=== PATIENT | female | born 1940 | race Caucasian/White ===

== ENCOUNTER 2017-06-26 09:20 | Outpatient (CLI) | payer MEDICARE ==
[~2017-06-26 09:20] MED LIST: Sodium Chloride 0.9% 15 ML NEB ONE
--- NOTE | 2017-06-26 12:42 | HP ---
DATE OF SERVICE: 06/26/2017. HISTORY OF PRESENT ILLNESS: Ms. Светлана Garcia is a very pleasant 77-year-old accompanied by her daughter and a caregiver who presents to the Wound Center for evaluation of an ulceration of the right medial heel. The patient also has a wound of the left anterior lower leg in addition to a skin tear of the right upper extremity. The patient's daughter states that Ms. Garcia has had a right medial heel wound for the past 3 weeks. The patient's daughter states that suddenly one morning, a blister over the right medial heel was noted which the patient's daughter thought may have developed from pressure or shear stress from a shoe or from lying in bed. The patient's daughter states that Ms. Garcia first saw a physician's research assistant professor in the [facility] [address] for the intact blister of her right medial heel. The patient's daughter was told to apply moleskin around the blister. When the blister worsened in its appearance, the patient was seen by Dr. Dorado. The patient's daughter states that a goode and red discoloration around the wound was noted, and upon opening of the right medial heel lesion, yellow thick drainage was encountered. The patient's daughter states that the base of the wound appeared necrotic. At this time, the patient was referred to the Wound Center for further evaluation and treatment. Cultures of the wound were also obtained by Dr. Dorado. At this time, the patient was placed on dressing changes by [facility] and Aquacel for the right medial heel wound followed by 4 x 4s and Kerlix. Apparently, the patient had copious drainage associated with this right medial heel lesion. PAST MEDICAL HISTORY: 1. Diabetes mellitus. 2. Arthritis. 3. Parkinson's. PAST SURGICAL HISTORY: 1. Hysterectomy. 2. Appendectomy. MEDICATIONS: 1. Bactrim DS. 2. Lasix. 3. Sinemet. 4. Macrodantin. 5. Pantoprazole. 6. Donepezil. 7. Clonazepam. 8. Gabapentin. 9. Potassium chloride. 10. Mirtazapine. 11. Prednisone. 12. Toprol-XL. 13. HCTZ. 14. Norvasc. 15. Amaryl. 16. Primidone. 17. Duloxetine. 18. Singulair. 19. Metformin. 20. Crestor. 21. Eliquis. 22. Magnesium. 23. Vitamin C. 24. Vitamin D3. 25. Centrum. 26. Tylenol #3. ALLERGIES: E.E.S., DURICEF, and Z-RICO. SOCIAL HISTORY: Social history is negative for tobacco or ETOH use. FAMILY HISTORY: Family history is negative for diabetes mellitus or coronary artery disease. REVIEW OF SYSTEMS: The patient's daughter reports that the patient has had shingles x4. PHYSICAL EXAMINATION: VITAL SIGNS: Temperature 98.2, pulse 77, respirations 19, blood pressure 138/ 59. Accu-Chek 65. GENERAL: A 77-year-old female sitting on wheelchair in examination room, in no acute distress. HEENT: Normocephalic, atraumatic. NECK: No nuchal rigidity. CHEST: Clear to auscultation. CARDIOVASCULAR: Regular rate and rhythm. ABDOMEN: Soft. EXTREMITIES: An ulceration of the right medial heel is present, which measures approximately 4.0 x 2.2 cm. Granulation tissue is present within the wound margins. No purulent drainage is associated with the wound. No erythema of the skin surrounding the wound is present. No maceration of the skin of the periwound is noted. A skin tear of the right upper extremity is present, which appears to be healing without complications or any signs of infection. A blister of the left anterior lower leg is present, which measures approximately 2.5 x 1.5 cm. The blister appears to be filled with hemorrhagic fluid. The blister is intact. No erythema of the skin surrounding the blister is present. No maceration of the skin of the periwound is noted. A posterior tibial pulse is palpable on the left. Edema of the left foot and lower leg is present on exam today. ASSESSMENT AND PLAN: 1. Multiple extremity wounds as described above. For the right heel wound, the patient is to receive dressing changes of Silverlon, 4 x 4s, and Kerlix 3 times per week after cleansing and irrigation with the assistance of Home Health. For the blister of the left anterior lower leg, the patient is to receive weekly dressing changes of Silverlon, Webril, and the 3M Coban 2-layer compression system. For the right upper extremity skin tear, the patient is to receive dressing changes of Mepilex border 3 times per week after cleansing and irrigation. The patient is to continue p.o. antibiotics as previously prescribed. Orders will be transmitted to Home Health for the preceding dressing changes. I will see Ms. Garcia again in two weeks. The patient, her daughter, and her caregiver all understand and are in agreement with the preceding treatment plan. 2. Diabetes mellitus. The patient's Accu-Chek in clinic today is 65. The patient has been told that for optimal wound healing, her blood glucoses should remain below 150. 3. Arthritis. 4. Parkinson's. MTDD
== END 2017-06-26 09:21 | disposition home or self-care (01) ==
LOC: WCC 09:20
PROVIDERS: ATTEND Family Medicine
DX: E11.621 Type 2 diabetes mellitus with foot ulcer (principal); L97.419 Non-pressure chronic ulcer of right heel and midfoot with unspecified severity; M19.90 Unspecified osteoarthritis, unspecified site; G20 Parkinson's disease
CPT/HCPCS: 29581; 97139; G0463; 99203; A4218

== ENCOUNTER 2017-07-10 10:21 | Outpatient (CLI) | payer MEDICARE ==
--- NOTE | 2017-07-10 12:00 | PRG ---
DATE OF SERVICE: 07/10/2017 HISTORY: Ms. Светлана Garcia is a very pleasant 77-year-old accompanied by a caregiver who presents to [facility] for evaluation of an ulceration of the left medial heel. The patient also has a wound of the left anterior lower leg. The patient's daughter stated at the time of the patient's initial presentation to the Wound Center that Ms. Garcia had developed a left medial heel wound 3 weeks previo usly. The patient's daughter stated that suddenly one morning, a blister over the left medial heel w as noted which she thought may have developed from pressure or shear stress from a shoe or from lying in bed. The patient's daughter stated that Ms. Garcia first saw a physician's physical laboratory assistant in the [facility] for the intact blister of her left medial heel. The patient's daughter was told to apply Mo leskin around the blister. When the blister worsened in its appearance, the patient was seen by Dr. Dorado. The patient's daughter stated that a goode and red discoloration around the wound was noted and upon opening of the left medial heel lesion, yellow thick drainage was encountered. The patient's d aughter stated that the base of the wound appeared necrotic. At this time, the patient was referred to the Wound Center for further evaluation and treatment. Cultures of the wound were also obtained b kali Dorado. At this time, the patient was placed on dressing changes by Home Health of hydrogel and Aquacel AG for the left medial heel wound followed by 4 x 4s and Kerlix. Apparently, the patient exp erienced copious drainage associated with her left medial heel lesion. After being seen in the Wound Center, the patient was placed on dressing changes of Silverlon, 4 x 4's, and Kerlix 3 times per wee k after cleansing and irrigation for the right heel wound. Silverlon, Webril, and the 3m Coban 2 lay er compression system were applied to the wound of the left anterior lower leg. The patient has been receiving dressing changes by Home Health as prescribed. PHYSICAL EXAMINATION: VITAL SIGNS: Temperature 97.9, pulse 66, respirations 18, blood pressure 184/77. Accu-Chek 152. EXTREMITIES: An ulceration of the right medial heel is present which measures approximately 2.8 x 0. 9 cm. Granulation tissue is present within the wound margins. No purulent drainage is associated wi th the wound. No erythema of the skin surrounding the wound is present. No maceration of the skin o f the periwound is noted. A wound of the left anterior lower leg is present which measures approxima tely 2.0 x 1.3 cm. No purulent drainage is associated with the wound. No erythema of the skin surro unding the wound is present. No maceration of the skin of the periwound is noted. A dorsalis pedis pulse is palpable on the left. No significant edema of the left foot or lower leg is present on exam today. ASSESSMENT AND PLAN: 1. Right heel and left anterior lower leg wounds as described above. For the right heel wound, dres sing changes of Silverlon, 4 x 4s and Kerlix will be continued 3 times per week after cleansing and i rrigation with the assistance of Home Health. For the wound of the left anterior lower leg, the chuyita ent is to receive weekly dressing changes of Silverlon, Webril, and 3m Coban 2 layer compression syst em. Orders will be transmitted to Home Health for the preceding dressing changes. I will see Ms. Michael arreola again in two weeks. 2. Diabetes mellitus. The patient's Accu-Chek in clinic today is 152. The patient has been reminde d that for optimal wound healing, her blood glucoses should remain below 150. 3. Arthritis. 4. Parkinson's.
== END 2017-07-10 10:22 | disposition home or self-care (01) ==
LOC: WCC 10:21
PROVIDERS: ATTEND Family Medicine
DX: E11.621 Type 2 diabetes mellitus with foot ulcer (principal); L97.419 Non-pressure chronic ulcer of right heel and midfoot with unspecified severity; S81.802D Unspecified open wound, left lower leg, subsequent encounter; M19.90 Unspecified osteoarthritis, unspecified site; G20 Parkinson's disease

== ENCOUNTER 2017-07-24 11:16 | Outpatient (CLI) | payer MEDICARE ==
--- NOTE | 2017-07-24 20:06 | PRG ---
DATE OF SERVICE: 07/24/2017 HISTORY: Ms. Светлана Garcia is a very pleasant 77-year-old, accompanied by a caregiver, who presents to the Wound Center for evaluation of an ulceration of the right medial heel. The patient also has a wo und of the left anterior lower leg. The patient's daughter stated at the time of the patient's initi al presentation to the Wound Center, Ms. Garcia had developed a right medial heel wound 3 weeks previo usly. The patient's daughter stated that suddenly one morning, a blister over the right medial heel was noted which she thought may have developed from pressure or shear stress from a shoe or from lyin g in bed. The patient's daughter stated that Ms. Garcia first saw physician's nurse practitioner physicians assistant in the [facility] for the intact blister of her right medial heel. The patient's daughter was told to apply M oleskin around the blister. When the blister worsened in its appearance, the patient was seen by Dr. Dorado. The patient's daughter stated that a goode and red discoloration around the wound was noted an d upon opening of the right medial heel lesion, yellow thick drainage was encountered. The patient's daughter stated that the base of the wound appeared necrotic. At this time, the patient was referre d to the Wound Center for further evaluation and treatment. Cultures of the wound were also obtained by Dr. Dorado. At this time, the patient was placed on dressing changes by Home Health of hydrogel an d Aquacel AG for the right medial heel wound followed by 4 x 4s and Kerlix. Apparently, the patient experienced copious drainage associated with her right medial heel lesion. [facility], the patient was placed on dressing changes of Silverlon, 4 x 4's, and Kerlix 3 times per week after cleansing and irrigation for the right heel wound. Silverlon, Webril, and the 3m Coban 2 layer compression system were applied to the wound of the left anterior lower leg. The patient has been receiving dressing changes by Home Health as previously prescribed. PHYSICAL EXAMINATION: VITAL SIGNS: Temperature 98.6, pulse 90, respirations 19, blood pressure 131/75. Accu-Chek 117. EXTREMITIES: An ulceration of the right medial heel is present which measures approximately 2.0 x 0. 9 cm. Granulation tissue is present within the wound margins. No purulent drainage is associated wi th the wound. No erythema of the skin surrounding the wound is present. No maceration of the skin o f the periwound is noted. A wound of the left anterior lower leg is present which measures approxima tely 1.3 x 2.0 cm. No purulent drainage is associated with the wound. No erythema of the skin surro unding the wound is present. No maceration of the skin of the periwound is noted. ASSESSMENT AND PLAN: 1. Right heel and left anterior lower leg wound as described above. For the right heel wound, dress ing changes of Silverlon, 4 x 4s and Kerlix will be continued 3 times per week after cleansing and ir rigation with the assistance of Home Health. For the wound of the left anterior lower leg, the patie nt is to receive dressing changes of Silverlon and Mepilex border also 3 times per week after cleansi ng and irrigation with the assistance of Home Health. I will see Ms. Garcia again in two weeks. I sandoval ve explained to the patient should the ulceration of the left anterior lower leg failed to improve in its appearance with the preceding dressing changes, consideration will need to be given to the resum ption of treatment with the 3m Coban 2 layer compression system. The patient understands and is in a greement with the preceding treatment plan. 2. Diabetes mellitus. The patient's Accu-Chek in clinic today is 117. The patient has been reminde d that for optimal wound healing, her blood glucoses should remain below 150. 3. Arthritis. 4. Parkinson's.
== END 2017-07-24 11:17 | disposition home or self-care (01) ==
LOC: WCC 11:16
PROVIDERS: ATTEND Family Medicine
DX: E11.621 Type 2 diabetes mellitus with foot ulcer (principal); L97.419 Non-pressure chronic ulcer of right heel and midfoot with unspecified severity; S81.802D Unspecified open wound, left lower leg, subsequent encounter; M19.90 Unspecified osteoarthritis, unspecified site; G20 Parkinson's disease
CPT/HCPCS: 97602

== ENCOUNTER 2017-08-07 10:56 | Outpatient (CLI) | payer MEDICARE ==
--- NOTE | 2017-08-07 12:15 | PRG ---
DATE OF SERVICE: 08/07/2017 HISTORY: Ms. Светлана Garcia is a very pleasant 77-year-old accompanied by a caregiver who presents to [facility] for evaluation of an ulceration of the right medial heel. The patient also has a woun d of the left anterior lower leg. For the ulceration of the right medial heel, the patient has been receiving dressing changes of Silverlon, 4 x 4's, and Kerlix 3 times per week after cleansing and irr igation with the assistance of Home Health. For the wound of her left anterior lower leg, the patien t has been receiving dressing changes of Silverlon and Mepilex border and also 3 times per week after cleansing and irrigation with the assistance of Home Health. Ms. Garcia has no complaints today. [facility] denies any fever or chills. PHYSICAL EXAMINATION: VITAL SIGNS: Temperature 98.5, pulse 78, respirations 18, blood pressure 133/69. Accu-Chek 165. EXTREMITIES: An ulceration of the right medial heel is present, which measures approximately 0.2 x 0 .3 cm. Granulation tissue is present within the wound margins. No purulent drainage is associated w ith the wound. No erythema of the skin surrounding the wound is present. No maceration of the skin of the periwound is noted. A wound of the left anterior lower leg is present, which measures approxi mately 0.7 x 0.4 cm. No purulent drainage is associated with the wound. No erythema of the skin carolee rounding the wound is present. No maceration of the skin of the periwound is noted. ASSESSMENT AND PLAN: 1. Right heel and left anterior lower leg wound as described above. For the right heel wound, dress ing changes of Silverlon, 4 x 4s and Kerlix will be continued 3 times per week after cleansing and ir rigation with the assistance of Home Health. For the wound of the left anterior lower leg, the patie nt is to receive dressing changes of Silverlon and Mepilex border also 3 times per week after cleansi ng and irrigation with the assistance of Home Health. I will see Ms. Garcia again in two weeks. 2. Diabetes mellitus. The patient's Accu-Chek in clinic today is 165. The patient has been reminde d that for optimal wound healing, her blood glucoses should remain below 150. 3. Arthritis. 4. Parkinson's.
[2017-08-07] MEDS ORDERED: Sodium Chloride 0.9% 15 ML NEB ONE (21:21)
== END 2017-08-07 10:57 | disposition home or self-care (01) ==
LOC: WCC 10:56
PROVIDERS: ATTEND Family Medicine
DX: E11.621 Type 2 diabetes mellitus with foot ulcer (principal); L97.419 Non-pressure chronic ulcer of right heel and midfoot with unspecified severity; L97.229 Non-pressure chronic ulcer of left calf with unspecified severity; G20 Parkinson's disease; M19.90 Unspecified osteoarthritis, unspecified site
CPT/HCPCS: 97602; A4218

== ENCOUNTER 2017-11-18 12:45 | Inpatient (IN) | payer MEDICARE, BC ==
[2017-11-18 14:05] LABS: Bilirubin Negative (Negative); Blood, Urine Large (Negative); Clarity CLOUDY (Clear); Glucose, Urine (Dipstick) Negative (Negative); Leukocyte Large (Negative); Nitrite Positive (Negative); Protein, Urine (Dipstick) Trace mg/dL (Neg-Trace); Specific Gravity, Urine 1.018 (1.002-1.036); Urobilinogen 0.2 mg/dL (0.2-1.0); pH, Urine 5.5 (5.0-9.0)
[2017-11-18 14:06] LABS: Bacteria/HPF 2+ HPF (None Seen); Hyaline Casts/LPF 4-6 HYALINE CAST LPF (0-3 Hyaline); Pathc Cast-AUWi Flag 1.59 (0-2.49); RBC/HPF 0-3 HPF (0-3); Squamous Epithelial None Seen HPF (0-3)
[2017-11-18 14:15] LABS: Yeast-All Forms None Seen HPF (None Seen)
[2017-11-18 14:17] LABS: #Eosinphils 0.3 thou/uL (0.0-0.7); #Lymphocytes 2.1 thou/uL (1.20-3.40); #Monocytes 0.6 thou/uL (0.11-0.59); #Neutrophils 3.5 thou/uL (1.40-6.50); %Basophils 0.2 % (0.0-1.0); %Eosinophils 4.4 % (0.0-10.0); %Lymphocytes 32.8 % (21.0-51.0); %Monocytes 9.5 % (0.0-10.0); %Neutrophils 53.1 % (42.0-75.0); Hemoglobin 10.4 g/dL (12.0-16.0); Mean Corpuscular HGB CONC 33.7 g/dL (32.0-36.0); Mean Corpuscular Hemoglobin 29.1 pg (27.0-31.0); Mean Corpuscular Volume 86.5 fL (78.0-98.0); Mean Platelet Volume 7.4 fL (7.4-10.4); Platelet Count 306 thou/uL (130-400); RBC Distribution Width 14.9 % (11.5-14.5); Red Blood Cell (RBC) Count 3.56 mill/uL (4.20-5.40); White Blood Cell (WBC) Count 6.5 thou/uL (4.8-10.8)
--- NOTE | 2017-11-18 14:19 | RAD ---
SINGLE VIEW OF THE CHEST: Comparison: None. History: Altered mental status and lethargy for one week. FINDINGS: Single view of the chest shows a normal sized cardiomediastinal silhouette. There is no evidence of c onsolidation, mass, or pleural effusion. The bones are unremarkable. IMPRESSION: No evidence of acute cardiopulmonary disease. POS: [facility]
[2017-11-18 14:34] LABS: ALT (SGPT) Less than 7 U/L (8-55); AST (SGOT) 13 U/L (5-34); Albumin 2.7 g/dL (3.4-4.8); Alkaline Phosphatase 74 U/L (40-150); Anion Gap 14 mmol/L (10-20); BUN (Urea Nitrogen) 6 mg/dL (9.8-20.1); Bilirubin, Total 0.5 mg/dL (0.2-1.2); Calc. Creatinine Clearance 0 mL/min (70-130); Calcium 9.3 mg/dL (7.8-10.44); Carbon Dioxide 23 mmol/L (23-31); Chloride 107 mmol/L (98-107); Estimated GFR-MDRD 69; Globulin 2.4 g/dL (2.4-3.5); Glucose 248 mg/dL (83-110); Protein, Total 5.1 g/dL (6.0-8.3); Sodium 140 mmol/L (136-145)
[2017-11-18] MEDS ORDERED: ISOVUE-370 76%-LOCM 1 ML ONE (14:46)
[2017-11-18 15:25] LABS: CKMB 0.8 ng/mL (0-6.6); Troponin I Less than 0.010 ng/mL (< 0.028)
[2017-11-18] MEDS ORDERED: cefTRIAXone\\ROCEPHIN 2 GM VIAL ONE (15:33)
--- NOTE | 2017-11-18 15:36 | CT ---
CT OF THE BRAIN WITHOUT CONTRAST: INDICATION: Altered mental status and lethargy. COMPARISON: None. FINDINGS: There is moderate chronic small-vessel white matter ischemic change and mild generalized cerebral and cerebellar atrophy. Septum pellucidum and third ventricle are midline. There are mild dural-based calcifications seen involving the falx and suspected along the tentorium. There are air fluid levels within the maxillary sinuses bilaterally. There is mucosal thickening and air fluid levels within t he ethmoid air cells. Mastoid air cells are clear. The skull is intact. IMPRESSION: 1. Findings concerning for acute sinusitis involving the maxillary sinus and the ethmoid air cells. 2. No acute intracranial abnormality demonstrated. 3. Moderate chronic small-vessel white matter ischemic change. POS: [facility]
--- NOTE | 2017-11-18 15:38 | CT ---
CTA OF THE THORAX UTILIZING IV CONTRAST AND 3D REFORMATTED IMAGING: INDICATION: History of altered mental status and lethargy. FINDINGS: No central or segmental pulmonary embolus is demonstrated. The great vessels appear within normal li mits. There is scattered calcification involving the coronary artery and thoracic aorta. There are moderate mitral annular calcifications. There are very small bilateral pleural effusions and bibasilar atelectasis. No definite confluent ai rspace opacity or pneumothorax is evident. Visualized upper abdomen is unremarkable for acute abnormality. There is diffuse osteopenia. There is scattered degenerative and osteoarthritic change. IMPRESSION: 1. No central or segmental pulmonary embolus. 2. Bibasilar atelectasis. POS: [facility]
[2017-11-18] MEDS ORDERED: HumaLOG 300 UNITS/3 ML VIAL SC PRN (19:39)
[2017-11-18] MEDS ORDERED: Dextrose 5% in Water 1,000 ML IV PRN (19:39)
[2017-11-18] MEDS ORDERED: Guaifenesin DM 100-10/5 ML UDCUP PO PRN (19:40)
[2017-11-18] MEDS ORDERED: Bisacodyl 5 MG TAB PO PRN (19:40)
[2017-11-18] MEDS ORDERED: Senokot 8.6 MG TAB PO PRN (19:40)
[2017-11-18] MEDS ORDERED: Ondansetron ODT 4 MG TAB PO PRN (19:40)
[2017-11-18] MEDS ORDERED: Ondansetron HCl/PF 4 MG/2 ML Vial IVP PRN (19:40)
[2017-11-18] MEDS ORDERED: Pepto Bismol Chew TAB PO PRN (19:40)
[2017-11-18 20:59] LABS: Anion Gap 10 mmol/L (10-20); BUN (Urea Nitrogen) 6 mg/dL (9.8-20.1); Calc. Creatinine Clearance 0 mL/min (70-130); Calcium 8.7 mg/dL (7.8-10.44); Carbon Dioxide 26 mmol/L (23-31); Chloride 109 mmol/L (98-107); Estimated GFR-MDRD 74; Glucose 189 mg/dL (83-110); Potassium 3.9 mmol/L (3.5-5.1); Sodium 141 mmol/L (136-145)
[2017-11-18 21:00] LABS: #Eosinphils 0.3 thou/uL (0.0-0.7); #Lymphocytes 1.7 thou/uL (1.20-3.40); #Monocytes 0.6 thou/uL (0.11-0.59); #Neutrophils 3.2 thou/uL (1.40-6.50); %Basophils 0.6 % (0.0-1.0); %Eosinophils 4.8 % (0.0-10.0); %Lymphocytes 28.9 % (21.0-51.0); %Monocytes 10.9 % (0.0-10.0); %Neutrophils 54.8 % (42.0-75.0); Hemoglobin 10.2 g/dL (12.0-16.0); Mean Corpuscular HGB CONC 33.9 g/dL (32.0-36.0); Mean Corpuscular Hemoglobin 29.4 pg (27.0-31.0); Mean Corpuscular Volume 86.8 fL (78.0-98.0); Mean Platelet Volume 7.3 fL (7.4-10.4); Platelet Count 282 thou/uL (130-400); RBC Distribution Width 14.8 % (11.5-14.5); Red Blood Cell (RBC) Count 3.48 mill/uL (4.20-5.40); White Blood Cell (WBC) Count 5.9 thou/uL (4.8-10.8)
[2017-11-18] MEDS: Sodium Chloride 0.9% 1,000 ML IV SCH (22:42)
[2017-11-18] MEDS: Docusate 100 MG CAP PO SCH (22:42)
[2017-11-19 01:41] VITALS: BMI 30.3
[2017-11-19] MEDS ORDERED: clonazePAM 0.5 MG TAB PO PRN (05:43)
--- NOTE | 2017-11-19 06:30 | HP ---
CHIEF COMPLAINT: Obtained from electronic medical records, patient is being evaluated for lethargy. HISTORIAN: Electronic medical records, EMS medical staff. HISTORY OF PRESENT ILLNESS: This is a 77-year-old female with a past medical history of Parkinson's dementia, CVA, atrial fibrillation, diabetes mellitus type 2, hypertension, who is presenting from [facility] for altered mental status and lethargy, which has been progressively getting worse for the past week. Per the records, patient was recently treated for UTI and C. diff a week ag o. EMS C. diff and UTI results after treatment has been negative so patient arrives in our ED little lethargic. Patient's baseline is not really known, but per records, the patient walks around with a walker and is able to walk and toe walk. Upon talking to the patient, the patient states that she i s having some abdominal pain; however, the patient is not able to comprehend fully. REVIEW OF SYSTEMS: Positive for abdominal pain, otherwise documented in history of present illness. All other review of systems were reviewed and are negative. PAST MEDICAL HISTORY: Significant for Parkinson's dementia, atrial fibrillation, CVA, diabetes type 2, hypertension. PAST SURGICAL HISTORY: Unknown. PSYCHIATRIC HISTORY: Unknown. SOCIAL HISTORY: Cannot be obtained. FAMILY HISTORY: Reviewed and noncontributory to this hospital visit. ALLERGIES: Patient is allergic to ERYTHROMYCIN, INFLUENZA A VACCINE, AZITHROMYCIN. CURRENT MEDICATIONS: 1. Patient is on potassium chloride 10 mEq oral daily. 2. Lasix 20 mg oral daily. 3. Carbidopa/levodopa 25 mg/100 mg oral 3 times a day. 4. Losartan 25 mg oral daily. 5. Duloxetine 30 mg oral daily. 6. Primidone 100 mg oral daily. 7. Donepezil 5 mg oral daily. 8. Metoprolol tartrate 50 oral a day. 9. Eliquis 5 mg oral b.i.d. 10. Clonazepam 0.5 mg oral daily. 11. Vitamin D 1000 units oral daily. 12. Vitamin C 500 mg oral daily. 13. Humalog subcu sliding scale. 14. Mirtazapine 15 mg oral daily. 15. Pantoprazole 20 mg oral daily. PHYSICAL EXAMINATION: VITAL SIGNS: The vitals, the patient's blood pressure was 150/82, heart rate of 70, respiratory rate of 20, temperature of 98.1. GENERAL: The patient is lying in bed comfortably, not in apparent distress. Patient is able to answ er my question, states that she is having abdominal pain, otherwise does not have any other complaint s. HEENT: Normocephalic, atraumatic. Pupils are equal, round, and reactive to light. Extraocular move ments are intact. No scleral icterus noted. NECK: Supple, no JVDs, no tracheal deviations. RESPIRATORY: Chest, diminished breath sounds bilaterally in the lower lobes; however, anterior chest oreilly move symmetrically and there is no wheezing, rales, or rhonchi's that can be appreciated at th e anterior lung brasher. CARDIOVASCULAR: Positive S1, S2. Systolic murmur present, 2/6. ABDOMEN: Suprapubic tenderness noted. Normal bowel sounds. No pulsatile masses. No peritoneal sig ns. BACK: The patient has a stage II sacral decubitus. EXTREMITIES: Upper extremity, 5/5 upper extremity strength. The patient has some bandages wrapped a t the wrist region with some ecchymosis noted. Lower extremities, edema present bilaterally. Lower extremities, patient is not able to move the lower extremities. Ecchymosis noted bilaterally in lowe r extremities, good pulses bilaterally. NEUROLOGIC: Patient is uncooperative, but able to move upper extremities bilaterally. Lower extremi ties were not moving as much compared to the upper extremities. SKIN: The patient has a stage II sacral decubitus noted. Patient also has bilateral upper extremity ecchymosis and lower extremity ecchymosis with Ankur bandages wrapped around the upper extremity aroun d the wrist bilaterally. PSYCHIATRIC: The patient is alert, oriented x0 at this point. IMAGIN. CT of the head showed findings concerning for acute sinusitis involving the maxillary sinus and t he ethmoid cells. No acute intracranial abnormality demonstrated, moderate chronic small vessel whit e matter ischemic change. 2. CTA showed bibasilar atelectasis. No central or segmental pulmonary embolus. 3. CT of the chest, no acute cardiopulmonary process. LABORATORY DATA: WBC 6.5, hemoglobin 10.4, hematocrit 30.8, platelet 306. Electrolytes: Sodium 140 , potassium 4.0, chloride 107, carbon dioxide 23, BUN 6, creatinine 0.81, glucose 248. AST 13, ALT l ess than 7. Ammonia 18. BNP 78.6. Serum total protein is 5.1, albumin 2.7. Urinalysis, urine nitr ite is positive and leukocyte esterase is large. ASSESSMENT AND PLAN: This is a 77-year-old female with a history of UTI, presenting with: 1. Encephalopathy, likely due to urinary tract infection. At this point, urinalysis has been positi ve for nitrite and leukocyte esterase. We will start the patient on Rocephin. We will follow up on urine cultures. We will treat the patient and monitor patient's CBC in the a.m. 2. History of CVA. At this point, CT of the brain is negative for any acute cerebrovascular acciden t. We will continue patient on current medication. The patient is stable. 3. History of atrial fibrillation. We will continue patient on Eliquis. 4. History of diabetes mellitus. We will continue patient on diabetic medication, sliding scale. W e will monitor the patient's glucose closely. 5. History of hypertension, currently uncontrolled. We will continue patient on blood pressure medi cations as needed. 6. History of Parkinson's. We will continue patient on her Parkinson's medications. 7. Gastrointestinal prophylaxis. We will do Pepcid for GI prophylaxis and Eliquis for DVT prophylax is. 8. Sacral decubitus stage II. We will rotate patient and nurses will keep the eyes on the sacral de cubitus and address decubitus per protocol.
[2017-11-19] MEDS ORDERED: INSULIN GLARGINE HUM REC ANLOG 5 UNIT SQ SCH (08:00)
[2017-11-19] MEDS: Insulin Glargine 5 UNITS in Pre-Filled Syringe 1 EACH SC SCH (08:41)
[2017-11-19] MEDS: Metoprolol Tartrate 50 MG TAB PO SCH (08:42)
[2017-11-19] MEDS: Ascorbic Acid 500 mg Chewable Tablet PO SCH (08:42)
[2017-11-19] MEDS: Docusate 100 MG CAP PO SCH ×2 (08:42→21:00)
[2017-11-19] MEDS: Losartan 25 MG TAB PO SCH (08:42)
[2017-11-19] MEDS: Furosemide 20 MG TAB PO SCH (08:42)
[2017-11-19] MEDS: DULoxetine 30 MG CAP PO SCH (08:42)
[2017-11-19] MEDS: Carbidopa/Levodopa 25-250 mg Tablet PO SCH ×3 (08:42→21:00)
[2017-11-19] MEDS: Apixaban 5 MG TAB PO SCH ×2 (08:42→21:00)
[2017-11-19] MEDS: Magnesium Oxide 400 MG TAB PO SCH (08:43)
--- NOTE | 2017-11-19 12:48 | PRG ---
DATE OF SERVICE: 11/19/2017 Patient's history are reviewed and discussed with the patient's and son and reviewed the anisha rds, examining the patient. They report a complicated recent history and patient was doing well up u october. She had an ankle injury and then a heel ulcer, was in rehab. Subsequently developed ur inary tract infection and C. diff that was treated and she subsequently had a recurrence of UTI and p ossibly more C. diff now. She has had lethargy for the last several days and currently shows evidenc e of urinary tract infection yet again. At the moment, patient is a bit brighter and more alert than she has been the last several days. They also report that she has not been eating a couple of weeks because of early satiety. PHYSICAL EXAMINATION: VITAL SIGNS: Temperature is 99.1, pulse 96, respirations 16, O2 sat 98% on 2 liters nasal cannula, B P 128/61. GENERAL: She is age appropriate. HEART: Regular, without murmurs. LUNGS: Clear. ABDOMEN: Benign. EXTREMITIES: Warm and dry. LABORATORY DATA: Already revealing a gram negative adri in the urine. Blood culture is negative so f ar. PLAN: We will continue with the Rocephin until we can get specifics on the urine culture. Family al so request to see Dr. Hammer's, patient's neurologist for Parkinson's disease and they are somewhat dedrick perate to try to get her back to her baseline, so we will go ahead and consult him as well. We will go ahead and ask physical therapy to see the patient, so we cannot lose too much ground while she is here.
[2017-11-19] MEDS: Sodium Chloride 0.9% 1,000 ML IV SCH (15:05)
[2017-11-19] MEDS: cefTRIAXone\\ROCEPHIN 1 GM in Sodium Chloride 0.9% 100 ML IVPB SCH (16:06)
[2017-11-19] MEDS: Donepezil HCl 5 MG TAB PO SCH (21:00)
[2017-11-19] MEDS: Primidone 50 MG TAB PO SCH (21:00)
[2017-11-19] MEDS: clonazePAM 0.5 MG TAB PO SCH (21:00)
[2017-11-19] MEDS: Mirtazapine 15 MG TAB PO SCH (21:00)
[2017-11-20] MEDS: Sodium Chloride 0.9% 1,000 ML IV SCH (06:27)
--- NOTE | 2017-11-20 08:42 | PDOC.PN ---
- Subjective Encounter Start Date: 11/20/17 Encounter Start Time: 07:40 Sleeping. Easily awakens. At baseline, but persistent confusion related to dementia. - Objective Vital Signs & Weight: Vital Signs (12 hours) Temp Pulse Resp BP Pulse Ox 11/20/17 07:55 98.0 F 95 22 H 138/77 100 11/19/17 21:29 99.5 F 96 18 152/64 H 99 11/19/17 21:00 99.5 F 96 18 Weight Admit Weight 187 lb 14.4 oz Weight 187 lb 14.4 oz I&O: 11/19/17 11/20/17 11/21/17 06:59 06:59 06:59 Intake Total 660 1480 Balance 660 1480 Result Diagrams: 11/18/17 20:30 11/18/17 20:30 Additional Labs: Accuchecks 11/20/17 11/19/17 11/19/17 05:19 21:33 16:45 POC Glucose 187 H 177 H 187 H 11/19/17 11/18/17 11:56 20:36 POC Glucose 184 H 185 H Phys Exam - Physical Examination Constitutional: NAD Respiratory: no wheezing, no rales, no rhonchi, clear to auscultation bilateral Cardiovascular: RRR, no significant murmur, no rub Gastrointestinal: soft, non-tender, no distention, positive bowel sounds Dx/Plan (1) Metabolic encephalopathy Code(s): G93.41 - METABOLIC ENCEPHALOPATHY Status: Acute Comment: Likely secondary to UTI. May be a component of underlying dementia/PD. Consulted Neurology per patient/family request. (2) UTI due to Klebsiella species Code(s): N39.0 - URINARY TRACT INFECTION, SITE NOT SPECIFIED; B96.1 - KLEBSIELLA PNEUMONIAE THE CAUSE OF DISEASES CLASSD ELSWHR Status: Acute Comment: Sensitive to Rocephin. Given the recurrent nature of her infections and hospitalizations, will be more aggressive with IV abx to ensure resolution. Has multiple allergies that limit abx options going forward. (3) Diabetes mellitus Code(s): E11.9 - TYPE 2 DIABETES MELLITUS WITHOUT COMPLICATIONS Status: Acute Comment: Continue with home meds, accuchecks. Generally below 200. (4) Atrial fibrillation Code(s): I48.91 - UNSPECIFIED ATRIAL FIBRILLATION Status: Acute Comment: On Eliquis. Good rate. Sounds regular now. (5) Hypertension Code(s): I10 - ESSENTIAL (PRIMARY) HYPERTENSION Status: Acute Comment: Stable. Continue Cozaar and Lopressor. (6) Sacral decubitus ulcer, stage II Code(s): L89.152 - PRESSURE ULCER OF SACRAL REGION, STAGE 2 Status: Acute Comment: Wound Care consult. (7) Physical deconditioning Code(s): R53.81 - OTHER MALAISE Status: Acute (8) Dysphagia Code(s): R13.10 - DYSPHAGIA, UNSPECIFIED Status: Acute Comment: Speech evaluated. Challenged with encephalopathy. Will reassass. NPO until then. Patient has not been eating well over past couple of weeks. (9) Parkinsons disease Code(s): G20 - PARKINSON'S DISEASE Status: Acute Comment: Continue home regimen. Appears to be fairly well controlled. - Plan * As above.
[2017-11-20 09:01] LABS: #Eosinphils 0.3 thou/uL (0.0-0.7); #Lymphocytes 1.8 thou/uL (1.20-3.40); #Monocytes 0.5 thou/uL (0.11-0.59); #Neutrophils 3.1 thou/uL (1.40-6.50); %Basophils 0.4 % (0.0-1.0); %Eosinophils 4.4 % (0.0-10.0); %Lymphocytes 32.3 % (21.0-51.0); %Monocytes 8.8 % (0.0-10.0); Hemoglobin 9.6 g/dL (12.0-16.0); Mean Corpuscular HGB CONC 33.8 g/dL (32.0-36.0); Mean Corpuscular Hemoglobin 29.1 pg (27.0-31.0); Mean Corpuscular Volume 86.1 fL (78.0-98.0); Mean Platelet Volume 7.1 fL (7.4-10.4); Platelet Count 263 thou/uL (130-400); RBC Distribution Width 14.6 % (11.5-14.5); Red Blood Cell (RBC) Count 3.28 mill/uL (4.20-5.40); White Blood Cell (WBC) Count 5.7 thou/uL (4.8-10.8)
[2017-11-20 09:17] LABS: Anion Gap 13 mmol/L (10-20); BUN (Urea Nitrogen) 5 mg/dL (9.8-20.1); Calc. Creatinine Clearance 99 mL/min (70-130); Calcium 8.8 mg/dL (7.8-10.44); Carbon Dioxide 24 mmol/L (23-31); Chloride 110 mmol/L (98-107); Estimated GFR-MDRD 90; Glucose 164 mg/dL (83-110); Potassium 3.4 mmol/L (3.5-5.1); Sodium 144 mmol/L (136-145)
[2017-11-20] MEDS: Ascorbic Acid 500 mg Chewable Tablet PO SCH ×2 (09:30→09:50)
[2017-11-20] MEDS: Furosemide 20 MG TAB PO SCH ×3 (09:30→11:54)
[2017-11-20] MEDS: Apixaban 5 MG TAB PO SCH ×3 (09:30→21:08)
[2017-11-20] MEDS: Metoprolol Tartrate 50 MG TAB PO SCH ×3 (09:30→11:52)
[2017-11-20] MEDS: Carbidopa/Levodopa 25-250 mg Tablet PO SCH ×4 (09:30→21:09)
[2017-11-20] MEDS: Losartan 25 MG TAB PO SCH ×3 (09:30→11:51)
[2017-11-20] MEDS: DULoxetine 30 MG CAP PO SCH ×2 (09:30→09:51)
[2017-11-20] MEDS: Magnesium Oxide 400 MG TAB PO SCH ×3 (09:30→11:52)
[2017-11-20] MEDS: Docusate 100 MG CAP PO SCH ×3 (09:30→21:08)
[2017-11-20] MEDS: Insulin Glargine 5 UNITS in Pre-Filled Syringe 1 EACH SC SCH (09:47)
--- NOTE | 2017-11-20 11:35 | CON ---
DATE OF CONSULTATION: 11/19/2017 REFERRING PROVIDER: Dr. Joe Kerr. REASON FOR CONSULTATION: Altered mental status. HISTORY OF PRESENT ILLNESS: Ms. Garcia is a pleasant 77-year-old female who has been consulted for evaluation of altered mental status. History is obtained from patient's medical chart. The patient is known to me from my clinic. She has a history of Parkinson disease and essential tremors. She presented with with changes in mentation. Apparently, she has been having increasing lethargy and increasing difficulty with gait imbalance as well as changes in mentation over the past few days that has been gradually getting worse. She has been able to walk with the support of a walker; however, over the past few days, she is unable to perform any tasks. She is disoriented to person, place, and time. For this reason, the patient's family had brought her to the [facility]. PAST MEDICAL HISTORY: Significant for Parkinson disease, dementia, atrial fibrillation, history of stroke, hypertension, diabetes. PAST SURGICAL HISTORY: None significant. SOCIAL HISTORY: She does not smoke cigarettes, drink alcohol, or use illicit drugs. FAMILY HISTORY: Noncontributory. CURRENT MEDICATIONS: Please review MAR. ALLERGIES: Include ERYTHROMYCIN, AZITHROMYCIN, CEFADROXIL, PENICILLIN, and INFLUENZA VIRUS VACCINE. REVIEW OF SYSTEMS: Unable to perform. PHYSICAL EXAMINATION: VITAL SIGNS: Blood pressure of 166/74, pulse of 100, temperature of 98.9, respirations of 16, O2 saturation of 97% on room air. GENERAL: A well-developed, well-nourished woman in no apparent distress. RESPIRATORY: Clear to auscultation bilaterally. CARDIOVASCULAR: Regular rate and rhythm. NEUROLOGIC: Mental status: The patient is drowsy appearing. She does wake up to verbal stimuli. She is able to state her name; however, unable to state her age, unable to follow any commands. Speech and language appears fluent. Cranial nerves: Pupils are 3 mm and reactive. Visual brasher are full to threat. Extraocular muscles are intact. Face appears symmetric. Motor exam showed upper extremities. There may be some gegenhalten present. Rest of the neurological exam could not be performed. LABORATORY DATA: Reviewed, which included CBC, CMP, urinalysis, which is significant for hemoglobin 10.2, hematocrit 30.2, glucose of 189. Urinalysis shows greater than 50 to too numerous to count wbc's, 2+ bacteria, positive nitrites, and large leukocyte esterase, otherwise negative. IMAGING STUDIES: CT scan of the head was reviewed and showed no acute intracranial abnormality. IMPRESSION: 1. Altered mental status, likely toxic metabolic encephalopathy 2. Urinary tract infection. 3. Parkinson disease. 4. Dementia. Ms. Garcia is a pleasant 77-year-old female with a history of Parkinson disease and dementia who presented with increasing worsening of cognition, alertness, and confusion. She is found to have urinary tract infection. This is likely the cause for her changes in mentation and likely resulting in toxic metabolic encephalopathy. At this time, I will recommend continuing current medical management. No further neurological workup needed from my standpoint. Thank you for consultation. JOHN
[2017-11-20] MEDS: cefTRIAXone\\ROCEPHIN 1 GM in Sodium Chloride 0.9% 100 ML IVPB SCH (16:50)
[2017-11-20] MEDS: Insulin Regular 300 UNITS/3 ML VIAL SC PRN (17:01)
[2017-11-20] MEDS: Mirtazapine 15 MG TAB PO SCH (21:08)
[2017-11-20] MEDS: Donepezil HCl 5 MG TAB PO SCH (21:08)
[2017-11-20] MEDS: clonazePAM 0.5 MG TAB PO SCH (21:08)
[2017-11-20] MEDS: Primidone 50 MG TAB PO SCH (21:09)
[2017-11-21] MEDS: Sodium Chloride 0.9% 1,000 ML IV SCH (00:40)
[2017-11-21 04:26] LABS: #Basophils 0.1 thou/uL (0.0-0.2); #Eosinphils 0.4 thou/uL (0.0-0.7); #Lymphocytes 2.1 thou/uL (1.20-3.40); #Monocytes 0.7 thou/uL (0.11-0.59); %Basophils 0.7 % (0.0-1.0); %Eosinophils 5.9 % (0.0-10.0); %Lymphocytes 28.8 % (21.0-51.0); %Monocytes 9.7 % (0.0-10.0); %Neutrophils 54.9 % (42.0-75.0); Hemoglobin 9.6 g/dL (12.0-16.0); Mean Corpuscular HGB CONC 33.8 g/dL (32.0-36.0); Mean Corpuscular Hemoglobin 29.1 pg (27.0-31.0); Mean Corpuscular Volume 85.9 fL (78.0-98.0); Mean Platelet Volume 7.2 fL (7.4-10.4); Platelet Count 303 thou/uL (130-400); RBC Distribution Width 14.6 % (11.5-14.5); Red Blood Cell (RBC) Count 3.29 mill/uL (4.20-5.40); White Blood Cell (WBC) Count 7.2 thou/uL (4.8-10.8)
[2017-11-21 04:33] LABS: Anion Gap 13 mmol/L (10-20); BUN (Urea Nitrogen) 5 mg/dL (9.8-20.1); Calc. Creatinine Clearance 99 mL/min (70-130); Carbon Dioxide 24 mmol/L (23-31); Chloride 110 mmol/L (98-107); Estimated GFR-MDRD 90; Glucose 185 mg/dL (83-110); Potassium 3.4 mmol/L (3.5-5.1); Sodium 144 mmol/L (136-145)
[2017-11-21] MEDS: Insulin Regular 300 UNITS/3 ML VIAL SC PRN ×2 (06:22→12:16)
[2017-11-21] MEDS: Insulin Glargine 5 UNITS in Pre-Filled Syringe 1 EACH SC SCH (09:09)
--- NOTE | 2017-11-21 09:09 | PDOC.PN ---
- Subjective Encounter Start Date: 11/21/17 Encounter Start Time: 09:08 Says she is feeling much better overall. No complaints. - Objective Vital Signs & Weight: Vital Signs (12 hours) Temp Pulse Resp BP BP Pulse Ox 11/21/17 08:00 98.9 F 90 16 159/79 H 100 11/21/17 05:13 98.1 F 89 20 137/98 H 92 L 11/21/17 00:23 79 129/98 H 92 L 11/20/17 23:55 98.5 F 84 20 119/57 L 95 Weight Admit Weight 187 lb 14.4 oz Weight 187 lb 14.4 oz I&O: 11/20/17 11/21/17 11/22/17 06:59 06:59 06:59 Intake Total 1480 1160 700 Balance 1480 1160 700 Result Diagrams: 11/21/17 03:51 11/21/17 03:51 Additional Labs: Accuchecks 11/21/17 11/20/17 11/20/17 03:51 20:34 16:51 POC Glucose 188 H 209 H 226 H 11/20/17 11:49 POC Glucose 173 H Phys Exam - Physical Examination Constitutional: NAD Awake and alert. HEENT: PERRLA Very small pustular lesions with erythematous halos perinasal, periorbital areas and forehead. Respiratory: no wheezing, no rales, no rhonchi, wheezing present Cardiovascular: RRR, no significant murmur, no rub Gastrointestinal: soft, non-tender, no distention, positive bowel sounds Generalized edema of extremities. Dx/Plan (1) Metabolic encephalopathy Code(s): G93.41 - METABOLIC ENCEPHALOPATHY Status: Acute Comment: Likely secondary to UTI. May be a component of underlying dementia/PD. Appreciate neurology consult. (2) UTI due to Klebsiella species Code(s): N39.0 - URINARY TRACT INFECTION, SITE NOT SPECIFIED; B96.1 - KLEBSIELLA PNEUMONIAE THE CAUSE OF DISEASES CLASSD ELSWHR Status: Acute Comment: Sensitive to Rocephin. Given the recurrent nature of her infections and hospitalizations, will be more aggressive with IV abx to ensure resolution. Has multiple allergies that limit abx options going forward. (3) Diabetes mellitus Code(s): E11.9 - TYPE 2 DIABETES MELLITUS WITHOUT COMPLICATIONS Status: Acute Comment: Continue with home meds, accuchecks. Generally below 200. (4) Atrial fibrillation Code(s): I48.91 - UNSPECIFIED ATRIAL FIBRILLATION Status: Acute Comment: On Eliquis. Good rate. Sounds regular now. (5) Hypertension Code(s): I10 - ESSENTIAL (PRIMARY) HYPERTENSION Status: Acute Comment: Stable. Continue Cozaar and Lopressor. (6) Sacral decubitus ulcer, stage II Code(s): L89.152 - PRESSURE ULCER OF SACRAL REGION, STAGE 2 Status: Acute Comment: Wound Care consult. (7) Physical deconditioning Code(s): R53.81 - OTHER MALAISE Status: Acute Comment: PT Consult. (8) Dysphagia Code(s): R13.10 - DYSPHAGIA, UNSPECIFIED Status: Acute Comment: Speech evaluated. On regular diet with pureed solids and thin liquids. (9) Parkinsons disease Code(s): G20 - PARKINSON'S DISEASE Status: Acute Comment: Continue home regimen. Appears to be fairly well controlled. - Plan * Hold IVF today. PT. Continue IV abx today. Hope to discharge tomorrow on oral abx. * Metrogel for trinity.
[2017-11-21] MEDS: Losartan 25 MG TAB PO SCH (09:10)
[2017-11-21] MEDS: Apixaban 5 MG TAB PO SCH ×2 (09:11→20:42)
[2017-11-21] MEDS: DULoxetine 30 MG CAP PO SCH (09:11)
[2017-11-21] MEDS: Furosemide 20 MG TAB PO SCH (09:12)
[2017-11-21] MEDS: Ascorbic Acid 500 mg Chewable Tablet PO SCH (09:12)
[2017-11-21] MEDS: Magnesium Oxide 400 MG TAB PO SCH (09:12)
[2017-11-21] MEDS: Carbidopa/Levodopa 25-250 mg Tablet PO SCH ×3 (09:13→20:42)
[2017-11-21] MEDS: Docusate 100 MG CAP PO SCH ×2 (09:13→20:42)
[2017-11-21] MEDS: Metoprolol Tartrate 50 MG TAB PO SCH (09:13)
[2017-11-21] MEDS: cefTRIAXone\\ROCEPHIN 1 GM in Sodium Chloride 0.9% 100 ML IVPB SCH (15:50)
[2017-11-21] MEDS: Mirtazapine 15 MG TAB PO SCH (20:42)
[2017-11-21] MEDS: Donepezil HCl 5 MG TAB PO SCH (20:42)
[2017-11-21] MEDS: clonazePAM 0.5 MG TAB PO SCH (20:42)
[2017-11-21] MEDS: Primidone 50 MG TAB PO SCH (20:43)
[2017-11-21] MEDS: metroNIDAZOLE 0.75% 70 GM TUBE VAG SCH (20:43)
[2017-11-21] MEDS ORDERED: metroNIDAZOLE 45 GM TUBE TOP SCH (21:00)
[2017-11-22 04:16] LABS: #Eosinphils 0.5 thou/uL (0.0-0.7); #Monocytes 0.5 thou/uL (0.11-0.59); #Neutrophils 3.6 thou/uL (1.40-6.50); %Basophils 0.7 % (0.0-1.0); %Eosinophils 7.1 % (0.0-10.0); %Lymphocytes 30.2 % (21.0-51.0); Hemoglobin 9.6 g/dL (12.0-16.0); Mean Corpuscular HGB CONC 34.2 g/dL (32.0-36.0); Mean Corpuscular Hemoglobin 29.4 pg (27.0-31.0); Mean Corpuscular Volume 85.8 fL (78.0-98.0); Mean Platelet Volume 6.8 fL (7.4-10.4); Platelet Count 308 thou/uL (130-400); RBC Distribution Width 14.6 % (11.5-14.5); Red Blood Cell (RBC) Count 3.28 mill/uL (4.20-5.40); White Blood Cell (WBC) Count 6.6 thou/uL (4.8-10.8)
[2017-11-22 04:35] LABS: Anion Gap 12 mmol/L (10-20); BUN (Urea Nitrogen) 4 mg/dL (9.8-20.1); Calc. Creatinine Clearance 104 mL/min (70-130); Calcium 8.9 mg/dL (7.8-10.44); Carbon Dioxide 25 mmol/L (23-31); Chloride 109 mmol/L (98-107); Estimated GFR-MDRD Greater than 90; Glucose 148 mg/dL (83-110); Potassium 3.2 mmol/L (3.5-5.1); Sodium 143 mmol/L (136-145)
[2017-11-22] MEDS: Insulin Glargine 5 UNITS in Pre-Filled Syringe 1 EACH SC SCH (09:48)
[2017-11-22] MEDS: DULoxetine 30 MG CAP PO SCH (09:50)
[2017-11-22] MEDS: Losartan 25 MG TAB PO SCH (09:51)
[2017-11-22] MEDS: Apixaban 5 MG TAB PO SCH ×2 (09:51→20:32)
[2017-11-22] MEDS: Furosemide 20 MG TAB PO SCH (09:52)
[2017-11-22] MEDS: Magnesium Oxide 400 MG TAB PO SCH (09:52)
[2017-11-22] MEDS: Docusate 100 MG CAP PO SCH (09:53)
[2017-11-22] MEDS: Metoprolol Tartrate 50 MG TAB PO SCH (09:53)
[2017-11-22] MEDS: Ascorbic Acid 500 mg Chewable Tablet PO SCH (09:54)
[2017-11-22] MEDS: metroNIDAZOLE 0.75% 70 GM TUBE VAG SCH (09:56)
[2017-11-22] MEDS: Carbidopa/Levodopa 25-250 mg Tablet PO SCH ×3 (09:57→20:32)
--- NOTE | 2017-11-22 13:00 | PDOC.PN ---
- Subjective Encounter Start Date: 11/22/17 Encounter Start Time: 10:50 Feels much better. Family believe she is much improved. She has no complaints. - Objective Vital Signs & Weight: Vital Signs (12 hours) Temp Pulse Resp BP Pulse Ox 11/22/17 08:00 99.0 F 99 18 159/84 H 95 Weight Admit Weight 187 lb 14.4 oz Weight 187 lb 14.4 oz I&O: 11/21/17 11/22/17 11/23/17 06:59 06:59 06:59 Intake Total 1160 700 Balance 1160 700 Result Diagrams: 11/22/17 03:59 11/22/17 03:59 Additional Labs: Accuchecks 11/22/17 11/21/17 11/21/17 11:38 20:21 16:47 POC Glucose 191 H 167 H 188 H Phys Exam - Physical Examination Constitutional: NAD Respiratory: no wheezing, no rales, no rhonchi, clear to auscultation bilateral Cardiovascular: RRR, no significant murmur Gastrointestinal: soft, non-tender, no distention, positive bowel sounds diffuse, non-pitting edema of UE's. No edema LE's Psychiatric: normal affect Deviation from normal: facial rash is much improved. Dx/Plan (1) Metabolic encephalopathy Code(s): G93.41 - METABOLIC ENCEPHALOPATHY Status: Acute Comment: Likely secondary to UTI. May be a component of underlying dementia/PD. Appreciate neurology consult. Much improved. (2) UTI due to Klebsiella species Code(s): N39.0 - URINARY TRACT INFECTION, SITE NOT SPECIFIED; B96.1 - KLEBSIELLA PNEUMONIAE THE CAUSE OF DISEASES CLASSD ELSWHR Status: Acute Comment: Sensitive to Rocephin. Given the recurrent nature of her infections and hospitalizations, will be more aggressive with IV abx to ensure resolution. Has multiple allergies that limit abx options going forward. (3) Diabetes mellitus Code(s): E11.9 - TYPE 2 DIABETES MELLITUS WITHOUT COMPLICATIONS Status: Acute Comment: Continue with home meds, accuchecks. Generally below 200. (4) Atrial fibrillation Code(s): I48.91 - UNSPECIFIED ATRIAL FIBRILLATION Status: Acute Comment: On Eliquis. Good rate. Sounds regular now. (5) Hypertension Code(s): I10 - ESSENTIAL (PRIMARY) HYPERTENSION Status: Acute Comment: Stable. Continue Cozaar and Lopressor. (6) Sacral decubitus ulcer, stage II Code(s): L89.152 - PRESSURE ULCER OF SACRAL REGION, STAGE 2 Status: Acute Comment: Wound Care consult. (7) Physical deconditioning Code(s): R53.81 - OTHER MALAISE Status: Acute Comment: PT Consult. (8) Dysphagia Code(s): R13.10 - DYSPHAGIA, UNSPECIFIED Status: Acute Comment: Speech evaluated. On regular diet with pureed solids and thin liquids. (9) Parkinsons disease Code(s): G20 - PARKINSON'S DISEASE Status: Acute Comment: Continue home regimen. Appears to be fairly well controlled. (10) Rosacea, acne Code(s): L71.9 - ROSACEA, UNSPECIFIED Status: Acute Comment: Improved. - Plan * Wean off oxygen today. Anticipate discharge tomorrow on PO abx. Daughter requested meeting with [facility].
[2017-11-22] MEDS: cefTRIAXone\\ROCEPHIN 1 GM in Sodium Chloride 0.9% 100 ML IVPB SCH (15:23)
[2017-11-22] MEDS ORDERED: Furosemide 20 MG TAB PO SCH (16:30)
[2017-11-22] MEDS: Insulin Regular 300 UNITS/3 ML VIAL SC PRN (17:54)
[2017-11-22] MEDS: Donepezil HCl 5 MG TAB PO SCH (20:32)
[2017-11-22] MEDS: Saccharomyces boulardii 250 MG CAP PO SCH (20:32)
[2017-11-22] MEDS: clonazePAM 0.5 MG TAB PO SCH (20:32)
[2017-11-22] MEDS: Primidone 50 MG TAB PO SCH (20:32)
[2017-11-22] MEDS: Acetaminophen 325 MG TAB PO PRN (20:33)
[2017-11-22] MEDS ORDERED: Senokot S 8.6-50 MG TAB PO SCH (21:00)
--- NOTE | 2017-11-22 21:46 | EKG ---
Test Reason : Blood Pressure : / mmHG Vent. Rate : 078 BPM Atrial Rate : 078 BPM P-R Int : 152 ms QRS Dur : 090 ms QT Int : 404 ms P-R-T Axes : 000 055 048 degrees QTc Int : 460 ms Normal sinus rhythm Normal ECG Confirmed by DANIA NOLAN M.D. ([id number]), general expeditor ALDAIR FLOYD ([id number] on 11/22/2017 9:46:25 PM Referred By: Confirmed By:DANIA NOLAN M.D.
[2017-11-23 04:48] LABS: #Eosinphils 0.4 thou/uL (0.0-0.7); #Lymphocytes 2.2 thou/uL (1.20-3.40); #Monocytes 0.5 thou/uL (0.11-0.59); #Neutrophils 3.8 thou/uL (1.40-6.50); %Basophils 0.4 % (0.0-1.0); %Eosinophils 5.8 % (0.0-10.0); %Lymphocytes 31.4 % (21.0-51.0); %Monocytes 7.7 % (0.0-10.0); %Neutrophils 54.8 % (42.0-75.0); Hemoglobin 9.2 g/dL (12.0-16.0); Mean Corpuscular HGB CONC 34.4 g/dL (32.0-36.0); Mean Corpuscular Hemoglobin 29.5 pg (27.0-31.0); Mean Corpuscular Volume 85.8 fL (78.0-98.0); Platelet Count 259 thou/uL (130-400); RBC Distribution Width 14.6 % (11.5-14.5); Red Blood Cell (RBC) Count 3.13 mill/uL (4.20-5.40); White Blood Cell (WBC) Count 6.9 thou/uL (4.8-10.8)
[2017-11-23 04:59] LABS: Anion Gap 13 mmol/L (10-20); BUN (Urea Nitrogen) 5 mg/dL (9.8-20.1); Calc. Creatinine Clearance 96 mL/min (70-130); Calcium 8.6 mg/dL (7.8-10.44); Carbon Dioxide 25 mmol/L (23-31); Chloride 109 mmol/L (98-107); Estimated GFR-MDRD 87; Glucose 153 mg/dL (83-110); Potassium 3.2 mmol/L (3.5-5.1); Sodium 144 mmol/L (136-145)
[2017-11-23] MEDS: DULoxetine 30 MG CAP PO SCH (08:29)
[2017-11-23] MEDS: Ascorbic Acid 500 mg Chewable Tablet PO SCH (08:29)
[2017-11-23] MEDS: Losartan 25 MG TAB PO SCH (08:29)
[2017-11-23] MEDS: Saccharomyces boulardii 250 MG CAP PO SCH ×2 (08:30→20:59)
[2017-11-23] MEDS: Metoprolol Tartrate 50 MG TAB PO SCH (08:30)
[2017-11-23] MEDS: Apixaban 5 MG TAB PO SCH ×2 (08:30→20:59)
[2017-11-23] MEDS: Furosemide 20 MG TAB PO SCH (08:30)
[2017-11-23] MEDS: Carbidopa/Levodopa 25-250 mg Tablet PO SCH ×3 (08:31→20:59)
[2017-11-23] MEDS: Magnesium Oxide 400 MG TAB PO SCH (08:31)
[2017-11-23] MEDS: Insulin Glargine 5 UNITS in Pre-Filled Syringe 1 EACH SC SCH (09:38)
[2017-11-23] MEDS ORDERED: Potassium Chloride 20 MEQ TAB PO SCH (11:45)
[2017-11-23] MEDS: Insulin Regular 300 UNITS/3 ML VIAL SC PRN (12:25)
--- NOTE | 2017-11-23 13:55 | PDOC.PN ---
- Subjective Encounter Start Date: 11/23/17 Encounter Start Time: 11:20 Denies complaints. Says she is feeling better today. - Objective Vital Signs & Weight: Vital Signs (12 hours) Temp Pulse Resp BP Pulse Ox Pulse Ox Pulse Ox 11/23/17 12:14 98.7 F 71 16 141/93 H 97 11/23/17 08:39 85 L 92 L 11/23/17 08:06 98.8 F 95 16 178/76 H 92 L 11/23/17 08:00 98.8 F 95 16 91 L 11/23/17 05:09 73 22 H 147/65 H 95 11/23/17 04:46 99.2 F Weight Admit Weight 187 lb 14.4 oz Weight 187 lb 14.4 oz I&O: 11/22/17 11/23/17 11/24/17 06:59 06:59 06:59 Intake Total 700 240 Balance 700 240 Result Diagrams: 11/23/17 04:22 11/23/17 04:22 Additional Labs: Accuchecks 11/23/17 11/23/17 11/22/17 12:14 06:02 20:31 POC Glucose 226 H 158 H 191 H 11/22/17 16:52 POC Glucose 220 H Phys Exam - Physical Examination Constitutional: NAD Confused. Pleasant. Respiratory: no wheezing, no rales, no rhonchi, clear to auscultation bilateral Cardiovascular: RRR, no significant murmur, no rub Gastrointestinal: soft, non-tender, no distention, positive bowel sounds Diffuse edema of UE's. Less in LE's. Deviation from normal: Rosacea of face. Dx/Plan (1) Metabolic encephalopathy Code(s): G93.41 - METABOLIC ENCEPHALOPATHY Status: Acute Comment: Likely secondary to UTI. May be a component of underlying dementia/PD. Appreciate neurology consult. Much improved. (2) UTI due to Klebsiella species Code(s): N39.0 - URINARY TRACT INFECTION, SITE NOT SPECIFIED; B96.1 - KLEBSIELLA PNEUMONIAE THE CAUSE OF DISEASES CLASSD ELSWHR Status: Acute Comment: Sensitive to Rocephin. Given the recurrent nature of her infections and hospitalizations, will be more aggressive with IV abx to ensure resolution. Has multiple allergies that limit abx options going forward. (3) Diabetes mellitus Code(s): E11.9 - TYPE 2 DIABETES MELLITUS WITHOUT COMPLICATIONS Status: Acute Comment: Continue with home meds, accuchecks. Generally below 200. (4) Atrial fibrillation Code(s): I48.91 - UNSPECIFIED ATRIAL FIBRILLATION Status: Acute Comment: On Eliquis. Good rate. Sounds regular now. (5) Hypertension Code(s): I10 - ESSENTIAL (PRIMARY) HYPERTENSION Status: Acute Comment: Stable. Continue Cozaar and Lopressor. (6) Sacral decubitus ulcer, stage II Code(s): L89.152 - PRESSURE ULCER OF SACRAL REGION, STAGE 2 Status: Acute Comment: Wound Care consult. (7) Physical deconditioning Code(s): R53.81 - OTHER MALAISE Status: Acute Comment: PT Consult. (8) Dysphagia Code(s): R13.10 - DYSPHAGIA, UNSPECIFIED Status: Acute Comment: Speech evaluated. On regular diet with pureed solids and thin liquids. (9) Parkinsons disease Code(s): G20 - PARKINSON'S DISEASE Status: Acute Comment: Continue home regimen. Appears to be fairly well controlled. (10) Rosacea, acne Code(s): L71.9 - ROSACEA, UNSPECIFIED Status: Acute Comment: Improved. (11) Fever Code(s): R50.9 - FEVER, UNSPECIFIED Status: Acute Comment: Kristopher low grade fever last night. Will recheck UA and CXR. Will not discharge today. Continue to monitor temp. (12) History of Clostridium difficile infection Code(s): Z86.19 - PERSONAL HISTORY OF OTHER INFECTIOUS AND PARASITIC DISEASES Status: Acute Comment: Recent C diff infection prior to this admission. She has not had diarrhea here. No indication for testing at this point. If fever continues, may be an options. No abdominal symptoms. (13) Anasarca Code(s): R60.1 - GENERALIZED EDEMA Status: Acute Comment: Low albumin levels and immobility through recent illnesses. Has generalized edema, especially in UE's. On Eliquis and thrombus unlikely. Daily mild diuresis. - Plan * Working on placement at a new facility when discharged. Has had several recent admissions for UTI and C diff. Working diligently to ensure she is fully treated prior to discharge.
[2017-11-23] MEDS: cefTRIAXone\\ROCEPHIN 1 GM in Sodium Chloride 0.9% 100 ML IVPB SCH (15:09)
--- NOTE | 2017-11-23 15:31 | RAD ---
CHEST 1 VIEW: HISTORY: Fever. Chest pain. COMPARISON: 11/19/07. FINDINGS: Cardiac silhouette is magnified by projection. Pulmonary vasculature upper limits of normal. Elevat ion of the right hemidiaphragm is stable. Mediastinum is midline with aortic calcification. No loba r consolidation or evidence of pneumothorax. IMPRESSION: 1. Borderline pulmonary vascular congestion. 2. Atherosclerosis. POS: [facility]
[2017-11-23 16:27] LABS: Bilirubin Negative (Negative); Blood, Urine Negative (Negative); Clarity TURBID (Clear); Glucose, Urine (Dipstick) Negative (Negative); Leukocyte Large (Negative); Nitrite Negative (Negative); Protein, Urine (Dipstick) Trace mg/dL (Neg-Trace); Specific Gravity, Urine 1.023 (1.002-1.036); Urobilinogen 0.2 mg/dL (0.2-1.0); pH, Urine 5.5 (5.0-9.0)
[2017-11-23 16:30] LABS: Bacteria/HPF None Seen HPF (None Seen); Squamous Epithelial 0-3 HPF (0-3)
[2017-11-23 16:33] LABS: Yeast-AUWi Flag 447.7 (0-25.0)
[2017-11-23 16:44] LABS: RBC/HPF 0-3 HPF (0-3); Yeast-All Forms 1+ HPF (None Seen)
[2017-11-23 16:45] LABS: Other Casts/LPF None Seen LPF (0-3 Hyaline)
[2017-11-23] MEDS: clonazePAM 0.5 MG TAB PO SCH (20:59)
[2017-11-23] MEDS: Primidone 50 MG TAB PO SCH (20:59)
[2017-11-23] MEDS: Donepezil HCl 5 MG TAB PO SCH (20:59)
[2017-11-23] MEDS: Acetaminophen 325 MG TAB PO PRN (21:07)
[2017-11-24] MEDS: Magnesium Oxide 400 MG TAB PO SCH (08:04)
[2017-11-24] MEDS: Potassium Chloride 20 MEQ TAB PO SCH (08:04)
[2017-11-24] MEDS: Apixaban 5 MG TAB PO SCH ×2 (08:05→21:23)
[2017-11-24] MEDS: Metoprolol Tartrate 50 MG TAB PO SCH (08:05)
[2017-11-24] MEDS: DULoxetine 30 MG CAP PO SCH (08:05)
[2017-11-24] MEDS: Furosemide 20 MG TAB PO SCH (08:05)
[2017-11-24] MEDS: Ascorbic Acid 500 mg Chewable Tablet PO SCH (08:06)
[2017-11-24] MEDS: Carbidopa/Levodopa 25-250 mg Tablet PO SCH ×3 (08:06→21:24)
[2017-11-24] MEDS: Losartan 25 MG TAB PO SCH (08:06)
[2017-11-24] MEDS: Saccharomyces boulardii 250 MG CAP PO SCH ×2 (08:06→21:23)
[2017-11-24] MEDS: Insulin Glargine 5 UNITS in Pre-Filled Syringe 1 EACH SC SCH (08:06)
[2017-11-24 11:12] LABS: Anion Gap 12 mmol/L (10-20); BUN (Urea Nitrogen) 5 mg/dL (9.8-20.1); Calc. Creatinine Clearance 101 mL/min (70-130); Calcium 8.9 mg/dL (7.8-10.44); Carbon Dioxide 27 mmol/L (23-31); Chloride 109 mmol/L (98-107); Estimated GFR-MDRD Greater than 90; Glucose 175 mg/dL (83-110); Magnesium 1.2 mg/dL (1.6-2.6); Phosphorus 4.5 mg/dL (2.3-4.7); Potassium 3.6 mmol/L (3.5-5.1); Sodium 144 mmol/L (136-145)
[2017-11-24] MEDS ORDERED: Furosemide 40 MG/4 ML VIAL SLOW IVP SCH ×2 (14:30→21:00)
--- NOTE | 2017-11-24 15:11 | RAD ---
UPRIGHT PORTABLE CHEST: History: 77-year-old female with history of shortness of breath. Comparison: 11-23-17 FINDINGS: There is some bilateral vascular congestion and small pleural effusions. No confluent pneumonia. IMPRESSION: Bilateral vascular congestion with small pleural effusions. Stable from 11-23-17 study. No significant change. POS: [facility]
--- NOTE | 2017-11-24 15:41 | ULT ---
LEFT UPPER EXTREMITY VENOUS DUPLEX ULTRASOUND INCLUDING COLOR AND SPECTRAL DOPPLER IMAGING: HISTORY: A 77-year-old female with a history of left upper extremity and left arm swelling and edema. FINDINGS: Exam, including visualization of the internal jugular, subclavian, axillary, brachial, radial, and ul mary veins, demonstrates phasic flow with normal compressibility and normal augmentation. Left cephal ic and left basilic veins appear patent. There is some subcutaneous edema. IMPRESSION: 1. No evidence for upper extremity deep venous thrombosis. 2. Superficial subcutaneous edema. POS: [facility]
[2017-11-24] MEDS: cefTRIAXone\\ROCEPHIN 1 GM in Sodium Chloride 0.9% 100 ML IVPB SCH (16:05)
[2017-11-24] MEDS: Insulin Regular 300 UNITS/3 ML VIAL SC PRN (17:03)
[2017-11-24 17:46] LABS: Actual Bicarbonate (HCO3a) 28.6 mEq/L (22-28); Base Excess (BEa) 3.6 mEq/L (-2.0 to +3.0); CO2 Tension 45.2 mmHg (35.0-45.0); O2 Tension (PaO2) 76.5 mmHg (> 70.0); pH, Arterial 7.42 (7.35-7.45)
[2017-11-24 17:47] LABS: Calcium, Ionized 1.18 mmol/L (1.12-1.30); Carboxyhemoglobin (COHb) 0.9 gm% (0.0-3.0); Hemoglobin (Hb) 10.9 g/dL (12.0-16.0); Potassium - ABG Lab 3.36 mmol/L (3.70-5.30); Puncture Site RRA
[2017-11-24] MEDS: clonazePAM 0.5 MG TAB PO SCH (21:23)
[2017-11-24] MEDS: Donepezil HCl 5 MG TAB PO SCH (21:23)
[2017-11-24] MEDS: Primidone 50 MG TAB PO SCH (21:23)
[2017-11-24] MEDS: Acetaminophen 325 MG TAB PO PRN (21:38)
[2017-11-25] MEDS: Potassium Chloride 20 MEQ TAB PO SCH (10:42)
[2017-11-25] MEDS: Apixaban 5 MG TAB PO SCH ×2 (10:42→20:13)
[2017-11-25] MEDS: Insulin Glargine 5 UNITS in Pre-Filled Syringe 1 EACH SC SCH (10:42)
[2017-11-25] MEDS: Ascorbic Acid 500 mg Chewable Tablet PO SCH (10:42)
[2017-11-25] MEDS: Carbidopa/Levodopa 25-250 mg Tablet PO SCH ×3 (10:43→20:13)
[2017-11-25] MEDS: Metoprolol Tartrate 50 MG TAB PO SCH (10:43)
[2017-11-25] MEDS: Furosemide 20 MG TAB PO SCH (10:43)
[2017-11-25] MEDS: Furosemide 40 MG/4 ML VIAL SLOW IVP SCH (10:43)
[2017-11-25] MEDS: Losartan 25 MG TAB PO SCH (10:43)
[2017-11-25] MEDS: DULoxetine 30 MG CAP PO SCH (10:43)
[2017-11-25] MEDS: Magnesium Oxide 400 MG TAB PO SCH (10:43)
[2017-11-25] MEDS: Saccharomyces boulardii 250 MG CAP PO SCH ×2 (10:44→20:13)
--- NOTE | 2017-11-25 14:16 | PDOC.PN ---
- Subjective Encounter Start Date: 11/25/17 Encounter Start Time: 09:30 Subjective: pt up in bed still has pain to her left shoulder - Objective Vital Signs & Weight: Vital Signs (12 hours) Temp Pulse Resp Pulse Ox 11/25/17 08:00 99.2 F 79 18 95 11/25/17 05:46 95 Weight Admit Weight 187 lb 14.4 oz Weight 187 lb 14.4 oz I&O: 11/24/17 11/25/17 11/26/17 06:59 06:59 06:59 Intake Total 600 150 Output Total 2 550 Balance 598 -400 Result Diagrams: 11/23/17 04:22 11/24/17 10:34 Additional Labs: Accuchecks 11/25/17 11/24/17 11/24/17 05:27 20:51 16:31 POC Glucose 132 H 174 H 204 H Phys Exam - Physical Examination Neck: no nodes, no JVD, supple, full ROM mild crackles to bases Cardiovascular: RRR, no significant murmur, no rub, gallop, irregular Gastrointestinal: soft, non-tender, no distention, positive bowel sounds left arm still swollen Dx/Plan (1) Metabolic encephalopathy Code(s): G93.41 - METABOLIC ENCEPHALOPATHY Status: Acute Comment: Likely secondary to UTI. May be a component of underlying dementia/PD. Appreciate neurology consult. Much improved. (2) UTI (urinary tract infection) Status: Acute (3) Anasarca Code(s): R60.1 - GENERALIZED EDEMA Status: Acute Comment: Low albumin levels and immobility through recent illnesses. Has generalized edema, especially in UE's. On Eliquis and thrombus unlikely. Daily mild diuresis. (4) Physical deconditioning Code(s): R53.81 - OTHER MALAISE Status: Acute Comment: PT Consult. - Plan will continue iv abx may change to po veronica -: will continue iv lasix -: will give pt iv mag -: will get xray of left shoulder to rule out any fx * . Review of Systems - Review of Systems Respiratory: negative: Cough, Dry, Shortness of Breath, Hemoptysis, SOB with Excertion, Pleuritic Pain, Sputum, Wheezing Cardiovascular: negative: chest pain, palpitations, orthopnea, paroxysmal nocturnal dyspnea, edema, light headedness, other Gastrointestinal: negative: Nausea, Vomiting, Abdominal Pain, Diarrhea, Constipation, Melena, Hematochezia, Other Genitourinary: negative: Dysuria, Frequency, Incontinence, Hematuria, Retention , Other Musculoskeletal: Shoulder Pain - Medications/Allergies Allergies/Adverse Reactions: Allergies Allergy/AdvReac Type Severity Reaction Status Date / Time azithromycin [From Zithromax] Allergy Verified 11/19/17 01:08 cefadroxil [From Duricef] Allergy Verified 11/19/17 01:08 erythromycin base Allergy Verified 11/19/17 01:08 influenza virus vaccine, Allergy Verified 11/19/17 01:08 specific Penicillins Allergy Verified 11/19/17 01:08 Medications: Current Medications Acetaminophen (Tylenol) 650 mg PO Q4H PRN PRN Reason: Headache/Fever or Pain Last Admin: 11/24/17 21:38 Dose: 650 mg Apixaban (Eliquis) 5 mg PO BID [facility] Last Admin: 11/25/17 10:42 Dose: 5 mg Ascorbic Acid (Vitamin C) 500 mg PO DAILY [facility] Last Admin: 11/25/17 10:42 Dose: 500 mg Bisacodyl (Dulcolax) 10 mg PO DAILYPRN PRN PRN Reason: Constipation Bismuth Subsalicylate (Pepto Bismol) 2 tab PO Q1H PRN PRN Reason: Diarrhea/Loose Stools Carbidopa/Levodopa (Sinemet 25-250) 1 tab PO TID [facility] Last Admin: 11/25/17 10:43 Dose: 1 tab Cholecalciferol (Vitamin D3) 1,000 units PO DAILY [facility] Last Admin: 11/25/17 10:43 Dose: 1,000 units Clonazepam (Klonopin) 0.5 mg PO [facility] Last Admin: 11/24/17 21:23 Dose: 0.5 mg Clonazepam (Klonopin) 0.5 mg PO TIDPRN PRN PRN Reason: .ANXIETY Dextrose/Water (Dextrose 50%) 25 gm SLOW IVP PRN PRN PRN Reason: Hypoglycemia Donepezil HCl (Aricept) 5 mg PO HS [facility] Last Admin: 11/24/17 21:23 Dose: 5 mg Duloxetine HCl (Cymbalta) 30 mg PO DAILY [facility] Last Admin: 11/25/17 10:43 Dose: 30 mg Furosemide (Lasix) 20 mg PO DAILY [facility] Last Admin: 11/25/17 10:43 Dose: 20 mg Furosemide (Lasix) 40 mg SLOW IVP DAILY [facility] Last Admin: 11/25/17 10:43 Dose: 40 mg Glucagon (Glucagon) 1 mg IM PRN PRN PRN Reason: Hypoglycemia Guaifenesin/Dextromethorphan (Robitussin Dm) 15 ml PO Q4H PRN PRN Reason: Cough Ceftriaxone Sodium 1 gm/ (Sodium Chloride) 100 mls @ 200 mls/hr IVPB 1600 [facility] Last Admin: 11/24/17 16:05 Dose: 100 mls Dextrose/Water (D5w) 1,000 mls @ 0 mls/hr IV .Q0M PRN PRN Reason: Hypoglycemia Insulin Glargine 5 units/ (Miscellaneous Medication) 0.05 mls @ 0 mls/hr SC QA -[facility] Last Admin: 11/25/17 10:42 Dose: Not Given Insulin Human Regular (Humulin R) 0 units SC .MILD SLIDING SCALE PRN PRN Reason: Mild Correctional Scale Last Admin: 11/24/17 17:03 Dose: 2 unit Losartan Potassium (Cozaar) 25 mg PO DAILY [facility] Last Admin: 11/25/17 10:43 Dose: 25 mg Magnesium Oxide (Magnesium Oxide) 400 mg PO DAILY [facility] Last Admin: 11/25/17 10:43 Dose: 400 mg Metoprolol Tartrate (Lopressor) 50 mg PO DAILY [facility] Last Admin: 11/25/17 10:43 Dose: 50 mg Ondansetron HCl (Zofran Odt) 4 mg PO Q6H PRN PRN Reason: Nausea/Vomiting Ondansetron HCl (Zofran) 4 mg IVP Q6H PRN PRN Reason: Nausea/Vomiting Last Admin: 11/22/17 11:39 Dose: 4 mg Potassium Chloride (K-Dur) 20 meq PO QA-[facility] Last Admin: 11/25/17 10:42 Dose: 20 meq Primidone (Mysoline) 100 mg PO [facility] Last Admin: 11/24/17 21:23 Dose: 100 mg Saccharomyces Boulardii (Florastor) 250 mg PO BID [facility] Last Admin: 11/25/17 10:44 Dose: 250 mg Sodium Chloride (Flush - Normal Saline) 10 ml IVF Q12HR [facility] Last Admin: 11/25/17 10:44 Dose: 10 ml Sodium Chloride (Flush - Normal Saline) 10 ml IVF PRN PRN PRN Reason: Saline Flush Last Admin: 11/23/17 15:14 Dose: 10 ml
--- NOTE | 2017-11-25 14:21 | PDOC.PN ---
- Subjective Encounter Start Date: 11/24/17 Encounter Start Time: 11:30 Subjective: pt up in bed no complains - Objective Vital Signs & Weight: Vital Signs (12 hours) Temp Pulse Resp Pulse Ox 11/25/17 08:00 99.2 F 79 18 95 11/25/17 05:46 95 Weight Admit Weight 187 lb 14.4 oz Weight 187 lb 14.4 oz I&O: 11/24/17 11/25/17 11/26/17 06:59 06:59 06:59 Intake Total 600 150 Output Total 2 550 Balance 598 -400 Result Diagrams: 11/23/17 04:22 11/24/17 10:34 Additional Labs: Accuchecks 11/25/17 11/24/17 11/24/17 05:27 20:51 16:31 POC Glucose 132 H 174 H 204 H Phys Exam - Physical Examination Neck: no nodes, no JVD, supple, full ROM Respiratory: no wheezing, no rales, no rhonchi, wheezing present, clear to auscultation bilateral Cardiovascular: RRR, no significant murmur, no rub, gallop, irregular Dx/Plan (1) Metabolic encephalopathy Code(s): G93.41 - METABOLIC ENCEPHALOPATHY Status: Acute Comment: Likely secondary to UTI. May be a component of underlying dementia/PD. Appreciate neurology consult. Much improved. (2) UTI (urinary tract infection) Status: Acute (3) Anasarca Code(s): R60.1 - GENERALIZED EDEMA Status: Acute Comment: Low albumin levels and immobility through recent illnesses. Has generalized edema, especially in UE's. On Eliquis and thrombus unlikely. Daily mild diuresis. (4) Physical deconditioning Code(s): R53.81 - OTHER MALAISE Status: Acute Comment: PT Consult. - Plan will continue abx for now -: will give pt lasix now -: will get doppler of left arm -: will get cxr pt appears tachypenic * . Review of Systems - Review of Systems Respiratory: negative: Cough, Dry, Shortness of Breath, Hemoptysis, SOB with Excertion, Pleuritic Pain, Sputum, Wheezing Cardiovascular: negative: chest pain, palpitations, orthopnea, paroxysmal nocturnal dyspnea, edema, light headedness, other Gastrointestinal: negative: Nausea, Vomiting, Abdominal Pain, Diarrhea, Constipation, Melena, Hematochezia, Other Genitourinary: negative: Dysuria, Frequency, Incontinence, Hematuria, Retention , Other Musculoskeletal: Shoulder Pain - Medications/Allergies Allergies/Adverse Reactions: Allergies Allergy/AdvReac Type Severity Reaction Status Date / Time azithromycin [From Zithromax] Allergy Verified 11/19/17 01:08 cefadroxil [From Duricef] Allergy Verified 11/19/17 01:08 erythromycin base Allergy Verified 11/19/17 01:08 influenza virus vaccine, Allergy Verified 11/19/17 01:08 specific Penicillins Allergy Verified 11/19/17 01:08 Medications: Current Medications Acetaminophen (Tylenol) 650 mg PO Q4H PRN PRN Reason: Headache/Fever or Pain Last Admin: 11/24/17 21:38 Dose: 650 mg Apixaban (Eliquis) 5 mg PO BID [facility] Last Admin: 11/25/17 10:42 Dose: 5 mg Ascorbic Acid (Vitamin C) 500 mg PO DAILY [facility] Last Admin: 11/25/17 10:42 Dose: 500 mg Bisacodyl (Dulcolax) 10 mg PO DAILYPRN PRN PRN Reason: Constipation Bismuth Subsalicylate (Pepto Bismol) 2 tab PO Q1H PRN PRN Reason: Diarrhea/Loose Stools Carbidopa/Levodopa (Sinemet 25-250) 1 tab PO TID [facility] Last Admin: 11/25/17 10:43 Dose: 1 tab Cholecalciferol (Vitamin D3) 1,000 units PO DAILY [facility] Last Admin: 11/25/17 10:43 Dose: 1,000 units Clonazepam (Klonopin) 0.5 mg PO [facility] Last Admin: 11/24/17 21:23 Dose: 0.5 mg Clonazepam (Klonopin) 0.5 mg PO TIDPRN PRN PRN Reason: .ANXIETY Dextrose/Water (Dextrose 50%) 25 gm SLOW IVP PRN PRN PRN Reason: Hypoglycemia Donepezil HCl (Aricept) 5 mg PO HS [facility] Last Admin: 11/24/17 21:23 Dose: 5 mg Duloxetine HCl (Cymbalta) 30 mg PO DAILY [facility] Last Admin: 11/25/17 10:43 Dose: 30 mg Furosemide (Lasix) 20 mg PO DAILY [facility] Last Admin: 11/25/17 10:43 Dose: 20 mg Furosemide (Lasix) 40 mg SLOW IVP DAILY [facility] Last Admin: 11/25/17 10:43 Dose: 40 mg Glucagon (Glucagon) 1 mg IM PRN PRN PRN Reason: Hypoglycemia Guaifenesin/Dextromethorphan (Robitussin Dm) 15 ml PO Q4H PRN PRN Reason: Cough Ceftriaxone Sodium 1 gm/ (Sodium Chloride) 100 mls @ 200 mls/hr IVPB 1600 [facility] Last Admin: 11/24/17 16:05 Dose: 100 mls Dextrose/Water (D5w) 1,000 mls @ 0 mls/hr IV .Q0M PRN PRN Reason: Hypoglycemia Insulin Glargine 5 units/ (Miscellaneous Medication) 0.05 mls @ 0 mls/hr SC QA -[facility] Last Admin: 11/25/17 10:42 Dose: Not Given Magnesium Sulfate 2 gm/ Sodium (Chloride) 104 mls @ 100 mls/hr IVPB ONE [facility] Insulin Human Regular (Humulin R) 0 units SC .MILD SLIDING SCALE PRN PRN Reason: Mild Correctional Scale Last Admin: 11/24/17 17:03 Dose: 2 unit Losartan Potassium (Cozaar) 25 mg PO DAILY [facility] Last Admin: 11/25/17 10:43 Dose: 25 mg Magnesium Oxide (Magnesium Oxide) 400 mg PO DAILY [facility] Last Admin: 11/25/17 10:43 Dose: 400 mg Metoprolol Tartrate (Lopressor) 50 mg PO DAILY [facility] Last Admin: 11/25/17 10:43 Dose: 50 mg Ondansetron HCl (Zofran Odt) 4 mg PO Q6H PRN PRN Reason: Nausea/Vomiting Ondansetron HCl (Zofran) 4 mg IVP Q6H PRN PRN Reason: Nausea/Vomiting Last Admin: 11/22/17 11:39 Dose: 4 mg Potassium Chloride (K-Dur) 20 meq PO QA-[facility] Last Admin: 11/25/17 10:42 Dose: 20 meq Primidone (Mysoline) 100 mg PO HS [facility] Last Admin: 11/24/17 21:23 Dose: 100 mg Saccharomyces Boulardii (Florastor) 250 mg PO BID [facility] Last Admin: 11/25/17 10:44 Dose: 250 mg Sodium Chloride (Flush - Normal Saline) 10 ml IVF Q12HR [facility] Last Admin: 11/25/17 10:44 Dose: 10 ml Sodium Chloride (Flush - Normal Saline) 10 ml IVF PRN PRN PRN Reason: Saline Flush Last Admin: 11/23/17 15:14 Dose: 10 ml
[2017-11-25] MEDS ORDERED: Magnesium Sulfate 2 GM in Sodium Chloride 0.9% 100 ML IVPB SCH (14:30)
[2017-11-25] MEDS ORDERED: Magnesium 2 GM/NS 0.9% 100 ML 2 GM in Premix Bag 1 BAG IVPB SCH (14:45)
--- NOTE | 2017-11-25 15:25 | RAD ---
3 VIEWS LEFT SHOULDER: Date: 11/25/17 HISTORY: Pain. COMPARISON: None. FINDINGS: There is evidence of loss of joint space height in the left shoulder. No evidence of fracture or disl ocation. Visualized left ribs are unremarkable. There is diffuse bone demineralization. IMPRESSION: Degenerative changes with suggestion of loss of joint space height. POS: JONY
[2017-11-25] MEDS: cefTRIAXone\\ROCEPHIN 1 GM in Sodium Chloride 0.9% 100 ML IVPB SCH (15:45)
[2017-11-25] MEDS ORDERED: oxyCODONE 5 MG TAB PO PRN (15:56)
[2017-11-25] MEDS: Insulin Regular 300 UNITS/3 ML VIAL SC PRN (17:21)
[2017-11-25] MEDS: clonazePAM 0.5 MG TAB PO SCH (20:13)
[2017-11-25] MEDS: Donepezil HCl 5 MG TAB PO SCH (20:13)
[2017-11-25] MEDS: Primidone 50 MG TAB PO SCH (20:13)
[2017-11-26] MEDS: Ascorbic Acid 500 mg Chewable Tablet PO SCH (07:44)
[2017-11-26] MEDS: Apixaban 5 MG TAB PO SCH ×2 (07:44→20:51)
[2017-11-26] MEDS: Magnesium Oxide 400 MG TAB PO SCH (07:45)
[2017-11-26] MEDS: Losartan 25 MG TAB PO SCH (07:45)
[2017-11-26] MEDS: Saccharomyces boulardii 250 MG CAP PO SCH ×2 (07:45→20:51)
[2017-11-26] MEDS: Potassium Chloride 20 MEQ TAB PO SCH (07:45)
[2017-11-26] MEDS: DULoxetine 30 MG CAP PO SCH (07:45)
[2017-11-26] MEDS: Metoprolol Tartrate 50 MG TAB PO SCH (07:45)
[2017-11-26] MEDS: Furosemide 20 MG TAB PO SCH (07:46)
[2017-11-26] MEDS: Insulin Glargine 5 UNITS in Pre-Filled Syringe 1 EACH SC SCH (07:46)
[2017-11-26] MEDS: Carbidopa/Levodopa 25-250 mg Tablet PO SCH ×3 (07:46→20:51)
[2017-11-26] MEDS: Furosemide 40 MG/4 ML VIAL SLOW IVP SCH (07:47)
[2017-11-26 08:46] LABS: #Basophils 0.1 thou/uL (0.0-0.2); #Eosinphils 0.2 thou/uL (0.0-0.7); #Lymphocytes 1.8 thou/uL (1.20-3.40); #Monocytes 0.6 thou/uL (0.11-0.59); #Neutrophils 5.1 thou/uL (1.40-6.50); %Eosinophils 3.2 % (0.0-10.0); %Lymphocytes 22.9 % (21.0-51.0); %Monocytes 7.8 % (0.0-10.0); %Neutrophils 65.2 % (42.0-75.0); Hemoglobin 9.9 g/dL (12.0-16.0); Mean Corpuscular HGB CONC 33.2 g/dL (32.0-36.0); Mean Corpuscular Hemoglobin 28.6 pg (27.0-31.0); Mean Corpuscular Volume 86.3 fL (78.0-98.0); Mean Platelet Volume 7.2 fL (7.4-10.4); Platelet Count 297 thou/uL (130-400); RBC Distribution Width 14.8 % (11.5-14.5); Red Blood Cell (RBC) Count 3.47 mill/uL (4.20-5.40); White Blood Cell (WBC) Count 7.8 thou/uL (4.8-10.8)
[2017-11-26 09:08] LABS: Anion Gap 16 mmol/L (10-20); BUN (Urea Nitrogen) 5 mg/dL (9.8-20.1); Calc. Creatinine Clearance 99 mL/min (70-130); Calcium 8.8 mg/dL (7.8-10.44); Carbon Dioxide 28 mmol/L (23-31); Chloride 102 mmol/L (98-107); Estimated GFR-MDRD 90; Glucose 231 mg/dL (83-110); Magnesium 1.2 mg/dL (1.6-2.6); Phosphorus 4.1 mg/dL (2.3-4.7); Sodium 143 mmol/L (136-145)
[2017-11-26] MEDS: Acetaminophen 325 MG TAB PO PRN (10:32)
[2017-11-26] MEDS ORDERED: Magnesium 2 GM/NS 0.9% 100 ML 2 GM in Premix Bag 1 BAG IVPB SCH (12:00)
[2017-11-26] MEDS ORDERED: Potassium Chloride 20 MEQ TAB PO SCH (12:00)
[2017-11-26] MEDS ORDERED: Potassium Chloride 10 MEQ in Premix Bag 1 BAG IVPB SCH (12:00)
--- NOTE | 2017-11-26 16:01 | PDOC.PN ---
- Subjective Encounter Start Date: 11/26/17 Encounter Start Time: 10:30 Subjective: pt up in bed more awake - Objective Resuscitation Status: Resuscitation Status DNR:Do Not Resuscitate Vital Signs & Weight: Vital Signs (12 hours) Temp Pulse Pulse Resp BP BP Pulse Ox 11/26/17 15:03 82 20 96 11/26/17 09:25 86 127/78 11/26/17 08:00 95 11/26/17 07:09 99.8 F H 96 18 145/73 H 95 Weight Admit Weight 187 lb 14.4 oz Weight 187 lb 14.4 oz I&O: 11/25/17 11/26/17 11/27/17 06:59 06:59 06:59 Intake Total 150 30 Output Total 550 400 Balance -400 -370 Result Diagrams: 11/26/17 08:31 11/26/17 08:31 Additional Labs: Accuchecks 11/26/17 11/26/17 11/25/17 11:56 04:54 21:23 POC Glucose 321 H 184 H 196 H 11/25/17 16:56 POC Glucose 238 H Phys Exam - Physical Examination Neck: no nodes, no JVD, supple, full ROM Respiratory: no wheezing, no rales, no rhonchi, wheezing present, clear to auscultation bilateral Cardiovascular: RRR, no significant murmur, no rub, gallop, irregular Gastrointestinal: soft, non-tender, no distention, positive bowel sounds Musculoskeletal: edema present left arm Dx/Plan (1) Metabolic encephalopathy Code(s): G93.41 - METABOLIC ENCEPHALOPATHY Status: Acute Comment: Likely secondary to UTI. May be a component of underlying dementia/PD. Appreciate neurology consult. Much improved. (2) UTI (urinary tract infection) Status: Acute (3) Anasarca Code(s): R60.1 - GENERALIZED EDEMA Status: Acute Comment: Low albumin levels and immobility through recent illnesses. Has generalized edema, especially in UE's. On Eliquis and thrombus unlikely. Daily mild diuresis. (4) Physical deconditioning Code(s): R53.81 - OTHER MALAISE Status: Acute Comment: PT Consult. (5) Hypomagnesemia Code(s): E83.42 - HYPOMAGNESEMIA Status: Acute - Plan xray of left shoulder no fx, pt moving her left arm more -: will continue iv lasix -: possible discharge to [place] soon -: family concern about pt not eating much. -: cdiff negative, no more diarrhea * . Review of Systems - Review of Systems Respiratory: negative: Cough, Dry, Shortness of Breath, Hemoptysis, SOB with Excertion, Pleuritic Pain, Sputum, Wheezing Cardiovascular: negative: chest pain, palpitations, orthopnea, paroxysmal nocturnal dyspnea, edema, light headedness, other Gastrointestinal: negative: Nausea, Vomiting, Abdominal Pain, Diarrhea, Constipation, Melena, Hematochezia, Other - Medications/Allergies Allergies/Adverse Reactions: Allergies Allergy/AdvReac Type Severity Reaction Status Date / Time azithromycin [From Zithromax] Allergy Verified 11/19/17 01:08 cefadroxil [From Duricef] Allergy Verified 11/19/17 01:08 erythromycin base Allergy Verified 11/19/17 01:08 influenza virus vaccine, Allergy Verified 11/19/17 01:08 specific Penicillins Allergy Verified 11/19/17 01:08 Medications: Current Medications Acetaminophen (Tylenol) 650 mg PO Q4H PRN PRN Reason: Headache/Fever or Pain Last Admin: 11/26/17 10:32 Dose: 650 mg Albuterol/Ipratropium (Duoneb) 3 ml NEB [id number] [facility] Last Admin: 11/26/17 15:03 Dose: 3 ml Apixaban (Eliquis) 5 mg PO BID [facility] Last Admin: 11/26/17 07:44 Dose: 5 mg Ascorbic Acid (Vitamin C) 500 mg PO DAILY [facility] Last Admin: 11/26/17 07:44 Dose: 500 mg Bisacodyl (Dulcolax) 10 mg PO DAILYPRN PRN PRN Reason: Constipation Bismuth Subsalicylate (Pepto Bismol) 2 tab PO Q1H PRN PRN Reason: Diarrhea/Loose Stools Carbidopa/Levodopa (Sinemet 25-250) 1 tab PO TID [facility] Last Admin: 11/26/17 07:46 Dose: 1 tab Cholecalciferol (Vitamin D3) 1,000 units PO DAILY [facility] Last Admin: 11/26/17 07:45 Dose: 1,000 units Clonazepam (Klonopin) 0.5 mg PO HS [facility] Last Admin: 11/25/17 20:13 Dose: Not Given Clonazepam (Klonopin) 0.5 mg PO TIDPRN PRN PRN Reason: .ANXIETY Dextrose/Water (Dextrose 50%) 25 gm SLOW IVP PRN PRN PRN Reason: Hypoglycemia Donepezil HCl (Aricept) 5 mg PO HS [facility] Last Admin: 11/25/17 20:13 Dose: Not Given Duloxetine HCl (Cymbalta) 30 mg PO DAILY [facility] Last Admin: 11/26/17 07:45 Dose: 30 mg Furosemide (Lasix) 40 mg SLOW IVP DAILY [facility] Last Admin: 11/26/17 07:47 Dose: 40 mg Furosemide (Lasix) 40 mg SLOW IVP 1700 [facility] Stop: 11/26/17 19:00 Glucagon (Glucagon) 1 mg IM PRN PRN PRN Reason: Hypoglycemia Guaifenesin/Dextromethorphan (Robitussin Dm) 15 ml PO Q4H PRN PRN Reason: Cough Ceftriaxone Sodium 1 gm/ (Sodium Chloride) 100 mls @ 200 mls/hr IVPB 1600 [facility] Last Admin: 11/25/17 15:45 Dose: 100 mls Dextrose/Water (D5w) 1,000 mls @ 0 mls/hr IV .Q0M PRN PRN Reason: Hypoglycemia Insulin Glargine 5 units/ (Miscellaneous Medication) 0.05 mls @ 0 mls/hr SC QAM -[facility] Last Admin: 11/26/17 07:46 Dose: 0.05 mls Insulin Human Regular (Humulin R) 0 units SC .MILD SLIDING SCALE PRN PRN Reason: Mild Correctional Scale Last Admin: 11/25/17 17:21 Dose: 3 unit Losartan Potassium (Cozaar) 25 mg PO DAILY [facility] Last Admin: 11/26/17 07:45 Dose: 25 mg Magnesium Oxide (Magnesium Oxide) 400 mg PO DAILY [facility] Last Admin: 11/26/17 07:45 Dose: 400 mg Metoprolol Tartrate (Lopressor) 50 mg PO DAILY [facility] Last Admin: 11/26/17 07:45 Dose: 50 mg Ondansetron HCl (Zofran Odt) 4 mg PO Q6H PRN PRN Reason: Nausea/Vomiting Ondansetron HCl (Zofran) 4 mg IVP Q6H PRN PRN Reason: Nausea/Vomiting Last Admin: 11/22/17 11:39 Dose: 4 mg Oxycodone HCl (Oxycodone Ir) 5 mg PO Q6H PRN PRN Reason: Pain Potassium Chloride (K-Dur) 20 meq PO QAM-WM [facility] Last Admin: 11/26/17 07:45 Dose: 20 meq Primidone (Mysoline) 100 mg PO HS [facility] Last Admin: 11/25/17 20:13 Dose: Not Given Saccharomyces Boulardii (Florastor) 250 mg PO BID [facility] Last Admin: 11/26/17 07:45 Dose: 250 mg Sodium Chloride (Flush - Normal Saline) 10 ml IVF Q12HR [facility] Last Admin: 11/26/17 07:47 Dose: 10 ml Sodium Chloride (Flush - Normal Saline) 10 ml IVF PRN PRN PRN Reason: Saline Flush Last Admin: 11/23/17 15:14 Dose: 10 ml
[2017-11-26] MEDS: cefTRIAXone\\ROCEPHIN 1 GM in Sodium Chloride 0.9% 100 ML IVPB SCH (16:06)
[2017-11-26] MEDS ORDERED: Furosemide 40 MG/4 ML VIAL SLOW IVP SCH (17:00)
[2017-11-26] MEDS: Insulin Regular 300 UNITS/3 ML VIAL SC PRN (17:01)
[2017-11-26] MEDS: Primidone 50 MG TAB PO SCH (20:51)
[2017-11-26] MEDS: clonazePAM 0.5 MG TAB PO SCH (20:51)
[2017-11-26] MEDS: Donepezil HCl 5 MG TAB PO SCH (20:51)
[2017-11-27] MEDS: Acetaminophen 325 MG TAB PO PRN (00:55)
[2017-11-27 04:53] LABS: Anion Gap 11 mmol/L (10-20); BUN (Urea Nitrogen) 5 mg/dL (9.8-20.1); Calc. Creatinine Clearance 98 mL/min (70-130); Calcium 8.5 mg/dL (7.8-10.44); Carbon Dioxide 34 mmol/L (23-31); Chloride 99 mmol/L (98-107); Estimated GFR-MDRD 88; Glucose 238 mg/dL (83-110); Magnesium 1.3 mg/dL (1.6-2.6); Phosphorus 3.7 mg/dL (2.3-4.7); Potassium 3.1 mmol/L (3.5-5.1); Sodium 141 mmol/L (136-145)
[2017-11-27] MEDS: Insulin Regular 300 UNITS/3 ML VIAL SC PRN ×3 (05:58→17:17)
[2017-11-27] MEDS: Carbidopa/Levodopa 25-250 mg Tablet PO SCH ×3 (09:09→21:19)
[2017-11-27] MEDS: Potassium Chloride 20 MEQ TAB PO SCH ×2 (09:10→17:17)
[2017-11-27] MEDS: Metoprolol Tartrate 50 MG TAB PO SCH (09:10)
[2017-11-27] MEDS: Losartan 25 MG TAB PO SCH (09:10)
[2017-11-27] MEDS: Apixaban 5 MG TAB PO SCH ×2 (09:11→21:19)
[2017-11-27] MEDS: Saccharomyces boulardii 250 MG CAP PO SCH ×2 (09:11→21:19)
[2017-11-27] MEDS: DULoxetine 30 MG CAP PO SCH (09:11)
[2017-11-27] MEDS: Magnesium Oxide 400 MG TAB PO SCH (09:11)
[2017-11-27] MEDS: Ascorbic Acid 500 mg Chewable Tablet PO SCH (09:11)
[2017-11-27] MEDS: Insulin Glargine 5 UNITS in Pre-Filled Syringe 1 EACH SC SCH (09:12)
[2017-11-27] MEDS: Furosemide 40 MG/4 ML VIAL SLOW IVP SCH (09:13)
[2017-11-27] MEDS ORDERED: Magnesium Sulfate 3 GM in Sodium Chloride 0.9% 100 ML IVPB SCH (09:15)
[2017-11-27] MEDS ORDERED: Dronabinol 2.5 MG CAP PO SCH (11:30)
--- NOTE | 2017-11-27 13:43 | RAD ---
LEFT ELBOW 4 VIEWS: Date: 11/27/17 HISTORY: Pain. COMPARISON: None. FINDINGS: No joint effusion. No fracture. No cortical irregularity or periosteal reaction. IMPRESSION: No acute abnormality. POS: JONYH
--- NOTE | 2017-11-27 13:45 | RAD ---
LEFT HAND 3 VIEWS: HISTORY: Left hand pain. FINDINGS/IMPRESSION: There are degenerative changes. No acute fracture or dislocation or bony destruction is identified. POS: ANUJ
--- NOTE | 2017-11-27 13:51 | PDOC.PN ---
- Subjective Encounter Start Date: 11/27/17 Encounter Start Time: 10:15 Subjective: pt appears a bit lethargic but arousable - Objective Resuscitation Status: Resuscitation Status DNR:Do Not Resuscitate Vital Signs & Weight: Vital Signs (12 hours) Temp Pulse Resp BP Pulse Ox 11/27/17 10:47 70 20 85 L 11/27/17 08:00 100.1 F H 103 H 20 141/74 H 97 11/27/17 07:40 94 L 11/27/17 07:39 104 H 20 96 11/27/17 02:39 98 24 H 94 L 11/27/17 02:12 99.5 F Weight Admit Weight 187 lb 14.4 oz Weight 187 lb 14.4 oz I&O: 11/26/17 11/27/17 11/28/17 06:59 06:59 06:59 Intake Total 30 100 Output Total 400 200 Balance -370 -100 Result Diagrams: 11/26/17 08:31 11/27/17 03:59 Additional Labs: Accuchecks 11/27/17 11/27/17 11/26/17 11:12 04:59 20:40 POC Glucose 227 H 229 H 288 H 11/26/17 16:59 POC Glucose 333 H Phys Exam - Physical Examination Neck: no nodes, no JVD, supple, full ROM Respiratory: no wheezing, no rales, no rhonchi, wheezing present, clear to auscultation bilateral Cardiovascular: RRR, no significant murmur, no rub, gallop, irregular Gastrointestinal: soft, non-tender, no distention, positive bowel sounds Musculoskeletal: edema present Dx/Plan (1) Metabolic encephalopathy Code(s): G93.41 - METABOLIC ENCEPHALOPATHY Status: Acute Comment: Likely secondary to UTI. May be a component of underlying dementia/PD. Appreciate neurology consult. Much improved. (2) UTI (urinary tract infection) Status: Acute (3) Anasarca Code(s): R60.1 - GENERALIZED EDEMA Status: Acute Comment: Low albumin levels and immobility through recent illnesses. Has generalized edema, especially in UE's. On Eliquis and thrombus unlikely. Daily mild diuresis. (4) Physical deconditioning Code(s): R53.81 - OTHER MALAISE Status: Acute Comment: PT Consult. (5) Hypomagnesemia Code(s): E83.42 - HYPOMAGNESEMIA Status: Acute - Plan will replace mag and potassium -: pt is arousable but more lethargic than yestarday -: will stop lasix -: pt not eating much, pt had diarrhea while on glucerna and ensure * . Review of Systems - Review of Systems Respiratory: negative: Cough, Dry, Shortness of Breath, Hemoptysis, SOB with Excertion, Pleuritic Pain, Sputum, Wheezing Cardiovascular: negative: chest pain, palpitations, orthopnea, paroxysmal nocturnal dyspnea, edema, light headedness, other Gastrointestinal: negative: Nausea, Vomiting, Abdominal Pain, Diarrhea, Constipation, Melena, Hematochezia, Other - Medications/Allergies Allergies/Adverse Reactions: Allergies Allergy/AdvReac Type Severity Reaction Status Date / Time azithromycin [From Zithromax] Allergy Verified 11/19/17 01:08 cefadroxil [From Duricef] Allergy Verified 11/19/17 01:08 erythromycin base Allergy Verified 11/19/17 01:08 influenza virus vaccine, Allergy Verified 11/19/17 01:08 specific Penicillins Allergy Verified 11/19/17 01:08 Medications: Current Medications Acetaminophen (Tylenol) 650 mg PO Q4H PRN PRN Reason: Headache/Fever or Pain Last Admin: 11/27/17 00:55 Dose: 650 mg Albuterol/Ipratropium (Duoneb) 3 ml NEB [id number] [facility] Last Admin: 11/27/17 10:47 Dose: 3 ml Apixaban (Eliquis) 5 mg PO BID [facility] Last Admin: 11/27/17 09:11 Dose: 5 mg Ascorbic Acid (Vitamin C) 500 mg PO DAILY [facility] Last Admin: 11/27/17 09:11 Dose: 500 mg Bisacodyl (Dulcolax) 10 mg PO DAILYPRN PRN PRN Reason: Constipation Bismuth Subsalicylate (Pepto Bismol) 2 tab PO Q1H PRN PRN Reason: Diarrhea/Loose Stools Carbidopa/Levodopa (Sinemet 25-250) 1 tab PO TID [facility] Last Admin: 11/27/17 09:09 Dose: 1 tab Cholecalciferol (Vitamin D3) 1,000 units PO DAILY [facility] Last Admin: 11/27/17 09:10 Dose: 1,000 units Clonazepam (Klonopin) 0.5 mg PO HS [facility] Last Admin: 11/26/17 20:51 Dose: 0.5 mg Clonazepam (Klonopin) 0.5 mg PO TIDPRN PRN PRN Reason: .ANXIETY Dextrose/Water (Dextrose 50%) 25 gm SLOW IVP PRN PRN PRN Reason: Hypoglycemia Donepezil HCl (Aricept) 5 mg PO HS [facility] Last Admin: 11/26/17 20:51 Dose: 5 mg Dronabinol (Marinol) 2.5 mg PO BID-AC [facility] Duloxetine HCl (Cymbalta) 30 mg PO DAILY [facility] Last Admin: 11/27/17 09:11 Dose: 30 mg Glucagon (Glucagon) 1 mg IM PRN PRN PRN Reason: Hypoglycemia Guaifenesin/Dextromethorphan (Robitussin Dm) 15 ml PO Q4H PRN PRN Reason: Cough Ceftriaxone Sodium 1 gm/ (Sodium Chloride) 100 mls @ 200 mls/hr IVPB 1600 [facility] Last Admin: 11/26/17 16:06 Dose: 100 mls Dextrose/Water (D5w) 1,000 mls @ 0 mls/hr IV .Q0M PRN PRN Reason: Hypoglycemia Insulin Glargine 5 units/ (Miscellaneous Medication) 0.05 mls @ 0 mls/hr SC QAM -WM [facility] Last Admin: 11/27/17 09:12 Dose: 0.05 mls Magnesium Sulfate 3 gm/ Sodium (Chloride) 106 mls @ 106 mls/hr IVPB NOW [facility] Stop: 11/27/17 14:00 Last Admin: 11/27/17 10:14 Dose: 106 mls Insulin Human Regular (Humulin R) 0 units SC .MILD SLIDING SCALE PRN PRN Reason: Mild Correctional Scale Last Admin: 11/27/17 13:28 Dose: 3 unit Losartan Potassium (Cozaar) 25 mg PO DAILY [facility] Last Admin: 11/27/17 09:10 Dose: 25 mg Magnesium Oxide (Magnesium Oxide) 400 mg PO DAILY [facility] Last Admin: 11/27/17 09:11 Dose: 400 mg Metoprolol Tartrate (Lopressor) 50 mg PO DAILY [facility] Last Admin: 11/27/17 09:10 Dose: 50 mg Ondansetron HCl (Zofran Odt) 4 mg PO Q6H PRN PRN Reason: Nausea/Vomiting Ondansetron HCl (Zofran) 4 mg IVP Q6H PRN PRN Reason: Nausea/Vomiting Last Admin: 11/22/17 11:39 Dose: 4 mg Oxycodone HCl (Oxycodone Ir) 5 mg PO Q6H PRN PRN Reason: Pain Potassium Chloride (K-Dur) 40 meq PO BID-WM [facility] Primidone (Mysoline) 100 mg PO HS [facility] Last Admin: 11/26/17 20:51 Dose: 100 mg Saccharomyces Boulardii (Florastor) 250 mg PO BID [facility] Last Admin: 11/27/17 09:11 Dose: 250 mg Sodium Chloride (Flush - Normal Saline) 10 ml IVF Q12HR [facility] Last Admin: 11/27/17 09:14 Dose: 10 ml Sodium Chloride (Flush - Normal Saline) 10 ml IVF PRN PRN PRN Reason: Saline Flush Last Admin: 11/23/17 15:14 Dose: 10 ml
[2017-11-27] MEDS: cefTRIAXone\\ROCEPHIN 1 GM in Sodium Chloride 0.9% 100 ML IVPB SCH (15:54)
[2017-11-27] MEDS: Dronabinol 2.5 MG CAP PO SCH (17:23)
[2017-11-27] MEDS: clonazePAM 0.5 MG TAB PO SCH (21:19)
[2017-11-27] MEDS: Donepezil HCl 5 MG TAB PO SCH (21:19)
[2017-11-27] MEDS: Primidone 50 MG TAB PO SCH (21:19)
[2017-11-28] MEDS: Insulin Regular 300 UNITS/3 ML VIAL SC PRN ×3 (06:40→18:28)
[2017-11-28] MEDS: Carbidopa/Levodopa 25-250 mg Tablet PO SCH ×3 (08:59→20:45)
[2017-11-28] MEDS: Acetaminophen 325 MG TAB PO PRN (08:59)
[2017-11-28] MEDS: Saccharomyces boulardii 250 MG CAP PO SCH ×2 (08:59→20:45)
[2017-11-28] MEDS: Losartan 25 MG TAB PO SCH (08:59)
[2017-11-28] MEDS: Magnesium Oxide 400 MG TAB PO SCH (08:59)
[2017-11-28] MEDS: Apixaban 5 MG TAB PO SCH ×2 (08:59→20:45)
[2017-11-28] MEDS: Ascorbic Acid 500 mg Chewable Tablet PO SCH (08:59)
[2017-11-28] MEDS: Potassium Chloride 20 MEQ TAB PO SCH ×2 (08:59→18:15)
[2017-11-28] MEDS: Insulin Glargine 5 UNITS in Pre-Filled Syringe 1 EACH SC SCH (09:00)
[2017-11-28] MEDS: Metoprolol Tartrate 50 MG TAB PO SCH (09:00)
[2017-11-28] MEDS: DULoxetine 30 MG CAP PO SCH (09:06)
[2017-11-28] MEDS: Dronabinol 2.5 MG CAP PO SCH ×2 (10:23→18:15)
[2017-11-28] MEDS ORDERED: Sodium Chloride 0.9% 500 ML IV SCH ×2 (12:00→13:00)
[2017-11-28 13:02] LABS: #Basophils 0.1 thou/uL (0.0-0.2); #Eosinphils 0.2 thou/uL (0.0-0.7); #Monocytes 0.9 thou/uL (0.11-0.59); #Neutrophils 6.3 thou/uL (1.40-6.50); %Basophils 0.6 % (0.0-1.0); %Eosinophils 1.8 % (0.0-10.0); %Monocytes 9.4 % (0.0-10.0); %Neutrophils 67.2 % (42.0-75.0); Hemoglobin 9.8 g/dL (12.0-16.0); Mean Corpuscular HGB CONC 31.9 g/dL (32.0-36.0); Mean Corpuscular Hemoglobin 28.1 pg (27.0-31.0); Mean Corpuscular Volume 87.9 fL (78.0-98.0); Mean Platelet Volume 7.3 fL (7.4-10.4); Platelet Count 327 thou/uL (130-400); RBC Distribution Width 15.2 % (11.5-14.5); Red Blood Cell (RBC) Count 3.51 mill/uL (4.20-5.40); White Blood Cell (WBC) Count 9.3 thou/uL (4.8-10.8)
[2017-11-28 13:15] LABS: Anion Gap 13 mmol/L (10-20); BUN (Urea Nitrogen) 9 mg/dL (9.8-20.1); Calc. Creatinine Clearance 75 mL/min (70-130); Calcium 8.8 mg/dL (7.8-10.44); Carbon Dioxide 30 mmol/L (23-31); Chloride 98 mmol/L (98-107); Estimated GFR-MDRD 66; Glucose 414 mg/dL (83-110); Magnesium 1.6 mg/dL (1.6-2.6); Potassium 4.4 mmol/L (3.5-5.1); Sodium 137 mmol/L (136-145)
--- NOTE | 2017-11-28 14:03 | RAD ---
SINGLE VIEW CHEST: Date: 11/28/17 COMPARISON: 11/24/17. HISTORY: Fever. FINDINGS: Single view of the chest shows normal sized cardiomediastinal silhouette. There is an area of air spa ce opacity projecting over the right lower lobe. A small right pleural effusion is seen. There may al so be a small left pleural effusion. IMPRESSION: 1. Right lower lobe opacity is new and may represent an infiltrate rather than a mass. 2. Bilateral pleural effusions. POS: [facility]
[2017-11-28] MEDS ORDERED: Vancomycin HCl 1 GM in Premix Bag 1 BAG IVPB SCH (14:30)
[2017-11-28] MEDS: Piperacillin/Tazobactam 3.375 GM in Sodium Chloride 0.9% 100 ML IVPB SCH ×2 (15:05→20:47)
--- NOTE | 2017-11-28 15:22 | PDOC.PN ---
- Subjective Encounter Start Date: 11/28/17 Encounter Start Time: 11:30 Subjective: pt up in bed awake son at bedside -: pt is still not as awake as she was couple days ago - Objective Resuscitation Status: Resuscitation Status DNR:Do Not Resuscitate Vital Signs & Weight: Vital Signs (12 hours) Temp Pulse Resp BP Pulse Ox 11/28/17 11:31 98.4 F 79 20 124/61 97 11/28/17 10:25 80 12 11/28/17 08:00 93 L 11/28/17 07:54 100.9 F H 109 H 18 126/62 93 L 11/28/17 06:45 90 12 Weight Admit Weight 187 lb 14.4 oz Weight 187 lb 14.4 oz I&O: 11/27/17 11/28/17 11/29/17 06:59 06:59 06:59 Intake Total 100 680 Output Total 200 425 Balance -100 255 Result Diagrams: 11/28/17 12:45 11/28/17 12:45 Additional Labs: Accuchecks 11/28/17 11/28/17 11/27/17 11:13 04:50 20:33 POC Glucose 316 H 219 H 251 H 11/27/17 17:02 POC Glucose 266 H Phys Exam - Physical Examination Neck: no nodes, no JVD, supple, full ROM Respiratory: no wheezing, no rales, no rhonchi, wheezing present, clear to auscultation bilateral Cardiovascular: RRR, no significant murmur, no rub, gallop, irregular Gastrointestinal: soft, non-tender, no distention, positive bowel sounds Musculoskeletal: edema present left hand Neurological: non-focal, normal sensation, moves all 4 limbs Deviation from normal: awake but appears drowsy Dx/Plan (1) Metabolic encephalopathy Code(s): G93.41 - METABOLIC ENCEPHALOPATHY Status: Acute Comment: Likely secondary to UTI. May be a component of underlying dementia/PD. Appreciate neurology consult. Much improved. (2) UTI (urinary tract infection) Status: Acute (3) Anasarca Code(s): R60.1 - GENERALIZED EDEMA Status: Acute Comment: Low albumin levels and immobility through recent illnesses. Has generalized edema, especially in UE's. On Eliquis and thrombus unlikely. Daily mild diuresis. (4) Aspiration pneumonia Code(s): J69.0 - PNEUMONITIS DUE TO INHALATION OF FOOD AND VOMIT Status: Acute (5) Physical deconditioning Code(s): R53.81 - OTHER MALAISE Status: Acute Comment: PT Consult. (6) Hypomagnesemia Code(s): E83.42 - HYPOMAGNESEMIA Status: Acute (7) Malnutrition of moderate degree Code(s): E44.0 - MODERATE PROTEIN-CALORIE MALNUTRITION Status: Acute - Plan pt's mentation is worse for the past two days cxr and ua ordered -: indicated new right lower lung infiltrate will start pt on zosyn and give -: one dose of vanco. speech to reevaluate for possible aspiration -: will ask speech to reevaluate her. May need tube feeding -: pt appears dehydrated will give her 500ml fluids * . pt is overall very ill. I have spoken to son and daughter in regards to her overall health problems. I have added marinol for appetite stimulation. She has been having swelling in her left arm, xray of shoulder, elbow and wrist of left hand is normal. Venous doppler negative. Encouraged to elevate her left hand above her heart. Review of Systems - Review of Systems Other: unable to perform - Medications/Allergies Allergies/Adverse Reactions: Allergies Allergy/AdvReac Type Severity Reaction Status Date / Time azithromycin [From Zithromax] Allergy Verified 11/19/17 01:08 cefadroxil [From Duricef] Allergy Verified 11/19/17 01:08 erythromycin base Allergy Verified 11/19/17 01:08 influenza virus vaccine, Allergy Verified 11/19/17 01:08 specific Penicillins Allergy Verified 11/19/17 01:08 Medications: Current Medications Acetaminophen (Tylenol) 650 mg PO Q4H PRN PRN Reason: Headache/Fever or Pain Last Admin: 11/28/17 08:59 Dose: 650 mg Albuterol/Ipratropium (Duoneb) 3 ml NEB [id number] [facility] Last Admin: 11/28/17 10:25 Dose: 3 ml Apixaban (Eliquis) 5 mg PO BID [facility] Last Admin: 11/28/17 08:59 Dose: 5 mg Ascorbic Acid (Vitamin C) 500 mg PO DAILY [facility] Last Admin: 11/28/17 08:59 Dose: 500 mg Bisacodyl (Dulcolax) 10 mg PO DAILYPRN PRN PRN Reason: Constipation Bismuth Subsalicylate (Pepto Bismol) 2 tab PO Q1H PRN PRN Reason: Diarrhea/Loose Stools Carbidopa/Levodopa (Sinemet 25-250) 1 tab PO TID [facility] Last Admin: 11/28/17 15:06 Dose: 1 tab Cholecalciferol (Vitamin D3) 1,000 units PO DAILY [facility] Last Admin: 11/28/17 08:59 Dose: 1,000 units Clonazepam (Klonopin) 0.5 mg PO [facility] Last Admin: 11/27/17 21:19 Dose: 0.5 mg Clonazepam (Klonopin) 0.5 mg PO TIDPRN PRN PRN Reason: .ANXIETY Dextrose/Water (Dextrose 50%) 25 gm SLOW IVP PRN PRN PRN Reason: Hypoglycemia Donepezil HCl (Aricept) 5 mg PO [facility] Last Admin: 11/27/17 21:19 Dose: 5 mg Dronabinol (Marinol) 2.5 mg PO BID-AC [facility] Last Admin: 11/28/17 10:23 Dose: 2.5 mg Duloxetine HCl (Cymbalta) 30 mg PO DAILY [facility] Last Admin: 11/28/17 09:06 Dose: 30 mg Glucagon (Glucagon) 1 mg IM PRN PRN PRN Reason: Hypoglycemia Guaifenesin/Dextromethorphan (Robitussin Dm) 15 ml PO Q4H PRN PRN Reason: Cough Dextrose/Water (D5w) 1,000 mls @ 0 mls/hr IV .Q0M PRN PRN Reason: Hypoglycemia Insulin Glargine 10 units/ (Miscellaneous Medication) 0.1 mls @ 0 mls/hr SC QAM [facility] Sodium Chloride (Normal Saline 0.9%) 500 mls @ 50 mls/hr IV .Q10H [facility] Stop: 11/28/17 21:59 Last Admin: 11/28/17 12:57 Dose: 500 mls Piperacillin Sod/Tazobactam (Sod 3.375 gm/ Sodium Chloride) 100 mls @ 200 mls/ hr IVPB Q6H [facility] Last Admin: 11/28/17 15:05 Dose: 100 mls Vancomycin HCl 1 gm/ Device 200 mls @ 200 mls/hr IVPB NOW [facility] Stop: 11/28/17 17:00 Insulin Human Regular (Humulin R) 0 units SC .MODERATE SLIDING SC PRN; Protocol PRN Reason: MODERATE SLIDING SCALE Last Admin: 11/28/17 12:52 Dose: 8 unit Losartan Potassium (Cozaar) 25 mg PO DAILY [facility] Last Admin: 11/28/17 08:59 Dose: 25 mg Magnesium Oxide (Magnesium Oxide) 400 mg PO DAILY [facility] Last Admin: 11/28/17 08:59 Dose: 400 mg Metoprolol Tartrate (Lopressor) 50 mg PO DAILY [facility] Last Admin: 11/28/17 09:00 Dose: 50 mg Nystatin (Mycostatin Powder) 0 gm TOP PRN PRN PRN Reason: MASD Ondansetron HCl (Zofran Odt) 4 mg PO Q6H PRN PRN Reason: Nausea/Vomiting Ondansetron HCl (Zofran) 4 mg IVP Q6H PRN PRN Reason: Nausea/Vomiting Last Admin: 11/22/17 11:39 Dose: 4 mg Oxycodone HCl (Oxycodone Ir) 5 mg PO Q6H PRN PRN Reason: Pain Potassium Chloride (K-Dur) 40 meq PO BID-WM [facility] Last Admin: 11/28/17 08:59 Dose: 40 meq Primidone (Mysoline) 100 mg PO HS [facility] Last Admin: 11/27/17 21:19 Dose: 100 mg Saccharomyces Boulardii (Florastor) 250 mg PO BID [facility] Last Admin: 11/28/17 08:59 Dose: 250 mg Sodium Chloride (Flush - Normal Saline) 10 ml IVF Q12HR [facility] Last Admin: 11/28/17 09:00 Dose: 10 ml Sodium Chloride (Flush - Normal Saline) 10 ml IVF PRN PRN PRN Reason: Saline Flush Last Admin: 11/23/17 15:14 Dose: 10 ml
[2017-11-28 16:00] LABS: Bilirubin Small (Negative); Blood, Urine Moderate (Negative); Clarity TURBID (Clear); Glucose, Urine (Dipstick) Negative (Negative); Leukocyte Large (Negative); Nitrite Negative (Negative); Protein, Urine (Dipstick) 100 mg/dL (Neg-Trace); Specific Gravity, Urine 1.023 (1.002-1.036); Urobilinogen 0.2 mg/dL (0.2-1.0)
[2017-11-28 16:06] LABS: Pathc Cast-AUWi Flag 151.17 (0-2.49)
[2017-11-28 16:15] LABS: Bacteria/HPF 2+ HPF (None Seen); Hyaline Casts/LPF NONE SEEN LPF (0-3 Hyaline); Manual Microscopic Reviewed? No Path Casts Seen; Yeast-All Forms 2+ HPF (None Seen)
[2017-11-28] MEDS ORDERED: Famotidine 20 MG TAB PO SCH (16:15)
[2017-11-28] MEDS: Primidone 50 MG TAB PO SCH (20:45)
[2017-11-28] MEDS: clonazePAM 0.5 MG TAB PO SCH (20:45)
[2017-11-28] MEDS: Donepezil HCl 5 MG TAB PO SCH (20:45)
[2017-11-29] MEDS: Piperacillin/Tazobactam 3.375 GM in Sodium Chloride 0.9% 100 ML IVPB SCH ×4 (03:58→21:46)
[2017-11-29 04:43] LABS: Hemoglobin 9.5 g/dL (12.0-16.0); Platelet Count 299 thou/uL (130-400)
[2017-11-29 05:04] LABS: Anion Gap 12 mmol/L (10-20); BUN (Urea Nitrogen) 11 mg/dL (9.8-20.1); Calc. Creatinine Clearance 75 mL/min (70-130); Carbon Dioxide 31 mmol/L (23-31); Chloride 101 mmol/L (98-107); Estimated GFR-MDRD 66; Glucose 284 mg/dL (83-110); Magnesium 1.4 mg/dL (1.6-2.6); Phosphorus 3.4 mg/dL (2.3-4.7); Potassium 4.3 mmol/L (3.5-5.1); Sodium 140 mmol/L (136-145)
[2017-11-29] MEDS: Dronabinol 2.5 MG CAP PO SCH ×2 (08:45→16:42)
[2017-11-29] MEDS: Potassium Chloride 20 MEQ TAB PO SCH ×3 (08:45→16:42)
[2017-11-29] MEDS: Ascorbic Acid 500 mg Chewable Tablet PO SCH (08:45)
[2017-11-29] MEDS: Magnesium Oxide 400 MG TAB PO SCH (08:45)
[2017-11-29] MEDS: Saccharomyces boulardii 250 MG CAP PO SCH ×3 (08:48→21:46)
[2017-11-29] MEDS: Carbidopa/Levodopa 25-250 mg Tablet PO SCH ×4 (08:48→21:46)
[2017-11-29] MEDS: DULoxetine 30 MG CAP PO SCH (08:48)
[2017-11-29] MEDS: Metoprolol Tartrate 50 MG TAB PO SCH (08:58)
[2017-11-29] MEDS: Apixaban 5 MG TAB PO SCH ×3 (08:58→21:46)
[2017-11-29] MEDS: Losartan 25 MG TAB PO SCH (08:58)
[2017-11-29] MEDS: Famotidine 20 MG TAB PO SCH ×2 (08:58→21:47)
[2017-11-29] MEDS: Insulin Glargine 10 UNITS in Pre-Filled Syringe 1 EACH SC SCH (08:59)
[2017-11-29] MEDS: Acetaminophen 325 MG TAB PO PRN (09:06)
[2017-11-29] MEDS: Vancomycin HCl 1.25 GM in Sodium Chloride 0.9% 250 ML 250 ML IVPB SCH ×2 (10:38→23:21)
[2017-11-29] MEDS: Insulin Regular 300 UNITS/3 ML VIAL SC PRN ×2 (12:35→16:44)
--- NOTE | 2017-11-29 14:49 | PDOC.PN ---
- Subjective Encounter Start Date: 11/29/17 Encounter Start Time: 09:40 Pt seen for followup re: acute metabolic encephalopathy. Pt keeping eyes closed and not answering questions, unable to complete ROS. - Objective Resuscitation Status: Resuscitation Status DNR:Do Not Resuscitate MAR Reviewed: Yes Vital Signs & Weight: Vital Signs (12 hours) Temp Pulse Resp BP Pulse Ox 11/29/17 11:50 99.3 F 75 24 H 97/54 L 96 11/29/17 10:38 99 16 97 11/29/17 08:00 99.4 F 99 16 131/80 97 11/29/17 06:53 88 16 96 Weight Admit Weight 187 lb 14.4 oz Weight 187 lb 14.4 oz I&O: 11/28/17 11/29/17 11/30/17 06:59 06:59 06:59 Intake Total 680 646 Output Total 425 90 Balance 255 556 Result Diagrams: 11/29/17 03:51 11/29/17 03:51 Additional Labs: Accuchecks 11/29/17 11/29/17 11/28/17 11:58 04:47 20:27 POC Glucose 283 H 266 H 328 H Labs reviewed by me Phys Exam - Physical Examination Obese HEENT: moist MMs Neck: supple R basal crackles Cardiovascular: RRR Gastrointestinal: soft Neurological: moves all 4 limbs Deviation from normal: Unable to assess Dx/Plan (1) Metabolic encephalopathy Code(s): G93.41 - METABOLIC ENCEPHALOPATHY Status: Acute Comment: Infectious vs metabolic. Appreciate neurology input. (2) Aspiration pneumonia Code(s): J69.0 - PNEUMONITIS DUE TO INHALATION OF FOOD AND VOMIT Status: Acute Comment: continue IV Zosyn and vancomycin, follow blood cultures. Await ST recommendations. (3) Hypertension Code(s): I10 - ESSENTIAL (PRIMARY) HYPERTENSION Status: Chronic Comment: controlled (4) Sacral decubitus ulcer, stage II Code(s): L89.152 - PRESSURE ULCER OF SACRAL REGION, STAGE 2 Status: Chronic (5) UTI due to Klebsiella species Code(s): N39.0 - URINARY TRACT INFECTION, SITE NOT SPECIFIED; B96.1 - KLEBSIELLA PNEUMONIAE THE CAUSE OF DISEASES CLASSD ELSWHR Status: Resolved - Plan * . Review of Systems - Medications/Allergies Allergies/Adverse Reactions: Allergies Allergy/AdvReac Type Severity Reaction Status Date / Time azithromycin [From Zithromax] Allergy Verified 11/19/17 01:08 cefadroxil [From Duricef] Allergy Verified 11/19/17 01:08 erythromycin base Allergy Verified 11/19/17 01:08 influenza virus vaccine, Allergy Verified 11/19/17 01:08 specific Penicillins Allergy Verified 11/19/17 01:08 Medications: Current Medications Acetaminophen (Tylenol) 650 mg PO Q4H PRN PRN Reason: Headache/Fever or Pain Last Admin: 11/29/17 09:06 Dose: 650 mg Albuterol/Ipratropium (Duoneb) 3 ml NEB [id number] [facility] Last Admin: 11/29/17 10:38 Dose: 3 ml Apixaban (Eliquis) 5 mg PO BID [facility] Last Admin: 11/29/17 08:58 Dose: 5 mg Ascorbic Acid (Vitamin C) 500 mg PO DAILY [facility] Last Admin: 11/29/17 08:45 Dose: Not Given Bisacodyl (Dulcolax) 10 mg PO DAILYPRN PRN PRN Reason: Constipation Bismuth Subsalicylate (Pepto Bismol) 2 tab PO Q1H PRN PRN Reason: Diarrhea/Loose Stools Carbidopa/Levodopa (Sinemet 25-250) 1 tab PO TID [facility] Last Admin: 11/29/17 08:48 Dose: Not Given Cholecalciferol (Vitamin D3) 1,000 units PO DAILY [facility] Last Admin: 11/29/17 08:45 Dose: Not Given Clonazepam (Klonopin) 0.5 mg PO HS [facility] Last Admin: 11/28/17 20:45 Dose: 0.5 mg Dextrose/Water (Dextrose 50%) 25 gm SLOW IVP PRN PRN PRN Reason: Hypoglycemia Donepezil HCl (Aricept) 5 mg PO HS [facility] Last Admin: 11/28/17 20:45 Dose: 5 mg Dronabinol (Marinol) 2.5 mg PO BID-AC [facility] Last Admin: 11/29/17 08:45 Dose: Not Given Duloxetine HCl (Cymbalta) 30 mg PO DAILY [facility] Last Admin: 11/29/17 08:48 Dose: Not Given Famotidine (Pepcid) 20 mg PO BID [facility] Last Admin: 11/29/17 08:58 Dose: 20 mg Glucagon (Glucagon) 1 mg IM PRN PRN PRN Reason: Hypoglycemia Guaifenesin/Dextromethorphan (Robitussin Dm) 15 ml PO Q4H PRN PRN Reason: Cough Dextrose/Water (D5w) 1,000 mls @ 0 mls/hr IV .Q0M PRN PRN Reason: Hypoglycemia Insulin Glargine 10 units/ (Miscellaneous Medication) 0.1 mls @ 0 mls/hr SC QAM [facility] Last Admin: 11/29/17 08:59 Dose: 0.1 mls Piperacillin Sod/Tazobactam (Sod 3.375 gm/ Sodium Chloride) 100 mls @ 200 mls/ hr IVPB Q6H [facility] Last Admin: 11/29/17 08:43 Dose: 100 mls Vancomycin HCl 1.25 gm/ Sodium (Chloride) 250 mls @ 200 mls/hr IVPB 0800,1999 [facility] Last Admin: 11/29/17 10:38 Dose: 250 mls Insulin Human Regular (Humulin R) 0 units SC .MODERATE SLIDING SC PRN; Protocol PRN Reason: MODERATE SLIDING SCALE Last Admin: 11/29/17 12:35 Dose: 6 unit Losartan Potassium (Cozaar) 25 mg PO DAILY [facility] Last Admin: 11/29/17 08:58 Dose: 25 mg Magnesium Oxide (Magnesium Oxide) 400 mg PO DAILY [facility] Last Admin: 11/29/17 08:45 Dose: Not Given Metoprolol Tartrate (Lopressor) 50 mg PO DAILY [facility] Last Admin: 11/29/17 08:58 Dose: 50 mg Miscellaneous Medication (Pharmacy To Dose) 1 each IVPB ONE PRN PRN Reason: Pharmacy to dose Stop: 12/19/17 07:49 Nystatin (Mycostatin Powder) 0 gm TOP PRN PRN PRN Reason: MASD Ondansetron HCl (Zofran Odt) 4 mg PO Q6H PRN PRN Reason: Nausea/Vomiting Ondansetron HCl (Zofran) 4 mg IVP Q6H PRN PRN Reason: Nausea/Vomiting Last Admin: 11/22/17 11:39 Dose: 4 mg Oxycodone HCl (Oxycodone Ir) 5 mg PO Q6H PRN PRN Reason: Pain Potassium Chloride (K-Dur) 40 meq PO BID-WM [facility] Last Admin: 11/29/17 09:00 Dose: 40 meq Primidone (Mysoline) 100 mg PO HS [facility] Last Admin: 11/28/17 20:45 Dose: 100 mg Saccharomyces Boulardii (Florastor) 250 mg PO BID [facility] Last Admin: 11/29/17 08:48 Dose: Not Given Sodium Chloride (Flush - Normal Saline) 10 ml IVF Q12HR [facility] Last Admin: 11/29/17 08:48 Dose: 10 ml Sodium Chloride (Flush - Normal Saline) 10 ml IVF PRN PRN PRN Reason: Saline Flush Last Admin: 11/23/17 15:14 Dose: 10 ml
[2017-11-29] MEDS ORDERED: Sodium Chloride 0.9% 250 ML IV SCH (18:15)
[2017-11-29] MEDS: Donepezil HCl 5 MG TAB PO SCH ×2 (21:00→21:46)
[2017-11-29] MEDS: Primidone 50 MG TAB PO SCH (21:46)
[2017-11-29] MEDS: clonazePAM 0.5 MG TAB PO SCH (21:47)
[2017-11-30] MEDS: Piperacillin/Tazobactam 3.375 GM in Sodium Chloride 0.9% 100 ML IVPB SCH ×4 (03:58→20:24)
[2017-11-30] MEDS: Famotidine 20 MG TAB PO SCH ×3 (04:04→20:16)
[2017-11-30 04:09] LABS: #Eosinphils 0.4 thou/uL (0.0-0.7); #Lymphocytes 1.8 thou/uL (1.20-3.40); #Monocytes 0.8 thou/uL (0.11-0.59); #Neutrophils 4.6 thou/uL (1.40-6.50); %Basophils 0.6 % (0.0-1.0); %Eosinophils 4.7 % (0.0-10.0); %Lymphocytes 23.9 % (21.0-51.0); %Monocytes 10.4 % (0.0-10.0); %Neutrophils 60.4 % (42.0-75.0); Mean Corpuscular HGB CONC 31.9 g/dL (32.0-36.0); Mean Corpuscular Hemoglobin 28.6 pg (27.0-31.0); Mean Corpuscular Volume 89.6 fL (78.0-98.0); Mean Platelet Volume 7.7 fL (7.4-10.4); Platelet Count 282 thou/uL (130-400); Red Blood Cell (RBC) Count 3.13 mill/uL (4.20-5.40); White Blood Cell (WBC) Count 7.7 thou/uL (4.8-10.8)
[2017-11-30 04:27] LABS: Anion Gap 14 mmol/L (10-20); BUN (Urea Nitrogen) 12 mg/dL (9.8-20.1); Calc. Creatinine Clearance 75 mL/min (70-130); Calcium 8.9 mg/dL (7.8-10.44); Carbon Dioxide 26 mmol/L (23-31); Chloride 108 mmol/L (98-107); Estimated GFR-MDRD 65; Glucose 212 mg/dL (83-110); Potassium 4.6 mmol/L (3.5-5.1); Sodium 143 mmol/L (136-145)
[2017-11-30] MEDS ORDERED: Vancomycin HCl 1.25 GM in Sodium Chloride 0.9% 250 ML 250 ML IVPB SCH ×2 (11:00→22:45)
[2017-11-30] MEDS: Carbidopa/Levodopa 25-250 mg Tablet PO SCH ×3 (11:30→20:16)
[2017-11-30] MEDS: Losartan 25 MG TAB PO SCH (11:30)
[2017-11-30] MEDS: Metoprolol Tartrate 50 MG TAB PO SCH (11:30)
[2017-11-30] MEDS: DULoxetine 30 MG CAP PO SCH (11:33)
[2017-11-30] MEDS: Ascorbic Acid 500 mg Chewable Tablet PO SCH (12:46)
[2017-11-30] MEDS: Potassium Chloride 20 MEQ TAB PO SCH ×2 (12:46→17:42)
[2017-11-30] MEDS: Dronabinol 2.5 MG CAP PO SCH ×2 (12:46→17:42)
[2017-11-30] MEDS: Apixaban 5 MG TAB PO SCH ×2 (12:46→20:15)
[2017-11-30] MEDS: Saccharomyces boulardii 250 MG CAP PO SCH ×2 (12:47→20:15)
[2017-11-30] MEDS: Magnesium Oxide 400 MG TAB PO SCH (12:47)
[2017-11-30] MEDS: Insulin Glargine 10 UNITS in Pre-Filled Syringe 1 EACH SC SCH (13:01)
--- NOTE | 2017-11-30 17:10 | PDOC.PN ---
- Subjective Encounter Start Date: 11/30/17 Encounter Start Time: 10:00 Pt seen for followup re: metabolic encephalopathy. Answering a few questions. Poor historian, unable to complete ROS. - Objective Resuscitation Status: Resuscitation Status DNR:Do Not Resuscitate MAR Reviewed: Yes Vital Signs & Weight: Vital Signs (12 hours) Temp Pulse Resp BP Pulse Ox 11/30/17 16:00 99.0 F 78 16 129/65 96 11/30/17 15:11 92 20 96 11/30/17 10:25 72 16 94 L 11/30/17 08:00 99.2 F 92 16 151/79 H 96 11/30/17 06:36 74 16 97 Weight Admit Weight 187 lb 14.4 oz Weight 187 lb 14.4 oz I&O: 11/29/17 11/30/17 12/01/17 06:59 06:59 06:59 Intake Total 646 570 Output Total 90 50 Balance 556 520 Result Diagrams: 11/30/17 03:45 11/30/17 03:45 Additional Labs: Accuchecks 11/30/17 11/30/17 11/29/17 11:39 04:54 21:21 POC Glucose 235 H 198 H 228 H 11/29/17 16:43 POC Glucose 261 H Labs reviewed by me Phys Exam - Physical Examination Obesity HEENT: moist MMs Neck: full ROM R basal crackles Cardiovascular: RRR Gastrointestinal: soft Neurological: moves all 4 limbs Psychiatric: normal affect Dx/Plan (1) Metabolic encephalopathy Code(s): G93.41 - METABOLIC ENCEPHALOPATHY Status: Acute Comment: fluctuating mentation, observe for now. Treat pneumonia and followup. (2) Aspiration pneumonia Code(s): J69.0 - PNEUMONITIS DUE TO INHALATION OF FOOD AND VOMIT Status: Acute Comment: continue IV Zosyn and vancomycin, follow blood cultures. Pt able to take some oral diet. NG tube placement unsuccessful. (3) Hypertension Code(s): I10 - ESSENTIAL (PRIMARY) HYPERTENSION Status: Chronic Comment: controlled (4) Sacral decubitus ulcer, stage II Code(s): L89.152 - PRESSURE ULCER OF SACRAL REGION, STAGE 2 Status: Chronic (5) UTI due to Klebsiella species Code(s): N39.0 - URINARY TRACT INFECTION, SITE NOT SPECIFIED; B96.1 - KLEBSIELLA PNEUMONIAE THE CAUSE OF DISEASES CLASSD ELSWHR Status: Resolved - Plan * . Review of Systems - Medications/Allergies Allergies/Adverse Reactions: Allergies Allergy/AdvReac Type Severity Reaction Status Date / Time azithromycin [From Zithromax] Allergy Verified 11/19/17 01:08 cefadroxil [From Duricef] Allergy Verified 11/19/17 01:08 erythromycin base Allergy Verified 11/19/17 01:08 influenza virus vaccine, Allergy Verified 11/19/17 01:08 specific Penicillins Allergy Verified 11/19/17 01:08 Medications: Current Medications Acetaminophen (Tylenol) 650 mg PO Q4H PRN PRN Reason: Headache/Fever or Pain Last Admin: 11/29/17 09:06 Dose: 650 mg Albuterol/Ipratropium (Duoneb) 3 ml NEB [id number] [facility] Last Admin: 11/30/17 15:11 Dose: 3 ml Apixaban (Eliquis) 5 mg PO BID [facility] Last Admin: 11/30/17 12:46 Dose: Not Given Ascorbic Acid (Vitamin C) 500 mg PO DAILY [facility] Last Admin: 11/30/17 12:46 Dose: Not Given Bisacodyl (Dulcolax) 10 mg PO DAILYPRN PRN PRN Reason: Constipation Bismuth Subsalicylate (Pepto Bismol) 2 tab PO Q1H PRN PRN Reason: Diarrhea/Loose Stools Carbidopa/Levodopa (Sinemet 25-250) 1 tab PO TID [facility] Last Admin: 11/30/17 15:21 Dose: Not Given Cholecalciferol (Vitamin D3) 1,000 units PO DAILY [facility] Last Admin: 11/30/17 12:46 Dose: Not Given Dextrose/Water (Dextrose 50%) 25 gm SLOW IVP PRN PRN PRN Reason: Hypoglycemia Donepezil HCl (Aricept) 5 mg PO HS [facility] Last Admin: 11/29/17 21:00 Dose: Not Given Dronabinol (Marinol) 2.5 mg PO BID-AC [facility] Last Admin: 11/30/17 12:46 Dose: Not Given Duloxetine HCl (Cymbalta) 30 mg PO DAILY [facility] Last Admin: 11/30/17 11:33 Dose: 30 mg Famotidine (Pepcid) 20 mg PO BID [facility] Last Admin: 11/30/17 12:47 Dose: Not Given Glucagon (Glucagon) 1 mg IM PRN PRN PRN Reason: Hypoglycemia Guaifenesin/Dextromethorphan (Robitussin Dm) 15 ml PO Q4H PRN PRN Reason: Cough Dextrose/Water (D5w) 1,000 mls @ 0 mls/hr IV .Q0M PRN PRN Reason: Hypoglycemia Insulin Glargine 10 units/ (Miscellaneous Medication) 0.1 mls @ 0 mls/hr SC QAM [facility] Last Admin: 11/30/17 13:01 Dose: 0.1 mls Piperacillin Sod/Tazobactam (Sod 3.375 gm/ Sodium Chloride) 100 mls @ 200 mls/ hr IVPB Q6H [facility] Last Admin: 11/30/17 15:17 Dose: 100 mls Vancomycin HCl 1.25 gm/ Sodium (Chloride) 250 mls @ 200 mls/hr IVPB 1100,2300 [facility] Last Admin: 11/30/17 11:40 Dose: 250 mls Insulin Human Regular (Humulin R) 0 units SC .MODERATE SLIDING SC PRN; Protocol PRN Reason: MODERATE SLIDING SCALE Last Admin: 11/29/17 16:44 Dose: 6 unit Losartan Potassium (Cozaar) 25 mg PO DAILY [facility] Last Admin: 11/30/17 11:30 Dose: 25 mg Magnesium Oxide (Magnesium Oxide) 400 mg PO DAILY [facility] Last Admin: 11/30/17 12:47 Dose: Not Given Metoprolol Tartrate (Lopressor) 50 mg PO DAILY [facility] Last Admin: 11/30/17 11:30 Dose: 50 mg Miscellaneous Medication (Pharmacy To Dose) 1 each IVPB ONE PRN PRN Reason: Pharmacy to dose Stop: 12/19/17 07:49 Nystatin (Mycostatin Powder) 0 gm TOP PRN PRN PRN Reason: MASD Ondansetron HCl (Zofran Odt) 4 mg PO Q6H PRN PRN Reason: Nausea/Vomiting Ondansetron HCl (Zofran) 4 mg IVP Q6H PRN PRN Reason: Nausea/Vomiting Last Admin: 11/22/17 11:39 Dose: 4 mg Oxycodone HCl (Oxycodone Ir) 5 mg PO Q6H PRN PRN Reason: Pain Potassium Chloride (K-Dur) 40 meq PO BID-[facility] Last Admin: 11/30/17 12:46 Dose: Not Given Saccharomyces Boulardii (Florastor) 250 mg PO BID [facility] Last Admin: 11/30/17 12:47 Dose: Not Given Sodium Chloride (Flush - Normal Saline) 10 ml IVF Q12HR [facility] Last Admin: 11/30/17 13:02 Dose: 10 ml Sodium Chloride (Flush - Normal Saline) 10 ml IVF PRN PRN PRN Reason: Saline Flush Last Admin: 11/23/17 15:14 Dose: 10 ml
[2017-11-30] MEDS: Insulin Regular 300 UNITS/3 ML VIAL SC PRN (18:13)
--- NOTE | 2017-11-30 18:24 | PDOC.EVN ---
Event Note - Event Note Event Note: Nov 30, 2017 11:00 AM-11:18 AM Met with patient's daughter Clau. Updated her re: pneumonia. Also discussed re: goals of care. Pt continues to be DNR. Also discussed re: nutrition. Daughter wants to try feeding via nasogastric tube to see if the nutrition will help patient. Will try NG tube feeds.
[2017-11-30] MEDS: Donepezil HCl 5 MG TAB PO SCH (20:16)
[2017-11-30 22:13] LABS: Vancomycin, Trough 28.6 ug/mL
[2017-12-01] MEDS: Piperacillin/Tazobactam 3.375 GM in Sodium Chloride 0.9% 100 ML IVPB SCH ×4 (03:57→21:04)
[2017-12-01 05:15] LABS: Hemoglobin 8.8 g/dL (12.0-16.0); Platelet Count 277 thou/uL (130-400)
[2017-12-01 05:18] LABS: #Eosinphils 0.4 thou/uL (0.0-0.7); #Lymphocytes 1.7 thou/uL (1.20-3.40); #Monocytes 0.6 thou/uL (0.11-0.59); #Neutrophils 3.7 thou/uL (1.40-6.50); %Basophils 0.3 % (0.0-1.0); %Eosinophils 6.7 % (0.0-10.0); %Lymphocytes 26.8 % (21.0-51.0); %Monocytes 9.1 % (0.0-10.0); %Neutrophils 57.1 % (42.0-75.0); Hemoglobin 8.6 g/dL (12.0-16.0); Mean Corpuscular HGB CONC 31.2 g/dL (32.0-36.0); Mean Corpuscular Hemoglobin 27.9 pg (27.0-31.0); Mean Corpuscular Volume 89.3 fL (78.0-98.0); Mean Platelet Volume 8.2 fL (7.4-10.4); Platelet Count 257 thou/uL (130-400); Red Blood Cell (RBC) Count 3.09 mill/uL (4.20-5.40); White Blood Cell (WBC) Count 6.5 thou/uL (4.8-10.8)
[2017-12-01 05:55] LABS: Anion Gap 13 mmol/L (10-20); BUN (Urea Nitrogen) 11 mg/dL (9.8-20.1); Calc. Creatinine Clearance 85 mL/min (70-130); Calcium 8.9 mg/dL (7.8-10.44); Carbon Dioxide 26 mmol/L (23-31); Chloride 109 mmol/L (98-107); Estimated GFR-MDRD 75; Glucose 193 mg/dL (83-110); Potassium 3.8 mmol/L (3.5-5.1); Sodium 144 mmol/L (136-145)
[2017-12-01] MEDS: Ascorbic Acid 500 mg Chewable Tablet PO SCH (09:06)
[2017-12-01] MEDS: DULoxetine 30 MG CAP PO SCH (09:07)
[2017-12-01] MEDS: Famotidine 20 MG TAB PO SCH ×2 (09:07→20:59)
[2017-12-01] MEDS: Metoprolol Tartrate 50 MG TAB PO SCH (09:07)
[2017-12-01] MEDS: Apixaban 5 MG TAB PO SCH ×2 (09:08→20:59)
[2017-12-01] MEDS: Losartan 25 MG TAB PO SCH (09:08)
[2017-12-01] MEDS: Saccharomyces boulardii 250 MG CAP PO SCH ×2 (09:08→20:59)
[2017-12-01] MEDS: Carbidopa/Levodopa 25-250 mg Tablet PO SCH ×3 (09:09→21:04)
[2017-12-01] MEDS: Potassium Chloride 20 MEQ TAB PO SCH ×2 (09:09→16:49)
[2017-12-01] MEDS: Magnesium Oxide 400 MG TAB PO SCH (09:09)
[2017-12-01] MEDS: Insulin Glargine 10 UNITS in Pre-Filled Syringe 1 EACH SC SCH ×2 (09:10→12:30)
[2017-12-01] MEDS: Dronabinol 2.5 MG CAP PO SCH ×2 (10:06→16:49)
--- NOTE | 2017-12-01 11:56 | RAD ---
PORTABLE CHEST: Date: 12/01/17 HISTORY: Respiratory distress. FINDINGS: Heart size appears slightly enlarged. Parenchymal changes and probably some associated pleural change s are seen in the left base, stable as compared to the prior exam. Decrease in size to the nodular op acity in the right base probably represents resolving atelectasis or possibly some resolving fluid in a fissure. IMPRESSION: Improving changes to the nodular area in the right lower lobe which now has more of a linear appearan ce suggestive of atelectasis. The parenchymal and possible pleural changes in the left base appear st able. POS: [facility]
[2017-12-01] MEDS: Vancomycin HCl 750 MG in Sodium Chloride 0.9% 250 ML 250 ML IVPB SCH (12:29)
[2017-12-01] MEDS: Insulin Regular 300 UNITS/3 ML VIAL SC PRN ×2 (17:26→21:39)
--- NOTE | 2017-12-01 17:53 | PDOC.PN ---
- Subjective Encounter Start Date: 12/01/17 Encounter Start Time: 09:00 Pt seen for followup re: metabolic encephalopathy. More alert today, holding conversation. Denies chest pain, shortness of breath, fevers or chills. - Objective Resuscitation Status: Resuscitation Status DNR:Do Not Resuscitate Vital Signs & Weight: Vital Signs (12 hours) Temp Pulse Resp BP Pulse Ox Pulse Ox Pulse Ox 12/01/17 14:08 80 14 12/01/17 11:00 98.7 F 83 20 116/55 L 97 12/01/17 10:41 95 96 12/01/17 10:31 98 12/01/17 10:28 81 14 12/01/17 08:00 97.6 F 81 22 H 147/66 H 98 12/01/17 06:51 82 14 Weight Admit Weight 187 lb 14.4 oz Weight 187 lb 14.4 oz I&O: 11/30/17 12/01/17 12/02/17 06:59 06:59 06:59 Intake Total 570 320 Output Total 50 Balance 520 320 Result Diagrams: 12/01/17 04:39 12/01/17 04:39 Additional Labs: Accuchecks 12/01/17 12/01/17 11/30/17 11:37 04:43 20:11 POC Glucose 297 H 192 H 251 H Phys Exam - Physical Examination Obese HEENT: moist MMs Neck: supple R basal crackles Cardiovascular: RRR Gastrointestinal: soft Neurological: moves all 4 limbs Psychiatric: normal affect Dx/Plan (1) Metabolic encephalopathy Code(s): G93.41 - METABOLIC ENCEPHALOPATHY Status: Acute Comment: Improving , likely due to infection (2) Aspiration pneumonia Code(s): J69.0 - PNEUMONITIS DUE TO INHALATION OF FOOD AND VOMIT Status: Acute Comment: continue IV Zosyn and vancomycin, Preliminary blood cultures negative. (3) Hypertension Code(s): I10 - ESSENTIAL (PRIMARY) HYPERTENSION Status: Chronic Comment: controlled (4) Sacral decubitus ulcer, stage II Code(s): L89.152 - PRESSURE ULCER OF [place]CR[place] REGION, STAGE 2 Status: Chronic (5) UTI due to Klebsiella species Code(s): N39.0 - URINARY TRACT INFECTION, SITE NOT SPECIFIED; B96.1 - KLEBSIELLA PNEUMONIAE THE CAUSE OF DISEASES CLASSD ELSWHR Status: Resolved - Plan * . Discussed with son and , will trial PPN to see if she improves. Review of Systems - Review of Systems Respiratory: negative: Cough, Shortness of Breath, SOB with Excertion, Pleuritic Pain, Wheezing Cardiovascular: negative: chest pain, palpitations, orthopnea, paroxysmal nocturnal dyspnea, edema, light headedness - Medications/Allergies Allergies/Adverse Reactions: Allergies Allergy/AdvReac Type Severity Reaction Status Date / Time azithromycin [From Zithromax] Allergy Verified 11/19/17 01:08 cefadroxil [From Duricef] Allergy Verified 11/19/17 01:08 erythromycin base Allergy Verified 11/19/17 01:08 influenza virus vaccine, Allergy Verified 11/19/17 01:08 specific Penicillins Allergy Verified 11/19/17 01:08 Medications: Current Medications Acetaminophen (Tylenol) 650 mg PO Q4H PRN PRN Reason: Headache/Fever or Pain Last Admin: 11/29/17 09:06 Dose: 650 mg Albuterol/Ipratropium (Duoneb) 3 ml NEB [id number] [facility] Last Admin: 12/01/17 14:08 Dose: 3 ml Apixaban (Eliquis) 5 mg PO BID [facility] Last Admin: 12/01/17 09:08 Dose: 5 mg Ascorbic Acid (Vitamin C) 500 mg PO DAILY [facility] Last Admin: 12/01/17 09:06 Dose: 500 mg Bisacodyl (Dulcolax) 10 mg PO DAILYPRN PRN PRN Reason: Constipation Bismuth Subsalicylate (Pepto Bismol) 2 tab PO Q1H PRN PRN Reason: Diarrhea/Loose Stools Carbidopa/Levodopa (Sinemet 25-250) 1 tab PO TID [facility] Last Admin: 12/01/17 15:52 Dose: 1 tab Cholecalciferol (Vitamin D3) 1,000 units PO DAILY [facility] Last Admin: 12/01/17 09:09 Dose: 1,000 units Dextrose/Water (Dextrose 50%) 25 gm SLOW IVP PRN PRN PRN Reason: Hypoglycemia Donepezil HCl (Aricept) 5 mg PO HS [facility] Last Admin: 11/30/17 20:16 Dose: 5 mg Dronabinol (Marinol) 2.5 mg PO BID-AC [facility] Last Admin: 12/01/17 16:49 Dose: 2.5 mg Duloxetine HCl (Cymbalta) 30 mg PO DAILY [facility] Last Admin: 12/01/17 09:07 Dose: 30 mg Famotidine (Pepcid) 20 mg PO BID [facility] Last Admin: 12/01/17 09:07 Dose: 20 mg Glucagon (Glucagon) 1 mg IM PRN PRN PRN Reason: Hypoglycemia Guaifenesin/Dextromethorphan (Robitussin Dm) 15 ml PO Q4H PRN PRN Reason: Cough Dextrose/Water (D5w) 1,000 mls @ 0 mls/hr IV .Q0M PRN PRN Reason: Hypoglycemia Insulin Glargine 10 units/ (Miscellaneous Medication) 0.1 mls @ 0 mls/hr SC QAM [facility] Last Admin: 12/01/17 12:30 Dose: 0.1 mls Piperacillin Sod/Tazobactam (Sod 3.375 gm/ Sodium Chloride) 100 mls @ 200 mls/ hr IVPB Q6H [facility] Last Admin: 12/01/17 15:52 Dose: 100 mls Vancomycin HCl 750 mg/ Sodium (Chloride) 250 mls @ 250 mls/hr IVPB 1200,2359 [facility] Last Admin: 12/01/17 12:29 Dose: 250 mls Amino Acids/Electrolytes/Dextrose (Clinimix E 4.25/5) 1,000 mls @ 0 mls/hr IV .Q0M [facility] Insulin Human Regular (Humulin R) 0 units SC .MODERATE SLIDING SC PRN; Protocol PRN Reason: MODERATE SLIDING SCALE Last Admin: 12/01/17 17:26 Dose: 10 unit Losartan Potassium (Cozaar) 25 mg PO DAILY [facility] Last Admin: 12/01/17 09:08 Dose: 25 mg Magnesium Oxide (Magnesium Oxide) 400 mg PO DAILY [facility] Last Admin: 12/01/17 09:09 Dose: 400 mg Metoprolol Tartrate (Lopressor) 50 mg PO DAILY [facility] Last Admin: 12/01/17 09:07 Dose: 50 mg Miscellaneous Medication (Pharmacy To Dose) 1 each IVPB ONE PRN PRN Reason: Pharmacy to dose Stop: 12/19/17 07:49 Nystatin (Mycostatin Powder) 0 gm TOP PRN PRN PRN Reason: MASD Ondansetron HCl (Zofran Odt) 4 mg PO Q6H PRN PRN Reason: Nausea/Vomiting Ondansetron HCl (Zofran) 4 mg IVP Q6H PRN PRN Reason: Nausea/Vomiting Last Admin: 11/22/17 11:39 Dose: 4 mg Oxycodone HCl (Oxycodone Ir) 5 mg PO Q6H PRN PRN Reason: Pain Potassium Chloride (K-Dur) 40 meq PO BID-[facility] Last Admin: 12/01/17 16:49 Dose: 40 meq Saccharomyces Boulardii (Florastor) 250 mg PO BID [facility] Last Admin: 12/01/17 09:08 Dose: 250 mg Sodium Chloride (Flush - Normal Saline) 10 ml IVF Q12HR [facility] Last Admin: 12/01/17 09:11 Dose: 10 ml Sodium Chloride (Flush - Normal Saline) 10 ml IVF PRN PRN PRN Reason: Saline Flush Last Admin: 11/23/17 15:14 Dose: 10 ml
[2017-12-01] MEDS: Donepezil HCl 5 MG TAB PO SCH (20:59)
[2017-12-02] MEDS: Vancomycin HCl 750 MG in Sodium Chloride 0.9% 250 ML 250 ML IVPB SCH ×2 (00:26→12:08)
[2017-12-02] MEDS: Piperacillin/Tazobactam 3.375 GM in Sodium Chloride 0.9% 100 ML IVPB SCH ×4 (02:45→20:12)
[2017-12-02] MEDS: D5W-AA 4.25% with LYTES 1,000 ML IV SCH ×2 (03:50→18:02)
[2017-12-02] MEDS: Insulin Regular 300 UNITS/3 ML VIAL SC PRN ×4 (05:09→22:30)
[2017-12-02 07:00] LABS: #Eosinphils 0.3 thou/uL (0.0-0.7); #Lymphocytes 1.6 thou/uL (1.20-3.40); #Monocytes 0.5 thou/uL (0.11-0.59); #Neutrophils 4.3 thou/uL (1.40-6.50); %Basophils 0.4 % (0.0-1.0); %Eosinophils 4.3 % (0.0-10.0); %Lymphocytes 24.2 % (21.0-51.0); %Neutrophils 63.1 % (42.0-75.0); Mean Corpuscular Hemoglobin 27.3 pg (27.0-31.0); Mean Corpuscular Volume 88.1 fL (78.0-98.0); Mean Platelet Volume 7.3 fL (7.4-10.4); Platelet Count 307 thou/uL (130-400); RBC Distribution Width 14.7 % (11.5-14.5); White Blood Cell (WBC) Count 6.8 thou/uL (4.8-10.8)
[2017-12-02 07:20] LABS: Anion Gap 10 mmol/L (10-20); BUN (Urea Nitrogen) 10 mg/dL (9.8-20.1); Calc. Creatinine Clearance 81 mL/min (70-130); Calcium 9.2 mg/dL (7.8-10.44); Carbon Dioxide 25 mmol/L (23-31); Chloride 110 mmol/L (98-107); Estimated GFR-MDRD 72; Glucose 328 mg/dL (83-110); Potassium 4.1 mmol/L (3.5-5.1); Sodium 141 mmol/L (136-145)
[2017-12-02] MEDS: Saccharomyces boulardii 250 MG CAP PO SCH ×2 (08:27→20:13)
[2017-12-02] MEDS: Apixaban 5 MG TAB PO SCH ×2 (08:27→20:12)
[2017-12-02] MEDS: Ascorbic Acid 500 mg Chewable Tablet PO SCH (08:27)
[2017-12-02] MEDS: Dronabinol 2.5 MG CAP PO SCH (08:27)
[2017-12-02] MEDS: Losartan 25 MG TAB PO SCH (08:28)
[2017-12-02] MEDS: Potassium Chloride 20 MEQ TAB PO SCH ×2 (08:28→15:54)
[2017-12-02] MEDS: Famotidine 20 MG TAB PO SCH ×2 (08:28→20:12)
[2017-12-02] MEDS: DULoxetine 30 MG CAP PO SCH (08:28)
[2017-12-02] MEDS: Insulin Glargine 10 UNITS in Pre-Filled Syringe 1 EACH SC SCH (08:29)
[2017-12-02] MEDS: Magnesium Oxide 400 MG TAB PO SCH (08:29)
[2017-12-02] MEDS: Metoprolol Tartrate 50 MG TAB PO SCH (08:29)
[2017-12-02] MEDS: Carbidopa/Levodopa 25-250 mg Tablet PO SCH ×3 (08:30→20:12)
[2017-12-02] MEDS: Acetaminophen 325 MG TAB PO PRN ×2 (08:55→21:28)
[2017-12-02 11:35] LABS: Magnesium 1.2 mg/dL (1.6-2.6)
--- NOTE | 2017-12-02 18:16 | PDOC.PN ---
- Subjective Encounter Start Date: 12/02/17 Encounter Start Time: 10:40 Pt seen for followup re: metabolic encephalopathy. Pt unable to provide history , could not complete ROS. - Objective Resuscitation Status: Resuscitation Status DNR:Do Not Resuscitate MAR Reviewed: Yes Vital Signs & Weight: Vital Signs (12 hours) Temp Pulse Resp BP Pulse Ox 12/02/17 13:55 78 20 98 12/02/17 10:22 90 14 12/02/17 08:00 99.7 F H 97 20 150/67 H 96 12/02/17 06:36 88 14 Weight Admit Weight 187 lb 14.4 oz Weight 187 lb 14.4 oz I&O: 12/01/17 12/02/17 12/03/17 06:59 06:59 06:59 Intake Total 320 2250 Balance 320 2250 Result Diagrams: 12/02/17 06:49 12/02/17 06:49 Additional Labs: Accuchecks 12/02/17 12/02/17 12/02/17 16:31 11:48 04:45 POC Glucose 306 H 398 H 328 H 12/01/17 12/01/17 20:17 17:13 POC Glucose 383 H 406 H Labs reviewed by me Phys Exam - Physical Examination HEENT: moist MMs Neck: supple Respiratory: clear to auscultation bilateral Cardiovascular: RRR Gastrointestinal: positive bowel sounds Neurological: moves all 4 limbs Deviation from normal: Unable to assess Dx/Plan (1) Metabolic encephalopathy Code(s): G93.41 - METABOLIC ENCEPHALOPATHY Status: Acute Comment: Improving , likely a combination of infection as well as medication. Discontinue marinol and observe. (2) Aspiration pneumonia Code(s): J69.0 - PNEUMONITIS DUE TO INHALATION OF FOOD AND VOMIT Status: Acute Comment: continue IV Zosyn and vancomycin (3) Hypertension Code(s): I10 - ESSENTIAL (PRIMARY) HYPERTENSION Status: Chronic Comment: controlled (4) Sacral decubitus ulcer, stage II Code(s): L89.152 - PRESSURE ULCER OF [place]CR[place] REGION, STAGE 2 Status: Chronic (5) UTI due to Klebsiella species Code(s): N39.0 - URINARY TRACT INFECTION, SITE NOT SPECIFIED; B96.1 - KLEBSIELLA PNEUMONIAE THE CAUSE OF DISEASES CLASSD ELSWHR Status: Resolved - Plan plan discussed w/ family, continue antibiotics, PT/OT * . Review of Systems - Medications/Allergies Allergies/Adverse Reactions: Allergies Allergy/AdvReac Type Severity Reaction Status Date / Time azithromycin [From Zithromax] Allergy Verified 11/19/17 01:08 cefadroxil [From Duricef] Allergy Verified 11/19/17 01:08 erythromycin base Allergy Verified 11/19/17 01:08 influenza virus vaccine, Allergy Verified 11/19/17 01:08 specific Penicillins Allergy Verified 11/19/17 01:08 Medications: Current Medications Acetaminophen (Tylenol) 650 mg PO Q4H PRN PRN Reason: Headache/Fever or Pain Last Admin: 12/02/17 08:55 Dose: 650 mg Albuterol/Ipratropium (Duoneb) 3 ml NEB [id number] [facility] Last Admin: 12/02/17 13:55 Dose: 3 ml Apixaban (Eliquis) 5 mg PO BID [facility] Last Admin: 12/02/17 08:27 Dose: 5 mg Ascorbic Acid (Vitamin C) 500 mg PO DAILY [facility] Last Admin: 12/02/17 08:27 Dose: 500 mg Bisacodyl (Dulcolax) 10 mg PO DAILYPRN PRN PRN Reason: Constipation Bismuth Subsalicylate (Pepto Bismol) 2 tab PO Q1H PRN PRN Reason: Diarrhea/Loose Stools Carbidopa/Levodopa (Sinemet 25-250) 1 tab PO TID [facility] Last Admin: 12/02/17 15:54 Dose: 1 tab Cholecalciferol (Vitamin D3) 1,000 units PO DAILY [facility] Last Admin: 12/02/17 08:27 Dose: 1,000 units Dextrose/Water (Dextrose 50%) 25 gm SLOW IVP PRN PRN PRN Reason: Hypoglycemia Donepezil HCl (Aricept) 5 mg PO HS [facility] Last Admin: 12/01/17 20:59 Dose: 5 mg Duloxetine HCl (Cymbalta) 30 mg PO DAILY [facility] Last Admin: 12/02/17 08:28 Dose: 30 mg Famotidine (Pepcid) 20 mg PO BID [facility] Last Admin: 12/02/17 08:28 Dose: 20 mg Glucagon (Glucagon) 1 mg IM PRN PRN PRN Reason: Hypoglycemia Guaifenesin/Dextromethorphan (Robitussin Dm) 15 ml PO Q4H PRN PRN Reason: Cough Dextrose/Water (D5w) 1,000 mls @ 0 mls/hr IV .Q0M PRN PRN Reason: Hypoglycemia Insulin Glargine 10 units/ (Miscellaneous Medication) 0.1 mls @ 0 mls/hr SC QAM [facility] Last Admin: 12/02/17 08:29 Dose: 0.1 mls Piperacillin Sod/Tazobactam (Sod 3.375 gm/ Sodium Chloride) 100 mls @ 200 mls/ hr IVPB Q6H [facility] Last Admin: 12/02/17 15:54 Dose: 100 mls Vancomycin HCl 750 mg/ Sodium (Chloride) 250 mls @ 250 mls/hr IVPB 1200,2359 [facility] Last Admin: 12/02/17 12:08 Dose: 250 mls Amino Acids/Electrolytes/Dextrose (Clinimix E 4.25/5) 1,000 mls @ 0 mls/hr IV .Q0M [facility] Last Admin: 12/02/17 18:02 Dose: 1,000 mls Insulin Human Regular (Humulin R) 0 units SC .MODERATE SLIDING SC PRN; Protocol PRN Reason: MODERATE SLIDING SCALE Last Admin: 12/02/17 17:38 Dose: 8 unit Losartan Potassium (Cozaar) 25 mg PO DAILY [facility] Last Admin: 12/02/17 08:28 Dose: 25 mg Magnesium Oxide (Magnesium Oxide) 400 mg PO DAILY [facility] Last Admin: 12/02/17 08:29 Dose: 400 mg Metoprolol Tartrate (Lopressor) 50 mg PO DAILY [facility] Last Admin: 12/02/17 08:29 Dose: 50 mg Miscellaneous Medication (Pharmacy To Dose) 1 each IVPB ONE PRN PRN Reason: Pharmacy to dose Stop: 12/19/17 07:49 Nystatin (Mycostatin Powder) 0 gm TOP PRN PRN PRN Reason: MASD Ondansetron HCl (Zofran Odt) 4 mg PO Q6H PRN PRN Reason: Nausea/Vomiting Ondansetron HCl (Zofran) 4 mg IVP Q6H PRN PRN Reason: Nausea/Vomiting Last Admin: 11/22/17 11:39 Dose: 4 mg Oxycodone HCl (Oxycodone Ir) 5 mg PO Q6H PRN PRN Reason: Pain Potassium Chloride (K-Dur) 40 meq PO BID-[facility] Last Admin: 12/02/17 15:54 Dose: 40 meq Saccharomyces Boulardii (Florastor) 250 mg PO BID [facility] Last Admin: 12/02/17 08:27 Dose: 250 mg Sodium Chloride (Flush - Normal Saline) 10 ml IVF Q12HR [facility] Last Admin: 12/02/17 08:31 Dose: 10 ml Sodium Chloride (Flush - Normal Saline) 10 ml IVF PRN PRN PRN Reason: Saline Flush Last Admin: 11/23/17 15:14 Dose: 10 ml
[2017-12-02] MEDS ORDERED: Magnesium Sulfate 2 GM in Sodium Chloride 0.9% 100 ML IVPB SCH (19:45)
[2017-12-02] MEDS: Donepezil HCl 5 MG TAB PO SCH (20:12)
[2017-12-02 23:26] LABS: Vancomycin, Trough 11.8 ug/mL
[2017-12-03] MEDS: Vancomycin HCl 750 MG in Sodium Chloride 0.9% 250 ML 250 ML IVPB SCH (00:01)
[2017-12-03] MEDS: Vancomycin HCl 1 GM in Premix Bag 1 BAG IVPB SCH ×2 (01:08→12:15)
[2017-12-03] MEDS: Piperacillin/Tazobactam 3.375 GM in Sodium Chloride 0.9% 100 ML IVPB SCH ×4 (03:03→21:45)
[2017-12-03 04:45] LABS: Hemoglobin 9.6 g/dL (12.0-16.0); Platelet Count 346 thou/uL (130-400)
[2017-12-03 04:50] LABS: Magnesium 1.5 mg/dL (1.6-2.6); Phosphorus 3.2 mg/dL (2.3-4.7)
[2017-12-03] MEDS: Insulin Regular 300 UNITS/3 ML VIAL SC PRN ×4 (06:17→21:56)
[2017-12-03] MEDS: Potassium Chloride 20 MEQ TAB PO SCH ×2 (08:24→16:33)
[2017-12-03] MEDS: Famotidine 20 MG TAB PO SCH ×2 (08:24→21:43)
[2017-12-03] MEDS: DULoxetine 30 MG CAP PO SCH (08:24)
[2017-12-03] MEDS: Saccharomyces boulardii 250 MG CAP PO SCH ×2 (08:25→21:43)
[2017-12-03] MEDS: Apixaban 5 MG TAB PO SCH ×2 (08:25→21:43)
[2017-12-03] MEDS: Losartan 25 MG TAB PO SCH (08:25)
[2017-12-03] MEDS: Metoprolol Tartrate 50 MG TAB PO SCH (08:25)
[2017-12-03] MEDS: Ascorbic Acid 500 mg Chewable Tablet PO SCH (08:25)
[2017-12-03] MEDS: Magnesium Oxide 400 MG TAB PO SCH (08:26)
[2017-12-03] MEDS: Insulin Glargine 10 UNITS in Pre-Filled Syringe 1 EACH SC SCH (08:28)
[2017-12-03] MEDS: Carbidopa/Levodopa 25-250 mg Tablet PO SCH ×3 (08:29→21:45)
[2017-12-03] MEDS ORDERED: Magnesium 2 GM/NS 0.9% 100 ML 2 GM in Premix Bag 1 BAG IVPB SCH (16:45)
--- NOTE | 2017-12-03 17:54 | PDOC.PN ---
- Subjective Encounter Start Date: 12/03/17 Encounter Start Time: 09:40 Pt seen for followup re: acute metabolic encephalopathy. Pt lethargic, nonverbal, unable to complete ROS. - Objective Resuscitation Status: Resuscitation Status DNR:Do Not Resuscitate Vital Signs & Weight: Vital Signs (12 hours) Temp Pulse Resp BP Pulse Ox 12/03/17 14:15 90 18 12/03/17 10:31 90 18 12/03/17 08:00 99.2 F 102 H 16 140/87 94 L 12/03/17 07:14 100 24 H Weight Admit Weight 187 lb 14.4 oz Weight 187 lb 14.4 oz I&O: 12/02/17 12/03/17 12/04/17 06:59 06:59 06:59 Intake Total 2250 1180 120 Balance 2250 1180 120 Result Diagrams: 12/03/17 03:45 12/03/17 03:45 Additional Labs: Accuchecks 12/03/17 12/03/17 12/03/17 16:55 11:48 05:26 POC Glucose 338 H 341 H 299 H 12/02/17 21:19 POC Glucose 308 H Phys Exam - Physical Examination Obese HEENT: moist MMs Respiratory: clear to auscultation bilateral Cardiovascular: RRR Gastrointestinal: soft Musculoskeletal: edema present Neurological: moves all 4 limbs Deviation from normal: Unable to assess Dx/Plan (1) Metabolic encephalopathy Code(s): G93.41 - METABOLIC ENCEPHALOPATHY Status: Acute Comment: Improving , likely a combination of infection as well as medication. Continue antibiotics , marinol has been discontinued, observe for changes. (2) Aspiration pneumonia Code(s): J69.0 - PNEUMONITIS DUE TO INHALATION OF FOOD AND VOMIT Status: Acute Comment: IV Zosyn and vancomycin (3) Hypertension Code(s): I10 - ESSENTIAL (PRIMARY) HYPERTENSION Status: Chronic Comment: controlled (4) Sacral decubitus ulcer, stage II Code(s): L89.152 - PRESSURE ULCER OF SACRAL REGION, STAGE 2 Status: Chronic (5) UTI due to Klebsiella species Code(s): N39.0 - URINARY TRACT INFECTION, SITE NOT SPECIFIED; B96.1 - KLEBSIELLA PNEUMONIAE THE CAUSE OF DISEASES CLASSD ELSWHR Status: Resolved - Plan * . Review of Systems - Medications/Allergies Allergies/Adverse Reactions: Allergies Allergy/AdvReac Type Severity Reaction Status Date / Time azithromycin [From Zithromax] Allergy Verified 11/19/17 01:08 cefadroxil [From Duricef] Allergy Verified 11/19/17 01:08 erythromycin base Allergy Verified 11/19/17 01:08 influenza virus vaccine, Allergy Verified 11/19/17 01:08 specific Penicillins Allergy Verified 11/19/17 01:08 Medications: Current Medications Acetaminophen (Tylenol) 650 mg PO Q4H PRN PRN Reason: Headache/Fever or Pain Last Admin: 12/02/17 21:28 Dose: 650 mg Albuterol/Ipratropium (Duoneb) 3 ml NEB [id number] COUNT INCLUDES [facility] Last Admin: 12/03/17 14:15 Dose: 3 ml Apixaban (Eliquis) 5 mg PO BID [facility] Last Admin: 12/03/17 08:25 Dose: 5 mg Ascorbic Acid (Vitamin C) 500 mg PO DAILY [facility] Last Admin: 12/03/17 08:25 Dose: 500 mg Bisacodyl (Dulcolax) 10 mg PO DAILYPRN PRN PRN Reason: Constipation Bismuth Subsalicylate (Pepto Bismol) 2 tab PO Q1H PRN PRN Reason: Diarrhea/Loose Stools Carbidopa/Levodopa (Sinemet 25-250) 1 tab PO TID [facility] Last Admin: 12/03/17 14:49 Dose: 1 tab Cholecalciferol (Vitamin D3) 1,000 units PO DAILY [facility] Last Admin: 12/03/17 08:25 Dose: 1,000 units Dextrose/Water (Dextrose 50%) 25 gm SLOW IVP PRN PRN PRN Reason: Hypoglycemia Donepezil HCl (Aricept) 5 mg PO HS [facility] Last Admin: 12/02/17 20:12 Dose: 5 mg Duloxetine HCl (Cymbalta) 30 mg PO DAILY [facility] Last Admin: 12/03/17 08:24 Dose: 30 mg Famotidine (Pepcid) 20 mg PO BID [facility] Last Admin: 12/03/17 08:24 Dose: 20 mg Glucagon (Glucagon) 1 mg IM PRN PRN PRN Reason: Hypoglycemia Guaifenesin/Dextromethorphan (Robitussin Dm) 15 ml PO Q4H PRN PRN Reason: Cough Dextrose/Water (D5w) 1,000 mls @ 0 mls/hr IV .Q0M PRN PRN Reason: Hypoglycemia Insulin Glargine 10 units/ (Miscellaneous Medication) 0.1 mls @ 0 mls/hr SC QAM COUNT [facility]CLUDES [facility] Last Admin: 12/03/17 08:28 Dose: 0.1 mls Piperacillin Sod/Tazobactam (Sod 3.375 gm/ Sodium Chloride) 100 mls @ 200 mls/ hr IVPB Q6H [facility] Last Admin: 12/03/17 14:49 Dose: 100 mls Amino Acids/Electrolytes/Dextrose (Clinimix E 4.25/5) 1,000 mls @ 0 mls/hr IV .Q0M [facility] Last Admin: 12/02/17 18:02 Dose: 1,000 mls Vancomycin HCl 1 gm/ Device 200 mls @ 200 mls/hr IVPB 0100,1300 [facility] Last Admin: 12/03/17 12:15 Dose: 200 mls Magnesium Sulfate 2 gm/ Device 100 mls @ 100 mls/hr IVPB NOW COUNT [facility]CLUDES [facility] Stop: 12/03/17 19:00 Last Admin: 12/03/17 17:09 Dose: 100 mls Insulin Human Regular (Humulin R) 0 units SC .MODERATE SLIDING SC PRN; Protocol PRN Reason: MODERATE SLIDING SCALE Last Admin: 12/03/17 17:36 Dose: 8 unit Losartan Potassium (Cozaar) 25 mg PO DAILY [facility] Last Admin: 12/03/17 08:25 Dose: 25 mg Magnesium Oxide (Magnesium Oxide) 400 mg PO DAILY [facility] Last Admin: 12/03/17 08:26 Dose: 400 mg Metoprolol Tartrate (Lopressor) 50 mg PO DAILY [facility] Last Admin: 12/03/17 08:25 Dose: 50 mg Miscellaneous Medication (Pharmacy To Dose) 1 each IVPB ONE PRN PRN Reason: Pharmacy to dose Stop: 12/19/17 07:49 Nystatin (Mycostatin Powder) 0 gm TOP PRN PRN PRN Reason: MASD Ondansetron HCl (Zofran Odt) 4 mg PO Q6H PRN PRN Reason: Nausea/Vomiting Ondansetron HCl (Zofran) 4 mg IVP Q6H PRN PRN Reason: Nausea/Vomiting Last Admin: 11/22/17 11:39 Dose: 4 mg Oxycodone HCl (Oxycodone Ir) 5 mg PO Q6H PRN PRN Reason: Pain Potassium Chloride (K-Dur) 40 meq PO BID-[facility] Last Admin: 12/03/17 16:33 Dose: 40 meq Saccharomyces Boulardii (Florastor) 250 mg PO BID COUNT [facility]CLUDES [facility] Last Admin: 12/03/17 08:25 Dose: 250 mg Sodium Chloride (Flush - Normal Saline) 10 ml IVF Q12HR COUNT [facility]CLUDES [facility] Last Admin: 12/03/17 08:35 Dose: 10 ml Sodium Chloride (Flush - Normal Saline) 10 ml IVF PRN PRN PRN Reason: Saline Flush Last Admin: 11/23/17 15:14 Dose: 10 ml
[2017-12-03] MEDS: Acetaminophen 325 MG TAB PO PRN (21:13)
[2017-12-03] MEDS: Donepezil HCl 5 MG TAB PO SCH (21:43)
[2017-12-03] MEDS: D5W-AA 4.25% with LYTES 1,000 ML IV SCH (23:06)
[2017-12-04] MEDS ORDERED: methylPREDNISolone Sod Succ/PF 125 MG/2 ML VIAL IVP SCH (02:45)
[2017-12-04] MEDS: Vancomycin HCl 1 GM in Premix Bag 1 BAG IVPB SCH ×2 (02:46→13:07)
[2017-12-04] MEDS: Acetaminophen 325 MG TAB PO PRN ×2 (02:48→20:49)
[2017-12-04 04:43] LABS: #Eosinphils 0.1 thou/uL (0.0-0.7); #Lymphocytes 1.4 thou/uL (1.20-3.40); #Monocytes 0.8 thou/uL (0.11-0.59); #Neutrophils 7.3 thou/uL (1.40-6.50); %Basophils 0.2 % (0.0-1.0); %Eosinophils 0.7 % (0.0-10.0); %Lymphocytes 14.2 % (21.0-51.0); %Neutrophils 76.9 % (42.0-75.0); Mean Corpuscular HGB CONC 32.7 g/dL (32.0-36.0); Mean Corpuscular Hemoglobin 28.4 pg (27.0-31.0); Mean Corpuscular Volume 86.9 fL (78.0-98.0); Mean Platelet Volume 7.8 fL (7.4-10.4); Platelet Count 300 thou/uL (130-400); RBC Distribution Width 14.9 % (11.5-14.5); Red Blood Cell (RBC) Count 3.16 mill/uL (4.20-5.40); White Blood Cell (WBC) Count 9.5 thou/uL (4.8-10.8)
[2017-12-04 04:51] LABS: Anion Gap 11 mmol/L (10-20); BUN (Urea Nitrogen) 16 mg/dL (9.8-20.1); Calc. Creatinine Clearance 79 mL/min (70-130); Calcium 8.9 mg/dL (7.8-10.44); Carbon Dioxide 24 mmol/L (23-31); Chloride 107 mmol/L (98-107); Estimated GFR-MDRD 70; Glucose 323 mg/dL (83-110); Magnesium 1.5 mg/dL (1.6-2.6); Phosphorus 3.1 mg/dL (2.3-4.7); Potassium 4.1 mmol/L (3.5-5.1); Sodium 138 mmol/L (136-145)
[2017-12-04] MEDS: Piperacillin/Tazobactam 3.375 GM in Sodium Chloride 0.9% 100 ML IVPB SCH ×4 (05:15→20:49)
[2017-12-04] MEDS: Insulin Regular 300 UNITS/3 ML VIAL SC PRN ×4 (05:51→20:46)
[2017-12-04] MEDS: Levalbuterol HCl 1.25 MG/0.5 ML NEB NEB SCH ×3 (06:25→22:12)
[2017-12-04] MEDS: Ipratropium Bromide 2.5 ml Neb NEB SCH ×5 (06:27→22:07)
[2017-12-04] MEDS: Losartan 25 MG TAB PO SCH (07:52)
[2017-12-04] MEDS: Magnesium Oxide 400 MG TAB PO SCH (07:52)
[2017-12-04] MEDS: Ascorbic Acid 500 mg Chewable Tablet PO SCH (07:52)
[2017-12-04] MEDS: Carbidopa/Levodopa 25-250 mg Tablet PO SCH ×3 (07:52→20:18)
[2017-12-04] MEDS: DULoxetine 30 MG CAP PO SCH (07:53)
[2017-12-04] MEDS: Saccharomyces boulardii 250 MG CAP PO SCH ×2 (07:53→20:17)
[2017-12-04] MEDS: Apixaban 5 MG TAB PO SCH ×2 (07:53→20:17)
[2017-12-04] MEDS: Potassium Chloride 20 MEQ TAB PO SCH ×2 (07:53→17:55)
[2017-12-04] MEDS: Metoprolol Tartrate 50 MG TAB PO SCH (07:53)
[2017-12-04] MEDS: Famotidine 20 MG TAB PO SCH ×2 (07:57→20:17)
[2017-12-04] MEDS: Insulin Glargine 10 UNITS in Pre-Filled Syringe 1 EACH SC SCH (08:37)
--- NOTE | 2017-12-04 09:33 | RAD ---
SEMIUPRIGHT PORTABLE FRONTAL CHEST RADIOGRAPH: DATE: 12/04/17. COMPARISON: 11/28/17. HISTORY: Short of breath. FINDINGS: There is hazy bibasilar increased density with blunting of the costophrenic angles suggesting nonspec ific pleural and parenchymal opacity. There is no pneumothorax evident. IMPRESSION: Hazy bibasilar density may represent the sequelae of edema or infectious pneumonitis. Recommend PA a nd lateral chest imaging following treatment to document resolution. POS: JONYH
[2017-12-04 12:59] LABS: Vancomycin, Trough 17.1 ug/mL
--- NOTE | 2017-12-04 17:20 | PDOC.PN ---
- Subjective Encounter Start Date: 12/04/17 Encounter Start Time: 09:40 Pt seen for followup re: metabolic encephalopathy.. More alert, answering a few questions. - Objective Resuscitation Status: Resuscitation Status DNR:Do Not Resuscitate Vital Signs & Weight: Vital Signs (12 hours) Temp Pulse Resp BP Pulse Ox 12/04/17 15:35 70 97 12/04/17 10:20 97 24 H 96 12/04/17 08:00 93 L 12/04/17 07:21 98.5 F 98 22 H 106/77 93 L 12/04/17 06:25 95 32 H 95 Weight Admit Weight 187 lb 14.4 oz Weight 187 lb 14.4 oz I&O: 12/03/17 12/04/17 12/05/17 06:59 06:59 06:59 Intake Total 1180 240 240 Balance 1180 240 240 Result Diagrams: 12/04/17 03:56 12/04/17 03:56 Additional Labs: Accuchecks 12/04/17 12/04/17 12/04/17 16:42 11:40 05:19 POC Glucose 506 H 454 H 350 H 12/03/17 12/03/17 21:00 16:55 POC Glucose 315 H 338 H Phys Exam - Physical Examination Constitutional: NAD HEENT: moist MMs Neck: supple Bibasal crackles Cardiovascular: RRR Gastrointestinal: soft Neurological: moves all 4 limbs Psychiatric: normal affect Dx/Plan (1) Metabolic encephalopathy Code(s): G93.41 - METABOLIC ENCEPHALOPATHY Status: Acute Comment: Improving. marinol discontinued (2) Aspiration pneumonia Code(s): J69.0 - PNEUMONITIS DUE TO INHALATION OF FOOD AND VOMIT Status: Acute Comment: will continueIV Zosyn and vancomycin, will discontinue antibiotics once mentation improves and observe. (3) Hypertension Code(s): I10 - ESSENTIAL (PRIMARY) HYPERTENSION Status: Chronic Comment: controlled (4) Sacral decubitus ulcer, stage II Code(s): L89.152 - PRESSURE ULCER OF [place] REG[place], STAGE 2 Status: Chronic (5) UTI due to Klebsiella species Code(s): N39.0 - URINARY TRACT INFECTION, SITE NOT SPECIFIED; B96.1 - KLEBSIELLA PNEUMONIAE THE CAUSE OF DISEASES CLASSD ELSWHR Status: Resolved - Plan plan discussed w/ family, continue antibiotics, PT/OT, speech therapy * . Review of Systems - Review of Systems Respiratory: negative: Cough, Shortness of Breath, SOB with Excertion, Pleuritic Pain, Wheezing Cardiovascular: negative: chest pain, palpitations, orthopnea, paroxysmal nocturnal dyspnea, edema, light headedness - Medications/Allergies Allergies/Adverse Reactions: Allergies Allergy/AdvReac Type Severity Reaction Status Date / Time azithromycin [From Zithromax] Allergy Verified 11/19/17 01:08 cefadroxil [From Duricef] Allergy Verified 11/19/17 01:08 erythromycin base Allergy Verified 11/19/17 01:08 influenza virus vaccine, Allergy Verified 11/19/17 01:08 specific Penicillins Allergy Verified 11/19/17 01:08 Medications: Current Medications Acetaminophen (Tylenol) 650 mg PO Q4H PRN PRN Reason: Headache/Fever or Pain Last Admin: 12/04/17 02:48 Dose: 650 mg Acetaminophen (Tylenol) 650 mg [place] Q4H PRN PRN Reason: Headache/Fever or MILD PAIN Apixaban (Eliquis) 5 mg PO BID [facility] Last Admin: 12/04/17 07:53 Dose: 5 mg Ascorbic Acid (Vitamin C) 500 mg PO DAILY [facility] Last Admin: 12/04/17 07:52 Dose: 500 mg Bisacodyl (Dulcolax) 10 mg PO DAILYPRN PRN PRN Reason: Constipation Bismuth Subsalicylate (Pepto Bismol) 2 tab PO Q1H PRN PRN Reason: Diarrhea/Loose Stools Carbidopa/Levodopa (Sinemet 25-250) 1 tab PO TID [facility] Last Admin: 12/04/17 15:32 Dose: 1 tab Cholecalciferol (Vitamin D3) 1,000 units PO DAILY [facility] Last Admin: 12/04/17 07:52 Dose: 1,000 units Dextrose/Water (Dextrose 50%) 25 gm SLOW IVP PRN PRN PRN Reason: Hypoglycemia Donepezil HCl (Aricept) 5 mg PO HS [facility] Last Admin: 12/03/17 21:43 Dose: 5 mg Duloxetine HCl (Cymbalta) 30 mg PO DAILY [facility] Last Admin: 12/04/17 07:53 Dose: 30 mg Famotidine (Pepcid) 20 mg PO BID [facility] Last Admin: 12/04/17 07:57 Dose: 20 mg Glucagon (Glucagon) 1 mg IM PRN PRN PRN Reason: Hypoglycemia Guaifenesin/Dextromethorphan (Robitussin Dm) 15 ml PO Q4H PRN PRN Reason: Cough Dextrose/Water (D5w) 1,000 mls @ 0 mls/hr IV .Q0M PRN PRN Reason: Hypoglycemia Insulin Glargine 10 units/ (Miscellaneous Medication) 0.1 mls @ 0 mls/hr SC QAM [facility] Last Admin: 12/04/17 08:37 Dose: 0.1 mls Piperacillin Sod/Tazobactam (Sod 3.375 gm/ Sodium Chloride) 100 mls @ 200 mls/ hr IVPB Q6H [facility] Last Admin: 12/04/17 15:32 Dose: 100 mls Amino Acids/Electrolytes/Dextrose (Clinimix E 4.25/5) 1,000 mls @ 0 mls/hr IV .Q0M [facility] Last Admin: 12/03/17 23:06 Dose: 1,000 mls Vancomycin HCl 1 gm/ Device 200 mls @ 200 mls/hr IVPB 0100,1300 [facility] Last Admin: 12/04/17 13:07 Dose: 200 mls Insulin Human Regular (Humulin R) 0 units SC .MODERATE SLIDING SC PRN; Protocol PRN Reason: MODERATE SLIDING SCALE Last Admin: 12/04/17 16:44 Dose: 10 unit Ipratropium [place] (Atrovent) 2.5 ml NEB [id number] [facility] Last Admin: 12/04/17 15:35 Dose: 2.5 ml Levalbuterol HCl (Xopenex Conc) 1.25 mg NEB [id number] [facility] Last Admin: 12/04/17 15:36 Dose: 1.25 mg Losartan Potassium (Cozaar) 25 mg PO DAILY [facility] Last Admin: 12/04/17 07:52 Dose: 25 mg Magnesium Oxide (Magnesium Oxide) 400 mg PO DAILY [facility] Last Admin: 12/04/17 07:52 Dose: 400 mg Metoprolol Tartrate (Lopressor) 50 mg PO DAILY [facility] Last Admin: 12/04/17 07:53 Dose: 50 mg Miscellaneous Medication (Pharmacy To Dose) 1 each IVPB ONE PRN PRN Reason: Pharmacy to dose Stop: 12/19/17 07:49 Nystatin (Mycostatin Powder) 0 gm TOP PRN PRN PRN Reason: MASD Ondansetron HCl (Zofran Odt) 4 mg PO Q6H PRN PRN Reason: Nausea/Vomiting Ondansetron HCl (Zofran) 4 mg IVP Q6H PRN PRN Reason: Nausea/Vomiting Last Admin: 11/22/17 11:39 Dose: 4 mg Oxycodone HCl (Oxycodone Ir) 5 mg PO Q6H PRN PRN Reason: Pain Potassium Chloride (K-Dur) 40 meq PO BID-[facility] Last Admin: 12/04/17 07:53 Dose: 40 meq Saccharomyces Boulardii (Florastor) 250 mg PO BID [facility] Last Admin: 12/04/17 07:53 Dose: 250 mg Sodium Chloride (Flush - Normal Saline) 10 ml IVF Q12HR [facility] Last Admin: 12/04/17 07:53 Dose: 10 ml Sodium Chloride (Flush - Normal Saline) 10 ml IVF PRN PRN PRN Reason: Saline Flush Last Admin: 11/23/17 15:14 Dose: 10 ml
[2017-12-04] MEDS: Donepezil HCl 5 MG TAB PO SCH (20:17)
[2017-12-04] MEDS ORDERED: Insulin Glargine 20 UNITS in Pre-Filled Syringe 1 EACH SC SCH (21:30)
[2017-12-05] MEDS: Vancomycin HCl 1 GM in Premix Bag 1 BAG IVPB SCH ×2 (00:37→12:36)
[2017-12-05] MEDS: Ipratropium Bromide 2.5 ml Neb NEB SCH ×6 (02:13→21:57)
[2017-12-05] MEDS: Piperacillin/Tazobactam 3.375 GM in Sodium Chloride 0.9% 100 ML IVPB SCH ×4 (02:46→20:17)
[2017-12-05] MEDS: Insulin Regular 300 UNITS/3 ML VIAL SC PRN ×2 (03:54→11:44)
[2017-12-05 04:52] LABS: #Lymphocytes 1.1 thou/uL (1.20-3.40); #Monocytes 0.7 thou/uL (0.11-0.59); #Neutrophils 6.4 thou/uL (1.40-6.50); %Basophils 0.5 % (0.0-1.0); %Eosinophils 0.2 % (0.0-10.0); %Lymphocytes 13.6 % (21.0-51.0); %Neutrophils 77.8 % (42.0-75.0); Hemoglobin 8.3 g/dL (12.0-16.0); Mean Corpuscular HGB CONC 31.3 g/dL (32.0-36.0); Mean Corpuscular Hemoglobin 27.5 pg (27.0-31.0); Mean Platelet Volume 8.3 fL (7.4-10.4); Platelet Count 322 thou/uL (130-400); RBC Distribution Width 14.8 % (11.5-14.5); White Blood Cell (WBC) Count 8.2 thou/uL (4.8-10.8)
[2017-12-05 05:04] LABS: Anion Gap 11 mmol/L (10-20); BUN (Urea Nitrogen) 27 mg/dL (9.8-20.1); Calc. Creatinine Clearance 66 mL/min (70-130); Calcium 8.9 mg/dL (7.8-10.44); Carbon Dioxide 25 mmol/L (23-31); Chloride 107 mmol/L (98-107); Estimated GFR-MDRD 56; Glucose 538 mg/dL (83-110); Magnesium 1.7 mg/dL (1.6-2.6); Potassium 4.7 mmol/L (3.5-5.1); Sodium 138 mmol/L (136-145)
[2017-12-05] MEDS: D5W-AA 4.25% with LYTES 1,000 ML IV SCH ×2 (05:24→20:19)
[2017-12-05] MEDS: Levalbuterol HCl 1.25 MG/0.5 ML NEB NEB SCH ×3 (06:54→21:54)
[2017-12-05] MEDS: Magnesium Oxide 400 MG TAB PO SCH (07:45)
[2017-12-05] MEDS: Metoprolol Tartrate 50 MG TAB PO SCH (07:45)
[2017-12-05] MEDS: Losartan 25 MG TAB PO SCH (07:45)
[2017-12-05] MEDS: Famotidine 20 MG TAB PO SCH ×2 (07:45→20:10)
[2017-12-05] MEDS: DULoxetine 30 MG CAP PO SCH (07:45)
[2017-12-05] MEDS: Apixaban 5 MG TAB PO SCH ×2 (07:45→20:09)
[2017-12-05] MEDS: Ascorbic Acid 500 mg Chewable Tablet PO SCH (07:46)
[2017-12-05] MEDS: Potassium Chloride 20 MEQ TAB PO SCH ×2 (07:46→17:16)
[2017-12-05] MEDS: Carbidopa/Levodopa 25-250 mg Tablet PO SCH ×3 (07:46→20:10)
[2017-12-05] MEDS: Saccharomyces boulardii 250 MG CAP PO SCH ×2 (07:46→20:10)
[2017-12-05] MEDS: Insulin Glargine 5 UNITS in Pre-Filled Syringe 1 EACH SC SCH (08:43)
--- NOTE | 2017-12-05 14:01 | PDOC.PN ---
- Subjective Encounter Start Date: 12/05/17 Encounter Start Time: 10:00 Pt seen for followup re: acute encephalopathy. Answering questions, denies chest pain, shortness of breath, fevers or chills. - Objective Resuscitation Status: Resuscitation Status DNR:Do Not Resuscitate Vital Signs & Weight: Vital Signs (12 hours) Temp Pulse Resp BP Pulse Ox 12/05/17 10:35 81 16 98 12/05/17 08:02 97.9 F 98 16 155/77 H 97 12/05/17 08:00 97 12/05/17 06:56 94 18 98 12/05/17 06:54 94 18 98 12/05/17 02:13 20 Weight Admit Weight 187 lb 14.4 oz Weight 187 lb 14.4 oz I&O: 12/04/17 12/05/17 12/06/17 06:59 06:59 06:59 Intake Total 240 480 120 Balance 240 480 120 Result Diagrams: 12/05/17 04:08 12/05/17 04:08 Additional Labs: Accuchecks 12/05/17 12/05/17 12/05/17 11:42 05:41 02:54 POC Glucose 479 H 531 H 510 H 12/04/17 12/04/17 20:23 16:42 POC Glucose 538 H 506 H Phys Exam - Physical Examination Obese HEENT: moist MMs Neck: supple Bibasal crackles Cardiovascular: RRR Gastrointestinal: soft Musculoskeletal: edema present Neurological: moves all 4 limbs Psychiatric: normal affect Dx/Plan (1) Metabolic encephalopathy Code(s): G93.41 - METABOLIC ENCEPHALOPATHY Status: Acute Comment: Improved (2) Aspiration pneumonia Code(s): J69.0 - PNEUMONITIS DUE TO INHALATION OF FOOD AND VOMIT Status: Acute Comment: Pt had fevers yesteday, will continueIV Zosyn and vancomycin (3) Hypertension Code(s): I10 - ESSENTIAL (PRIMARY) HYPERTENSION Status: Chronic Comment: controlled (4) Sacral decubitus ulcer, stage II Code(s): L89.152 - PRESSURE ULCER OF SACRAL REGION, STAGE 2 Status: Chronic (5) UTI due to Klebsiella species Code(s): N39.0 - URINARY TRACT INFECTION, SITE NOT SPECIFIED; B96.1 - KLEBSIELLA PNEUMONIAE THE CAUSE OF DISEASES CLASSD ELSWHR Status: Resolved - Plan * . Review of Systems - Review of Systems Respiratory: negative: Cough, Shortness of Breath, SOB with Excertion, Pleuritic Pain, Wheezing Cardiovascular: negative: chest pain, palpitations, orthopnea, paroxysmal nocturnal dyspnea, edema, light headedness - Medications/Allergies Allergies/Adverse Reactions: Allergies Allergy/AdvReac Type Severity Reaction Status Date / Time azithromycin [From Zithromax] Allergy Verified 11/19/17 01:08 cefadroxil [From Duricef] Allergy Verified 11/19/17 01:08 erythromycin base Allergy Verified 11/19/17 01:08 influenza virus vaccine, Allergy Verified 11/19/17 01:08 specific Penicillins Allergy Verified 11/19/17 01:08 Medications: Current Medications Acetaminophen (Tylenol) 650 mg PO Q4H PRN PRN Reason: Headache/Fever or Pain Last Admin: 12/04/17 20:49 Dose: 650 mg Acetaminophen (Tylenol) 650 mg [place] Q4H PRN PRN Reason: Headache/Fever or MILD PAIN Apixaban (Eliquis) 5 mg PO BID [facility] Last Admin: 12/05/17 07:45 Dose: 5 mg Ascorbic Acid (Vitamin C) 500 mg PO DAILY [facility] Last Admin: 12/05/17 07:46 Dose: 500 mg Bisacodyl (Dulcolax) 10 mg PO DAILYPRN PRN PRN Reason: Constipation Bismuth Subsalicylate (Pepto Bismol) 2 tab PO Q1H PRN PRN Reason: Diarrhea/Loose Stools Carbidopa/Levodopa (Sinemet 25-250) 1 tab PO TID [facility] Last Admin: 12/05/17 07:46 Dose: 1 tab Cholecalciferol (Vitamin D3) 1,000 units PO DAILY [facility] Last Admin: 12/05/17 07:45 Dose: 1,000 units Dextrose/Water (Dextrose 50%) 25 gm SLOW IVP PRN PRN PRN Reason: Hypoglycemia Donepezil HCl (Aricept) 5 mg PO HS [facility] Last Admin: 12/04/17 20:17 Dose: 5 mg Duloxetine HCl (Cymbalta) 30 mg PO DAILY [facility] Last Admin: 12/05/17 07:45 Dose: 30 mg Famotidine (Pepcid) 20 mg PO BID [facility] Last Admin: 12/05/17 07:45 Dose: 20 mg Glucagon (Glucagon) 1 mg IM PRN PRN PRN Reason: Hypoglycemia Guaifenesin/Dextromethorphan (Robitussin Dm) 15 ml PO Q4H PRN PRN Reason: Cough Dextrose/Water (D5w) 1,000 mls @ 0 mls/hr IV .Q0M PRN PRN Reason: Hypoglycemia Piperacillin Sod/Tazobactam (Sod 3.375 gm/ Sodium Chloride) 100 mls @ 200 mls/ hr IVPB Q6H [facility] Last Admin: 12/05/17 07:52 Dose: 100 mls Amino Acids/Electrolytes/Dextrose (Clinimix E 4.25/5) 1,000 mls @ 0 mls/hr IV .Q0M [facility] Last Admin: 12/05/17 05:24 Dose: 1,000 mls Vancomycin HCl 1 gm/ Device 200 mls @ 200 mls/hr IVPB 0100,1300 [facility] Last Admin: 12/05/17 12:36 Dose: 200 mls Insulin Glargine 20 units/ (Miscellaneous Medication) 0.2 mls @ 0 mls/hr SC HS [facility] Insulin Glargine 5 units/ (Miscellaneous Medication) 0.05 mls @ 0 mls/hr SC QAM [facility] Last Admin: 12/05/17 08:43 Dose: 0.05 mls Insulin Human Regular (Humulin R) 0 units SC .MODERATE SLIDING SC PRN; Protocol PRN Reason: MODERATE SLIDING SCALE Last Admin: 12/05/17 11:44 Dose: 10 unit Ipratropium [place] (Atrovent) 2.5 ml NEB [id number] [facility] Last Admin: 12/05/17 10:35 Dose: 2.5 ml Levalbuterol HCl (Xopenex Conc) 1.25 mg NEB [id number] [facility] Last Admin: 12/05/17 06:54 Dose: 1.25 mg Losartan Potassium (Cozaar) 25 mg PO DAILY [facility] Last Admin: 12/05/17 07:45 Dose: 25 mg Magnesium Oxide (Magnesium Oxide) 400 mg PO DAILY [facility] Last Admin: 12/05/17 07:45 Dose: 400 mg Metoprolol Tartrate (Lopressor) 50 mg PO DAILY [facility] Last Admin: 12/05/17 07:45 Dose: 50 mg Miscellaneous Medication (Pharmacy To Dose) 1 each IVPB ONE PRN PRN Reason: Pharmacy to dose Stop: 12/19/17 07:49 Nystatin (Mycostatin Powder) 0 gm TOP PRN PRN PRN Reason: MASD Ondansetron HCl (Zofran Odt) 4 mg PO Q6H PRN PRN Reason: Nausea/Vomiting Ondansetron HCl (Zofran) 4 mg IVP Q6H PRN PRN Reason: Nausea/Vomiting Last Admin: 11/22/17 11:39 Dose: 4 mg Oxycodone HCl (Oxycodone Ir) 5 mg PO Q6H PRN PRN Reason: Pain Potassium Chloride (K-Dur) 40 meq PO BID-[facility] Last Admin: 12/05/17 07:46 Dose: 40 meq Saccharomyces Boulardii (Florastor) 250 mg PO BID [facility] Last Admin: 12/05/17 07:46 Dose: 250 mg Sodium Chloride (Flush - Normal Saline) 10 ml IVF Q12HR [facility] Last Admin: 12/05/17 07:47 Dose: 10 ml Sodium Chloride (Flush - Normal Saline) 10 ml IVF PRN PRN PRN Reason: Saline Flush Last Admin: 11/23/17 15:14 Dose: 10 ml
[2017-12-05] MEDS: Donepezil HCl 5 MG TAB PO SCH (20:10)
[2017-12-05] MEDS: Insulin Glargine 20 UNITS in Pre-Filled Syringe 1 EACH SC SCH (20:15)
[2017-12-06] MEDS: Vancomycin HCl 1 GM in Premix Bag 1 BAG IVPB SCH (01:00)
[2017-12-06] MEDS: Ipratropium Bromide 2.5 ml Neb NEB SCH ×6 (01:42→22:58)
[2017-12-06] MEDS: Piperacillin/Tazobactam 3.375 GM in Sodium Chloride 0.9% 100 ML IVPB SCH ×2 (02:45→09:36)
[2017-12-06] MEDS: Insulin Regular 300 UNITS/3 ML VIAL SC PRN ×4 (02:56→23:00)
[2017-12-06 05:00] LABS: #Eosinphils 0.4 thou/uL (0.0-0.7); #Lymphocytes 2.6 thou/uL (1.20-3.40); #Monocytes 0.9 thou/uL (0.11-0.59); #Neutrophils 6.8 thou/uL (1.40-6.50); %Basophils 0.2 % (0.0-1.0); %Eosinophils 3.5 % (0.0-10.0); %Monocytes 8.5 % (0.0-10.0); %Neutrophils 63.9 % (42.0-75.0); Hemoglobin 8.4 g/dL (12.0-16.0); Mean Corpuscular HGB CONC 30.7 g/dL (32.0-36.0); Mean Corpuscular Hemoglobin 26.8 pg (27.0-31.0); Mean Corpuscular Volume 87.2 fL (78.0-98.0); Mean Platelet Volume 8.1 fL (7.4-10.4); Platelet Count 299 thou/uL (130-400); RBC Distribution Width 14.9 % (11.5-14.5); Red Blood Cell (RBC) Count 3.14 mill/uL (4.20-5.40); White Blood Cell (WBC) Count 10.7 thou/uL (4.8-10.8)
[2017-12-06 05:06] LABS: Anion Gap 13 mmol/L (10-20); BUN (Urea Nitrogen) 26 mg/dL (9.8-20.1); Calc. Creatinine Clearance 75 mL/min (70-130); Calcium 8.6 mg/dL (7.8-10.44); Carbon Dioxide 21 mmol/L (23-31); Chloride 108 mmol/L (98-107); Estimated GFR-MDRD 66; Glucose 486 mg/dL (83-110); Magnesium 1.5 mg/dL (1.6-2.6); Phosphorus 2.7 mg/dL (2.3-4.7); Potassium 4.9 mmol/L (3.5-5.1); Sodium 137 mmol/L (136-145)
[2017-12-06] MEDS: Levalbuterol HCl 1.25 MG/0.5 ML NEB NEB SCH ×3 (06:50→22:55)
[2017-12-06] MEDS: Famotidine 20 MG TAB PO SCH ×2 (09:33→20:01)
[2017-12-06] MEDS: Potassium Chloride 20 MEQ TAB PO SCH ×2 (09:33→09:53)
[2017-12-06] MEDS: Apixaban 5 MG TAB PO SCH ×2 (09:33→20:01)
[2017-12-06] MEDS: Ascorbic Acid 500 mg Chewable Tablet PO SCH (09:33)
[2017-12-06] MEDS: Magnesium Oxide 400 MG TAB PO SCH (09:34)
[2017-12-06] MEDS: Losartan 25 MG TAB PO SCH (09:34)
[2017-12-06] MEDS: Metoprolol Tartrate 50 MG TAB PO SCH (09:34)
[2017-12-06] MEDS: Saccharomyces boulardii 250 MG CAP PO SCH ×2 (09:34→20:02)
[2017-12-06] MEDS: Carbidopa/Levodopa 25-250 mg Tablet PO SCH ×3 (09:34→20:02)
[2017-12-06] MEDS: DULoxetine 30 MG CAP PO SCH (09:34)
[2017-12-06] MEDS: Insulin Glargine 5 UNITS in Pre-Filled Syringe 1 EACH SC SCH (09:53)
[2017-12-06] MEDS ORDERED: Insulin Glargine 10 UNITS in Pre-Filled Syringe 1 EACH SC SCH (10:00)
[2017-12-06 10:13] LABS: Hemoglobin 8.4 g/dL (12.0-16.0); Mean Corpuscular HGB CONC 32.7 g/dL (32.0-36.0); Mean Corpuscular Volume 85.6 fL (78.0-98.0); Mean Platelet Volume 7.7 fL (7.4-10.4); Platelet Count 312 thou/uL (130-400); RBC Distribution Width 14.9 % (11.5-14.5); Red Blood Cell (RBC) Count 3.02 mill/uL (4.20-5.40); White Blood Cell (WBC) Count 10.8 thou/uL (4.8-10.8)
[2017-12-06 10:43] LABS: #Eosinphils 0.3 thou/uL (0.0-0.7); #Neutrophils 7.5 thou/uL (1.40-6.50); %Basophils 0.2 % (0.0-1.0); %Eosinophils 2.9 % (0.0-10.0); %Lymphocytes 18.2 % (21.0-51.0); %Monocytes 9.1 % (0.0-10.0); %Neutrophils 69.5 % (42.0-75.0); Burr Cells SLIGHT = 2-5 cells (100X) (0-1/hpf); Eosinophils 2 % (0-10); Hypochromia MODERATE=16-30 cells (100X) (0-5/hpf); Lymphocytes 25 % (21-51); MDiff Complete? YES; Microcytosis SLIGHT = 6-15 cells (100X) (0-5/hpf); Monocytes 8 % (0-10); Neutrophil 65 % (42-75); PLT Morphology Comment Appears Adequate; Polychromasia SLIGHT = 2-3 cells (100X) (0-2/hpf)
[2017-12-06 10:48] LABS: Anion Gap 14 mmol/L (10-20); BUN (Urea Nitrogen) 25 mg/dL (9.8-20.1); Calc. Creatinine Clearance 76 mL/min (70-130); Calcium 8.8 mg/dL (7.8-10.44); Carbon Dioxide 20 mmol/L (23-31); Chloride 108 mmol/L (98-107); Estimated GFR-MDRD 67; Glucose 429 mg/dL (83-110); Magnesium 1.7 mg/dL (1.6-2.6); Phosphorus 2.7 mg/dL (2.3-4.7); Sodium 137 mmol/L (136-145)
[2017-12-06] MEDS ORDERED: Furosemide 20 MG/2 ML VIAL SLOW IVP SCH ×3 (12:15→20:00)
[2017-12-06] MEDS: D5W-AA 4.25% with LYTES 1,000 ML IV SCH ×5 (12:58→18:11)
--- NOTE | 2017-12-06 14:04 | PDOC.PN ---
- Subjective Encounter Start Date: 12/06/17 Encounter Start Time: 09:00 Pt seen for followup re: acute encephalopathy. Awake and alert, answering some questions. Denies chest pain, shortness of breath, fevers or chills. Did not sleep well. - Objective Resuscitation Status: Resuscitation Status DNR:Do Not Resuscitate MAR Reviewed: Yes Vital Signs & Weight: Vital Signs (12 hours) Temp Pulse Resp BP Pulse Ox 12/06/17 10:48 84 22 H 98 12/06/17 07:42 98.5 F 98 16 142/64 H 96 12/06/17 06:56 96 12/06/17 06:54 96 22 H 103 H 12/06/17 06:50 96 22 H 100 Weight Admit Weight 187 lb 14.4 oz Weight 187 lb 14.4 oz I&O: 12/05/17 12/06/17 12/07/17 06:59 06:59 06:59 Intake Total 209 475 4657 Balance 876 165 0862 Result Diagrams: 12/06/17 09:58 12/06/17 09:58 Additional Labs: Accuchecks 12/06/17 12/06/17 12/06/17 11:24 05:16 02:54 POC Glucose 470 H 426 H 479 H 12/05/17 12/05/17 21:12 16:20 POC Glucose 473 H 503 H Labs reviewed by me Phys Exam - Physical Examination Obesity HEENT: moist MMs Neck: supple Respiratory: clear to auscultation bilateral Cardiovascular: RRR Gastrointestinal: soft Musculoskeletal: edema present Neurological: moves all 4 limbs Psychiatric: normal affect Dx/Plan (1) Metabolic encephalopathy Code(s): G93.41 - METABOLIC ENCEPHALOPATHY Status: Acute Comment: Improved (2) Aspiration pneumonia Code(s): J69.0 - PNEUMONITIS DUE TO INHALATION OF FOOD AND VOMIT Status: Acute Comment: No fevers, will discontinue antibiotics and observe (3) Hypertension Code(s): I10 - ESSENTIAL (PRIMARY) HYPERTENSION Status: Chronic Comment: controlled (4) Sacral decubitus ulcer, stage II Code(s): L89.152 - PRESSURE ULCER OF SACRAL REGION, STAGE 2 Status: Chronic (5) UTI due to Klebsiella species Code(s): N39.0 - URINARY TRACT INFECTION, SITE NOT SPECIFIED; B96.1 - KLEBSIELLA PNEUMONIAE THE CAUSE OF DISEASES CLASSD ELSWHR Status: Resolved - Plan plan discussed w/ family, PT/OT, speech therapy * . Trial IV albumin for edema Administer lasix 20 mg IV x 1 Discussed with family re: plan to discontinue antibiotics, family agrees with plan. Review of Systems - Review of Systems Constitutional: negative: fever, chills, sweats, weakness, malaise Cardiovascular: negative: chest pain, palpitations, orthopnea, paroxysmal nocturnal dyspnea, edema, light headedness - Medications/Allergies Allergies/Adverse Reactions: Allergies Allergy/AdvReac Type Severity Reaction Status Date / Time azithromycin [From Zithromax] Allergy Verified 11/19/17 01:08 cefadroxil [From Duricef] Allergy Verified 11/19/17 01:08 erythromycin base Allergy Verified 11/19/17 01:08 influenza virus vaccine, Allergy Verified 11/19/17 01:08 specific Penicillins Allergy Verified 11/19/17 01:08 Medications: Current Medications Acetaminophen (Tylenol) 650 mg PO Q4H PRN PRN Reason: Headache/Fever or Pain Last Admin: 12/04/17 20:49 Dose: 650 mg Acetaminophen (Tylenol) 650 mg [place] Q4H PRN PRN Reason: Headache/Fever or MILD PAIN Albumin Human (Albumin 25%) 25 gm IVPB DAILY [facility] Stop: 12/08/17 09:01 Apixaban (Eliquis) 5 mg PO BID [facility] Last Admin: 12/06/17 09:33 Dose: 5 mg Ascorbic Acid (Vitamin C) 500 mg PO DAILY [facility] Last Admin: 12/06/17 09:33 Dose: 500 mg Bisacodyl (Dulcolax) 10 mg PO DAILYPRN PRN PRN Reason: Constipation Bismuth Subsalicylate (Pepto Bismol) 2 tab PO Q1H PRN PRN Reason: Diarrhea/Loose Stools Carbidopa/Levodopa (Sinemet 25-250) 1 tab PO TID [facility] Last Admin: 12/06/17 09:34 Dose: 1 tab Cholecalciferol (Vitamin D3) 1,000 units PO DAILY [facility] Last Admin: 12/06/17 09:34 Dose: 1,000 units Dextrose/Water (Dextrose 50%) 25 gm SLOW IVP PRN PRN PRN Reason: Hypoglycemia Donepezil HCl (Aricept) 5 mg PO HS [facility] Last Admin: 12/05/17 20:10 Dose: 5 mg Duloxetine HCl (Cymbalta) 30 mg PO DAILY [facility] Last Admin: 12/06/17 09:34 Dose: 30 mg Famotidine (Pepcid) 20 mg PO BID [facility] Last Admin: 12/06/17 09:33 Dose: 20 mg Glucagon (Glucagon) 1 mg IM PRN PRN PRN Reason: Hypoglycemia Guaifenesin/Dextromethorphan (Robitussin Dm) 15 ml PO Q4H PRN PRN Reason: Cough Dextrose/Water (D5w) 1,000 mls @ 0 mls/hr IV .Q0M PRN PRN Reason: Hypoglycemia Amino Acids/Electrolytes/Dextrose (Clinimix E 4.25/5) 1,000 mls @ 0 mls/hr IV .Q0M [facility] Last Admin: 12/06/17 12:58 Dose: 1,000 mls Insulin Glargine 20 units/ (Miscellaneous Medication) 0.2 mls @ 0 mls/hr SC HS [facility] Last Admin: 12/05/17 20:15 Dose: 0.2 mls Insulin Glargine 10 units/ (Miscellaneous Medication) 0.1 mls @ 0 mls/hr SC QAM [facility] Insulin Human Regular (Humulin R) 0 units [place] .AGGRESSIVE SLIDING PRN PRN Reason: Aggressive Sliding Scale Last Admin: 12/06/17 13:02 Dose: 13 unit Ipratropium [place] (Atrovent) 2.5 ml NEB [id number] [facility] Last Admin: 12/06/17 10:48 Dose: 2.5 ml Levalbuterol HCl (Xopenex Conc) 1.25 mg NEB [id number] [facility] Last Admin: 12/06/17 06:50 Dose: 1.25 mg Losartan Potassium (Cozaar) 25 mg PO DAILY [facility] Last Admin: 12/06/17 09:34 Dose: 25 mg Magnesium Oxide (Magnesium Oxide) 400 mg PO DAILY [facility] Last Admin: 12/06/17 09:34 Dose: 400 mg Metoprolol Tartrate (Lopressor) 50 mg PO DAILY [facility] Last Admin: 12/06/17 09:34 Dose: 50 mg Nystatin (Mycostatin Powder) 0 gm TOP PRN PRN PRN Reason: MASD Ondansetron HCl (Zofran Odt) 4 mg PO Q6H PRN PRN Reason: Nausea/Vomiting Ondansetron HCl (Zofran) 4 mg IVP Q6H PRN PRN Reason: Nausea/Vomiting Last Admin: 11/22/17 11:39 Dose: 4 mg Saccharomyces Boulardii (Florastor) 250 mg PO BID [facility] Last Admin: 12/06/17 09:34 Dose: 250 mg Sodium Chloride (Flush - Normal Saline) 10 ml IVF Q12HR [facility] Last Admin: 12/06/17 09:35 Dose: 10 ml Sodium Chloride (Flush - Normal Saline) 10 ml IVF PRN PRN PRN Reason: Saline Flush Last Admin: 11/23/17 15:14 Dose: 10 ml
[2017-12-06] MEDS ORDERED: Furosemide 40 MG/4 ML VIAL SLOW IVP SCH (15:30)
--- NOTE | 2017-12-06 15:43 | RAD ---
PORTABLE AP CHEST XRAY: DATE: 12/06/17. HISTORY: Pulmonary edema. COMPARISON: 12/04/2017. FINDINGS: Cardiac silhouette is magnified by projection. There are small bilateral pleural effusions with asso ciated atelectasis. There is mild pulmonary vascular congestion as well as increase in perihilar int erstitial densities compared to prior study and which may be related to mild pulmonary edema. There is patchy parenchymal density within the right mid lung zone which could be related to atelectasis or developing pneumonia. Vascular calcification is seen in the thoracic aorta. No other interval beebe ge. IMPRESSION: 1. Small bilateral pleural effusions and atelectasis. 2. Pulmonary vascular congestion with findings suggestive of pulmonary edema. Infectious process ca nnot be entirely excluded, especially in the right mid lung zone and followup is recommended. POS: ANUJ
[2017-12-06] MEDS ORDERED: D5W-AA 4.25% with LYTES 1,000 ML IV SCH (17:00)
--- NOTE | 2017-12-06 17:15 | PDOC.EVN ---
Event Note - Event Note Event Note: 3:15-3:35 PM. Pt reassessed re; tachypnea. Patient is tachypneic, lungs clear. No leucocytosis or fevers. Chest x-ray consistent with volume overload. Pt received two doses of furosemide with slight improvement. Also received 2 mg morphine IV. Will continue IV furosemide and PRN morphine. Discussed with patient's daughter at length. Pt is DNR, family does not want intubation. Family is agreeable with BiPAP. However, pt is lethargic and high risk of aspiration if she vomits while on BiPAP. Family agreeable with managing patient on medical floor with furosemide and PRN morphine. If mentation improves, can consider BiPAP. Will also consult palliative care for emotional support.
[2017-12-06] MEDS: Nystatin Powder 15 GM BOT TOP PRN (17:27)
[2017-12-06] MEDS: Insulin Glargine 20 UNITS in Pre-Filled Syringe 1 EACH SC SCH (20:02)
[2017-12-06] MEDS: Donepezil HCl 5 MG TAB PO SCH (20:04)
[2017-12-07] MEDS: Ipratropium Bromide 2.5 ml Neb NEB SCH ×6 (03:23→22:11)
[2017-12-07] MEDS: D5W-AA 4.25% with LYTES 1,000 ML IV SCH ×3 (03:32→16:47)
[2017-12-07 04:49] LABS: #Eosinphils 0.2 thou/uL (0.0-0.7); #Lymphocytes 2.1 thou/uL (1.20-3.40); #Monocytes 0.9 thou/uL (0.11-0.59); #Neutrophils 7.4 thou/uL (1.40-6.50); %Basophils 0.4 % (0.0-1.0); %Monocytes 8.6 % (0.0-10.0); Hemoglobin 8.4 g/dL (12.0-16.0); Mean Corpuscular Hemoglobin 27.9 pg (27.0-31.0); Mean Platelet Volume 7.9 fL (7.4-10.4); Platelet Count 328 thou/uL (130-400); RBC Distribution Width 14.8 % (11.5-14.5); Red Blood Cell (RBC) Count 3.03 mill/uL (4.20-5.40); White Blood Cell (WBC) Count 10.7 thou/uL (4.8-10.8)
[2017-12-07 05:02] LABS: Anion Gap 12 mmol/L (10-20); BUN (Urea Nitrogen) 22 mg/dL (9.8-20.1); Calc. Creatinine Clearance 85 mL/min (70-130); Calcium 8.9 mg/dL (7.8-10.44); Carbon Dioxide 27 mmol/L (23-31); Chloride 104 mmol/L (98-107); Estimated GFR-MDRD 75; Glucose 356 mg/dL (83-110); Magnesium 1.4 mg/dL (1.6-2.6); Phosphorus 3.2 mg/dL (2.3-4.7); Potassium 3.7 mmol/L (3.5-5.1); Sodium 139 mmol/L (136-145)
[2017-12-07] MEDS: Furosemide 20 MG/2 ML VIAL SLOW IVP SCH ×2 (05:48→14:50)
[2017-12-07] MEDS: Levalbuterol HCl 1.25 MG/0.5 ML NEB NEB SCH ×3 (07:01→22:08)
[2017-12-07] MEDS ORDERED: Insulin Glargine 10 UNITS in Pre-Filled Syringe 1 EACH SC SCH ×2 (09:00→11:00)
[2017-12-07] MEDS: Carbidopa/Levodopa 25-250 mg Tablet PO SCH ×3 (09:20→21:10)
[2017-12-07] MEDS: DULoxetine 30 MG CAP PO SCH (09:20)
[2017-12-07] MEDS: Losartan 25 MG TAB PO SCH (09:20)
[2017-12-07] MEDS: Albumin 25% 25 GM/100 ML BOT IVPB SCH (09:21)
[2017-12-07] MEDS: Metoprolol Tartrate 50 MG TAB PO SCH (09:21)
[2017-12-07] MEDS: Magnesium Oxide 400 MG TAB PO SCH (09:21)
[2017-12-07] MEDS: Famotidine 20 MG TAB PO SCH ×2 (09:21→21:11)
[2017-12-07] MEDS: Ascorbic Acid 500 mg Chewable Tablet PO SCH (09:21)
[2017-12-07] MEDS: Apixaban 5 MG TAB PO SCH ×2 (09:21→21:11)
[2017-12-07] MEDS: Saccharomyces boulardii 250 MG CAP PO SCH ×2 (09:21→21:10)
[2017-12-07] MEDS: Nystatin Powder 15 GM BOT TOP PRN (09:22)
[2017-12-07] MEDS: Insulin Regular 300 UNITS/3 ML VIAL SC PRN ×3 (12:11→23:01)
--- NOTE | 2017-12-07 17:46 | PDOC.PN ---
- Subjective Encounter Start Date: 12/07/17 Encounter Start Time: 08:40 Pt seen for followup re: acute encephalopathy. More alert but not answering questions, could not complete ROS. - Objective Resuscitation Status: Resuscitation Status DNR:Do Not Resuscitate MAR Reviewed: Yes Vital Signs & Weight: Vital Signs (12 hours) Temp Pulse Resp BP Pulse Ox 12/07/17 16:52 98.9 F 79 36 H 133/70 97 12/07/17 13:31 72 18 100 12/07/17 13:21 72 18 100 12/07/17 12:00 96 12/07/17 10:44 104 H 18 98 12/07/17 08:30 98.9 F 95 16 131/69 97 12/07/17 07:03 99 12/07/17 07:01 103 H 22 H 99 12/07/17 06:56 101 H 22 H 99 Weight Admit Weight 187 lb 14.4 oz Weight 187 lb 14.4 oz I&O: 12/06/17 12/07/17 12/08/17 06:59 06:59 06:59 Intake Total 360 2350 1320 Output Total 301 700 Balance 360 2049 620 Result Diagrams: 12/07/17 04:05 12/07/17 04:05 Additional Labs: Accuchecks 12/07/17 12/07/17 12/07/17 16:48 11:54 04:53 POC Glucose 487 H 516 H 334 H 12/06/17 20:31 POC Glucose 401 H labs reviewed by me Phys Exam - Physical Examination Constitutional: NAD HEENT: moist MMs Neck: supple Kurt crackles Cardiovascular: RRR Gastrointestinal: soft Musculoskeletal: edema present Neurological: moves all 4 limbs Psychiatric: normal affect Dx/Plan (1) Metabolic encephalopathy Code(s): G93.41 - METABOLIC ENCEPHALOPATHY Status: Acute Comment: Flucutating mental status, continue furosemide for volume overload (2) Hypertension Code(s): I10 - ESSENTIAL (PRIMARY) HYPERTENSION Status: Chronic Comment: controlled (3) Sacral decubitus ulcer, stage II Code(s): L89.152 - PRESSURE ULCER OF SACRAL REGION, STAGE 2 Status: Chronic (4) UTI due to Klebsiella species Code(s): N39.0 - URINARY TRACT INFECTION, SITE NOT SPECIFIED; B96.1 - KLEBSIELLA PNEUMONIAE THE CAUSE OF DISEASES CLASSD ELSWHR Status: Resolved (5) Aspiration pneumonia Code(s): J69.0 - PNEUMONITIS DUE TO INHALATION OF FOOD AND VOMIT Status: Resolved Comment: off of antibiotics, no fevers - Plan out of bed/ambulate * . Review of Systems - Medications/Allergies Allergies/Adverse Reactions: Allergies Allergy/AdvReac Type Severity Reaction Status Date / Time azithromycin [From Zithromax] Allergy Verified 11/19/17 01:08 cefadroxil [From Duricef] Allergy Verified 11/19/17 01:08 erythromycin base Allergy Verified 11/19/17 01:08 influenza virus vaccine, Allergy Verified 11/19/17 01:08 specific Penicillins Allergy Verified 11/19/17 01:08 Medications: Current Medications Acetaminophen (Tylenol) 650 mg PO Q4H PRN PRN Reason: Headache/Fever or Pain Last Admin: 12/04/17 20:49 Dose: 650 mg Acetaminophen (Tylenol) 650 mg [place] Q4H PRN PRN Reason: Headache/Fever or MILD PAIN Albumin Human (Albumin 25%) 25 gm IVPB DAILY [facility] Stop: 12/08/17 09:01 Last Admin: 12/07/17 09:21 Dose: 25 gm Apixaban (Eliquis) 5 mg PO BID [facility] Last Admin: 12/07/17 09:21 Dose: 5 mg Ascorbic Acid (Vitamin C) 500 mg PO DAILY [facility] Last Admin: 12/07/17 09:21 Dose: 500 mg Bisacodyl (Dulcolax) 10 mg PO DAILYPRN PRN PRN Reason: Constipation Bismuth Subsalicylate (Pepto Bismol) 2 tab PO Q1H PRN PRN Reason: Diarrhea/Loose Stools Carbidopa/Levodopa (Sinemet 25-250) 1 tab PO TID [facility] Last Admin: 12/07/17 14:51 Dose: 1 tab Cholecalciferol (Vitamin D3) 1,000 units PO DAILY [facility] Last Admin: 12/07/17 09:21 Dose: 1,000 units Dextrose/Water (Dextrose 50%) 25 gm SLOW IVP PRN PRN PRN Reason: Hypoglycemia Donepezil HCl (Aricept) 5 mg PO HS [facility] Last Admin: 12/06/17 20:04 Dose: 5 mg Duloxetine HCl (Cymbalta) 30 mg PO DAILY [facility] Last Admin: 12/07/17 09:20 Dose: 30 mg Famotidine (Pepcid) 20 mg PO BID [facility] Last Admin: 12/07/17 09:21 Dose: 20 mg Furosemide (Lasix) 20 mg SLOW IVP 0600,1400 [facility] Last Admin: 12/07/17 14:50 Dose: 20 mg Glucagon (Glucagon) 1 mg IM PRN PRN PRN Reason: Hypoglycemia Guaifenesin/Dextromethorphan (Robitussin Dm) 15 ml PO Q4H PRN PRN Reason: Cough Dextrose/Water (D5w) 1,000 mls @ 0 mls/hr IV .Q0M PRN PRN Reason: Hypoglycemia Amino Acids/Electrolytes/Dextrose (Clinimix E 4.25/5) 1,000 mls @ 72.7 mls/hr IV .[id number] [facility] Last Admin: 12/07/17 16:47 Dose: 1,000 mls Insulin Glargine 20 units/ (Miscellaneous Medication) 0.2 mls @ 0 mls/hr SC HS [facility] Last Admin: 12/06/17 20:02 Dose: 0.2 mls Insulin Glargine 20 units/ (Miscellaneous Medication) 0.2 mls @ 0 mls/hr SC QAM [facility] Insulin Human Regular (Humulin R) 0 units [place] .AGGRESSIVE SLIDING PRN PRN Reason: Aggressive Sliding Scale Last Admin: 12/07/17 17:33 Dose: 13 unit Ipratropium [place] (Atrovent) 2.5 ml NEB [id number] [facility] Last Admin: 12/07/17 13:21 Dose: 2.5 ml Levalbuterol HCl (Xopenex Conc) 1.25 mg NEB [id number] [facility] Last Admin: 12/07/17 13:31 Dose: 1.25 mg Losartan Potassium (Cozaar) 25 mg PO DAILY [facility] Last Admin: 12/07/17 09:20 Dose: 25 mg Magnesium Oxide (Magnesium Oxide) 400 mg PO DAILY [facility] Last Admin: 12/07/17 09:21 Dose: 400 mg Metoprolol Tartrate (Lopressor) 50 mg PO DAILY [facility] Last Admin: 12/07/17 09:21 Dose: 50 mg Morphine Sulfate (Morphine) 2 mg SLOW IVP Q8H PRN PRN Reason: shortness of breath Last Admin: 12/07/17 11:49 Dose: 2 mg Nystatin (Mycostatin Powder) 0 gm TOP PRN PRN PRN Reason: MASD Last Admin: 12/07/17 09:22 Dose: 1 applic Ondansetron HCl (Zofran Odt) 4 mg PO Q6H PRN PRN Reason: Nausea/Vomiting Ondansetron HCl (Zofran) 4 mg IVP Q6H PRN PRN Reason: Nausea/Vomiting Last Admin: 11/22/17 11:39 Dose: 4 mg Saccharomyces Boulardii (Florastor) 250 mg PO BID [facility] Last Admin: 12/07/17 09:21 Dose: 250 mg Sodium Chloride (Flush - Normal Saline) 10 ml IVF Q12HR [facility] Last Admin: 12/07/17 09:22 Dose: 10 ml Sodium Chloride (Flush - Normal Saline) 10 ml IVF PRN PRN PRN Reason: Saline Flush Last Admin: 12/06/17 17:26 Dose: 10 ml
[2017-12-07] MEDS: Donepezil HCl 5 MG TAB PO SCH (21:11)
[2017-12-07] MEDS: Insulin Glargine 20 UNITS in Pre-Filled Syringe 1 EACH SC SCH (23:00)
[2017-12-08] MEDS: Ipratropium Bromide 2.5 ml Neb NEB SCH ×6 (01:47→22:20)
[2017-12-08] MEDS: D5W-AA 4.25% with LYTES 1,000 ML IV SCH ×4 (02:51→13:59)
[2017-12-08 04:35] LABS: #Eosinphils 0.2 thou/uL (0.0-0.7); #Lymphocytes 1.7 thou/uL (1.20-3.40); #Monocytes 0.7 thou/uL (0.11-0.59); #Neutrophils 6.3 thou/uL (1.40-6.50); %Basophils 0.1 % (0.0-1.0); %Eosinophils 2.4 % (0.0-10.0); %Lymphocytes 19.1 % (21.0-51.0); %Monocytes 7.9 % (0.0-10.0); %Neutrophils 70.4 % (42.0-75.0); Hemoglobin 8.2 g/dL (12.0-16.0); Mean Corpuscular HGB CONC 31.8 g/dL (32.0-36.0); Mean Corpuscular Hemoglobin 27.3 pg (27.0-31.0); Mean Corpuscular Volume 85.7 fL (78.0-98.0); Mean Platelet Volume 7.6 fL (7.4-10.4); Platelet Count 287 thou/uL (130-400); RBC Distribution Width 14.7 % (11.5-14.5); Red Blood Cell (RBC) Count 3.02 mill/uL (4.20-5.40); White Blood Cell (WBC) Count 8.9 thou/uL (4.8-10.8)
[2017-12-08 04:50] LABS: Anion Gap 10 mmol/L (10-20); BUN (Urea Nitrogen) 21 mg/dL (9.8-20.1); Calc. Creatinine Clearance 89 mL/min (70-130); Calcium 9.2 mg/dL (7.8-10.44); Carbon Dioxide 30 mmol/L (23-31); Chloride 103 mmol/L (98-107); Estimated GFR-MDRD 80; Glucose 409 mg/dL (83-110); Magnesium 1.4 mg/dL (1.6-2.6); Potassium 3.7 mmol/L (3.5-5.1); Sodium 139 mmol/L (136-145)
[2017-12-08] MEDS: Furosemide 20 MG/2 ML VIAL SLOW IVP SCH ×2 (06:00→13:59)
[2017-12-08] MEDS: Levalbuterol HCl 1.25 MG/0.5 ML NEB NEB SCH ×3 (06:26→22:18)
[2017-12-08] MEDS: Insulin Regular 300 UNITS/3 ML VIAL SC PRN ×3 (06:48→16:58)
[2017-12-08] MEDS: Albumin 25% 25 GM/100 ML BOT IVPB SCH (07:57)
[2017-12-08] MEDS: Famotidine 20 MG TAB PO SCH ×2 (07:58→21:29)
[2017-12-08] MEDS: Carbidopa/Levodopa 25-250 mg Tablet PO SCH ×3 (07:58→21:29)
[2017-12-08] MEDS: Magnesium Oxide 400 MG TAB PO SCH (07:58)
[2017-12-08] MEDS: Losartan 25 MG TAB PO SCH (07:58)
[2017-12-08] MEDS: Apixaban 5 MG TAB PO SCH ×2 (07:58→21:29)
[2017-12-08] MEDS: Metoprolol Tartrate 50 MG TAB PO SCH (07:58)
[2017-12-08] MEDS: DULoxetine 30 MG CAP PO SCH (07:59)
[2017-12-08] MEDS: Saccharomyces boulardii 250 MG CAP PO SCH ×2 (07:59→21:29)
[2017-12-08] MEDS: Ascorbic Acid 500 mg Chewable Tablet PO SCH (07:59)
[2017-12-08] MEDS ORDERED: Insulin Glargine 20 UNITS in Pre-Filled Syringe 1 EACH SC SCH (09:00)
[2017-12-08] MEDS: Insulin Glargine 30 UNITS in Pre-Filled Syringe 1 EACH SC SCH (09:56)
--- NOTE | 2017-12-08 12:40 | PDOC.PN ---
- Subjective Encounter Start Date: 12/08/17 Encounter Start Time: 09:00 Pt seen for followup re: acute encephalopathy. Alert, but unable to answer questions. Did not complete ROS. - Objective Resuscitation Status: Resuscitation Status DNR:Do Not Resuscitate MAR Reviewed: Yes Vital Signs & Weight: Vital Signs (12 hours) Temp Pulse Resp BP Pulse Ox 12/08/17 08:25 98.1 F 101 H 20 145/92 H 96 12/08/17 08:00 96 12/08/17 06:22 103 H 36 H 95 12/08/17 01:47 96 20 96 Weight Admit Weight 187 lb 14.4 oz Weight 187 lb 14.4 oz I&O: 12/07/17 12/08/17 12/09/17 06:59 06:59 06:59 Intake Total 2350 3945 240 Output Total 301 2970 Balance 2049 975 240 Result Diagrams: 12/08/17 04:25 12/08/17 04:25 Additional Labs: Accuchecks 12/08/17 12/08/17 12/07/17 11:06 05:26 21:18 POC Glucose 377 H 388 H 469 H 12/07/17 12/07/17 16:48 11:54 POC Glucose 487 H 516 H Labs reviewed by me Phys Exam - Physical Examination Obese HEENT: moist MMs Neck: supple Kurt crackles Cardiovascular: RRR Gastrointestinal: soft Neurological: moves all 4 limbs Psychiatric: normal affect Dx/Plan (1) Metabolic encephalopathy Code(s): G93.41 - METABOLIC ENCEPHALOPATHY Status: Acute Comment: Flucutating mental status, will continue furosemide (vol overload) (2) Hypertension Code(s): I10 - ESSENTIAL (PRIMARY) HYPERTENSION Status: Chronic Comment: controlled (3) Sacral decubitus ulcer, stage II Code(s): L89.152 - PRESSURE ULCER OF SACRAL REGION, STAGE 2 Status: Chronic (4) UTI due to Klebsiella species Code(s): N39.0 - URINARY TRACT INFECTION, SITE NOT SPECIFIED; B96.1 - KLEBSIELLA PNEUMONIAE THE CAUSE OF DISEASES CLASSD ELSWHR Status: Resolved (5) Aspiration pneumonia Code(s): J69.0 - PNEUMONITIS DUE TO INHALATION OF FOOD AND VOMIT Status: Resolved Comment: off of antibiotics, no fevers - Plan * . Review of Systems - Medications/Allergies Allergies/Adverse Reactions: Allergies Allergy/AdvReac Type Severity Reaction Status Date / Time azithromycin [From Zithromax] Allergy Verified 11/19/17 01:08 cefadroxil [From Duricef] Allergy Verified 11/19/17 01:08 erythromycin base Allergy Verified 11/19/17 01:08 influenza virus vaccine, Allergy Verified 11/19/17 01:08 specific Penicillins Allergy Verified 11/19/17 01:08 Medications: Current Medications Acetaminophen (Tylenol) 650 mg PO Q4H PRN PRN Reason: Headache/Fever or Pain Last Admin: 12/04/17 20:49 Dose: 650 mg Acetaminophen (Tylenol) 650 mg [place] Q4H PRN PRN Reason: Headache/Fever or MILD PAIN Apixaban (Eliquis) 5 mg PO BID [facility] Last Admin: 12/08/17 07:58 Dose: 5 mg Ascorbic Acid (Vitamin C) 500 mg PO DAILY [facility] Last Admin: 12/08/17 07:59 Dose: 500 mg Bisacodyl (Dulcolax) 10 mg PO DAILYPRN PRN PRN Reason: Constipation Bismuth Subsalicylate (Pepto Bismol) 2 tab PO Q1H PRN PRN Reason: Diarrhea/Loose Stools Carbidopa/Levodopa (Sinemet 25-250) 1 tab PO TID [facility] Last Admin: 12/08/17 07:58 Dose: 1 tab Cholecalciferol (Vitamin D3) 1,000 units PO DAILY [facility] Last Admin: 12/08/17 07:59 Dose: 1,000 units Dextrose/Water (Dextrose 50%) 25 gm SLOW IVP PRN PRN PRN Reason: Hypoglycemia Donepezil HCl (Aricept) 5 mg PO HS [facility] Last Admin: 12/07/17 21:11 Dose: 5 mg Duloxetine HCl (Cymbalta) 30 mg PO DAILY [facility] Last Admin: 12/08/17 07:59 Dose: 30 mg Famotidine (Pepcid) 20 mg PO BID [facility] Last Admin: 12/08/17 07:58 Dose: 20 mg Furosemide (Lasix) 20 mg SLOW IVP 0600,1400 [facility] Last Admin: 12/08/17 06:00 Dose: 20 mg Glucagon (Glucagon) 1 mg IM PRN PRN PRN Reason: Hypoglycemia Guaifenesin/Dextromethorphan (Robitussin Dm) 15 ml PO Q4H PRN PRN Reason: Cough Dextrose/Water (D5w) 1,000 mls @ 0 mls/hr IV .Q0M PRN PRN Reason: Hypoglycemia Amino Acids/Electrolytes/Dextrose (Clinimix E 4.25/5) 1,000 mls @ 72.7 mls/hr IV .[id number] [facility] Last Admin: 12/08/17 11:30 Dose: Not Given Insulin Glargine 30 units/ (Miscellaneous Medication) 0.3 mls @ 0 mls/hr SC HS [facility] Insulin Glargine 30 units/ (Miscellaneous Medication) 0.3 mls @ 0 mls/hr SC QAM [facility] Last Admin: 12/08/17 09:56 Dose: 0.3 mls Insulin Human Regular (Humulin R) 0 units [place] .AGGRESSIVE SLIDING PRN PRN Reason: Aggressive Sliding Scale Last Admin: 12/08/17 11:33 Dose: 13 unit Ipratropium [place] (Atrovent) 2.5 ml NEB [id number] [facility] Last Admin: 12/08/17 10:08 Dose: 2.5 ml Levalbuterol HCl (Xopenex Conc) 1.25 mg NEB [id number] [facility] Last Admin: 12/08/17 06:26 Dose: 1.25 mg Losartan Potassium (Cozaar) 25 mg PO DAILY [facility] Last Admin: 12/08/17 07:58 Dose: 25 mg Magnesium Oxide (Magnesium Oxide) 400 mg PO DAILY [facility] Last Admin: 12/08/17 07:58 Dose: 400 mg Metoprolol Tartrate (Lopressor) 50 mg PO DAILY [facility] Last Admin: 12/08/17 07:58 Dose: 50 mg Morphine Sulfate (Morphine) 2 mg SLOW IVP Q8H PRN PRN Reason: shortness of breath Last Admin: 12/07/17 21:40 Dose: 2 mg Nystatin (Mycostatin Powder) 0 gm TOP PRN PRN PRN Reason: MASD Last Admin: 12/07/17 09:22 Dose: 1 applic Ondansetron HCl (Zofran Odt) 4 mg PO Q6H PRN PRN Reason: Nausea/Vomiting Ondansetron HCl (Zofran) 4 mg IVP Q6H PRN PRN Reason: Nausea/Vomiting Last Admin: 11/22/17 11:39 Dose: 4 mg Saccharomyces Boulardii (Florastor) 250 mg PO BID [facility] Last Admin: 12/08/17 07:59 Dose: 250 mg Sodium Chloride (Flush - Normal Saline) 10 ml IVF Q12HR [facility] Last Admin: 12/08/17 07:59 Dose: 10 ml Sodium Chloride (Flush - Normal Saline) 10 ml IVF PRN PRN PRN Reason: Saline Flush Last Admin: 12/08/17 06:03 Dose: 10 ml
[2017-12-08] MEDS ORDERED: Insulin Glargine 30 UNITS in Pre-Filled Syringe 1 EACH SC SCH (21:00)
[2017-12-08] MEDS: Donepezil HCl 5 MG TAB PO SCH (21:29)
[2017-12-08] MEDS ORDERED: hydrALAZINE 20 MG/ML VIAL SLOW IVP PRN (22:37)
[2017-12-08] MEDS: Acetaminophen 325 MG TAB PO PRN (22:38)
[2017-12-08] MEDS ORDERED: Labetalol HCl 100 MG/20 ML VIAL SLOW IVP SCH (22:45)
[2017-12-09] MEDS: Ipratropium Bromide 2.5 ml Neb NEB SCH ×2 (02:24→07:43)
[2017-12-09] MEDS: Acetaminophen 650 MG Suppository PR PRN (04:06)
[2017-12-09] MEDS: D5W-AA 4.25% with LYTES 1,000 ML IV SCH (04:42)
[2017-12-09] MEDS ORDERED: Morphine 4 MG/ML VIAL IV PRN (06:21)
[2017-12-09] MEDS: Furosemide 20 MG/2 ML VIAL SLOW IVP SCH ×2 (06:39→15:09)
[2017-12-09] MEDS: Insulin Regular 300 UNITS/3 ML VIAL SC PRN ×4 (06:40→21:31)
[2017-12-09] MEDS: Levalbuterol HCl 1.25 MG/0.5 ML NEB NEB SCH (07:43)
[2017-12-09] MEDS: Metoprolol Tartrate 50 MG TAB PO SCH (09:44)
[2017-12-09] MEDS: Ascorbic Acid 500 mg Chewable Tablet PO SCH (09:44)
[2017-12-09] MEDS: Apixaban 5 MG TAB PO SCH ×2 (09:44→20:18)
[2017-12-09] MEDS: DULoxetine 30 MG CAP PO SCH (09:44)
[2017-12-09] MEDS: Saccharomyces boulardii 250 MG CAP PO SCH ×2 (09:44→20:19)
[2017-12-09] MEDS: Carbidopa/Levodopa 25-250 mg Tablet PO SCH ×3 (09:44→20:18)
[2017-12-09] MEDS: Famotidine 20 MG TAB PO SCH ×2 (09:44→20:18)
[2017-12-09] MEDS: Losartan 25 MG TAB PO SCH (09:44)
[2017-12-09] MEDS: Magnesium Oxide 400 MG TAB PO SCH (09:45)
[2017-12-09] MEDS: Insulin Glargine 30 UNITS in Pre-Filled Syringe 1 EACH SC SCH (10:58)
[2017-12-09 12:34] LABS: Bilirubin Negative (Negative); Blood, Urine Small (Negative); Clarity TURBID (Clear); Glucose, Urine (Dipstick) Negative (Negative); Leukocyte Large (Negative); Nitrite Negative (Negative); Protein, Urine (Dipstick) 30 mg/dL (Neg-Trace); Specific Gravity, Urine 1.015 (1.002-1.036); Urobilinogen 0.2 mg/dL (0.2-1.0)
[2017-12-09 12:40] LABS: Bacteria/HPF None Seen HPF (None Seen); Squamous Epithelial 0-3 HPF (0-3)
[2017-12-09 12:44] LABS: Pathc Cast-AUWi Flag 2.54 (0-2.49); Yeast-AUWi Flag 574.8 (0-25.0)
[2017-12-09 12:52] LABS: Yeast-All Forms 2+ HPF (None Seen)
[2017-12-09 12:53] LABS: Hyaline Casts/LPF NONE SEEN LPF (0-3 Hyaline); Other Casts/LPF None Seen LPF (0-3 Hyaline)
--- NOTE | 2017-12-09 19:16 | PDOC.PN ---
- Subjective Encounter Start Date: 12/09/17 Encounter Start Time: 10:00 Subjective: pt up in bed appears lethargic - Objective Resuscitation Status: Resuscitation Status DNR:Do Not Resuscitate Vital Signs & Weight: Vital Signs (12 hours) Temp Pulse Resp BP Pulse Ox 12/09/17 18:08 101 H 20 96 12/09/17 16:00 98.0 F 89 32 H 153/82 H 98 12/09/17 14:48 89 18 99 12/09/17 13:02 98.0 F 87 30 H 96/50 L 97 12/09/17 10:48 103 H 22 H 96 12/09/17 08:00 98.1 F 103 H 38 H 133/67 96 12/09/17 07:44 96 12/09/17 07:40 102 H 24 H 96 Weight Admit Weight 187 lb 14.4 oz Weight 187 lb 14.4 oz I&O: 12/08/17 12/09/17 12/10/17 06:59 06:59 06:59 Intake Total 3945 600 1408 Output Total 2970 403 Balance 603 461 0465 Result Diagrams: 12/08/17 04:25 12/08/17 04:25 Additional Labs: Accuchecks 12/09/17 12/09/17 12/09/17 16:35 11:48 05:07 POC Glucose 254 H 240 H 337 H 12/08/17 20:23 POC Glucose 305 H Phys Exam - Physical Examination Neck: no nodes, no JVD, supple, full ROM Respiratory: no wheezing, no rales, no rhonchi, wheezing present, clear to auscultation bilateral Cardiovascular: RRR, no significant murmur, no rub, gallop, irregular Gastrointestinal: soft, non-tender, no distention, positive bowel sounds pt easily arousable Dx/Plan (1) Metabolic encephalopathy Code(s): G93.41 - METABOLIC ENCEPHALOPATHY Status: Acute Comment: Flucutating mental status, will continue furosemide (vol overload) (2) UTI (urinary tract infection) Status: Acute (3) Anasarca Code(s): R60.1 - GENERALIZED EDEMA Status: Acute Comment: Low albumin levels and immobility through recent illnesses. Has generalized edema, especially in UE's. On Eliquis and thrombus unlikely. Daily mild diuresis. (4) Aspiration pneumonia Code(s): J69.0 - PNEUMONITIS DUE TO INHALATION OF FOOD AND VOMIT Status: Acute (5) Physical deconditioning Code(s): R53.81 - OTHER MALAISE Status: Acute Comment: PT Consult. (6) Hypomagnesemia Code(s): E83.42 - HYPOMAGNESEMIA Status: Acute (7) Malnutrition of moderate degree Code(s): E44.0 - MODERATE PROTEIN-CALORIE MALNUTRITION Status: Acute - Plan spoke with pt's son about her being lethargic and not improving -: she did spike a fever last night, will get ua and blood cx -: she was given morphine last night will hold all narcotics for now -: family states she ate well yestarday but nothing today. -: she is on ppn but she is not eating much. * if her mentation does not improve will talk to family about possible hospice. I did explain to son that pt has edema since she is not eating much and diuretics will only help so much. i will observe her overnight and if her mentation does not improve will talk to family about hospice. Review of Systems - Review of Systems Other: unable to do due to pt's mentation - Medications/Allergies Allergies/Adverse Reactions: Allergies Allergy/AdvReac Type Severity Reaction Status Date / Time azithromycin [From Zithromax] Allergy Verified 11/19/17 01:08 cefadroxil [From Duricef] Allergy Verified 11/19/17 01:08 erythromycin base Allergy Verified 11/19/17 01:08 influenza virus vaccine, Allergy Verified 11/19/17 01:08 specific Penicillins Allergy Verified 11/19/17 01:08 Medications: Current Medications Acetaminophen (Tylenol) 650 mg PO Q4H PRN PRN Reason: Headache/Fever or Pain Last Admin: 12/08/17 22:38 Dose: 650 mg Acetaminophen (Tylenol) 650 mg HI Q4H PRN PRN Reason: Headache/Fever or MILD PAIN Last Admin: 12/09/17 04:06 Dose: 650 mg Albuterol/Ipratropium (Duoneb) 3 ml NEB [id number] SANDI Last Admin: 12/09/17 18:08 Dose: 3 ml Apixaban (Eliquis) 5 mg PO BID [facility]I Last Admin: 12/09/17 09:44 Dose: 5 mg Ascorbic Acid (Vitamin C) 500 mg PO DAILY [facility] Last Admin: 12/09/17 09:44 Dose: 500 mg Bisacodyl (Dulcolax) 10 mg PO DAILYPRN PRN PRN Reason: Constipation Bismuth Subsalicylate (Pepto Bismol) 2 tab PO Q1H PRN PRN Reason: Diarrhea/Loose Stools Carbidopa/Levodopa (Sinemet 25-250) 1 tab PO TID [facility] Last Admin: 12/09/17 15:10 Dose: 1 tab Cholecalciferol (Vitamin D3) 1,000 units PO DAILY [facility] Last Admin: 12/09/17 09:44 Dose: 1,000 units Dextrose/Water (Dextrose 50%) 25 gm SLOW IVP PRN PRN PRN Reason: Hypoglycemia Donepezil HCl (Aricept) 5 mg PO HS [facility] Last Admin: 12/08/17 21:29 Dose: 5 mg Duloxetine HCl (Cymbalta) 30 mg PO DAILY [facility] Last Admin: 12/09/17 09:44 Dose: 30 mg Famotidine (Pepcid) 20 mg PO BID [facility] Last Admin: 12/09/17 09:44 Dose: 20 mg Furosemide (Lasix) 20 mg SLOW IVP 0600,1400 [facility] Last Admin: 12/09/17 15:09 Dose: 20 mg Glucagon (Glucagon) 1 mg IM PRN PRN PRN Reason: Hypoglycemia Guaifenesin/Dextromethorphan (Robitussin Dm) 15 ml PO Q4H PRN PRN Reason: Cough Hydralazine HCl (Apresoline) 10 mg SLOW IVP Q6H PRN PRN Reason: SBP > 180 Last Admin: 12/09/17 00:56 Dose: 10 mg Dextrose/Water (D5w) 1,000 mls @ 0 mls/hr IV .Q0M PRN PRN Reason: Hypoglycemia Amino Acids/Electrolytes/Dextrose (Clinimix E 4.25/5) 1,000 mls @ 42 mls/hr IV .[id number] [facility] Last Admin: 12/09/17 04:42 Dose: 1,000 mls Insulin Glargine 35 units/ (Miscellaneous Medication) 0.35 mls @ 0 mls/hr SC [facility] Insulin Glargine 35 units/ (Miscellaneous Medication) 0.35 mls @ 0 mls/hr SC QAM [facility] Insulin Human Regular (Humulin R) 0 units SC .AGGRESSIVE SLIDING PRN PRN Reason: Aggressive Sliding Scale Last Admin: 12/09/17 18:15 Dose: 9 unit Losartan Potassium (Cozaar) 25 mg PO DAILY [facility] Last Admin: 12/09/17 09:44 Dose: 25 mg Magnesium Oxide (Magnesium Oxide) 400 mg PO DAILY [facility] Last Admin: 12/09/17 09:45 Dose: 400 mg Metoprolol Tartrate (Lopressor) 50 mg PO DAILY [facility] Last Admin: 12/09/17 09:44 Dose: 50 mg Nystatin (Mycostatin Powder) 0 gm TOP PRN PRN PRN Reason: MASD Last Admin: 12/07/17 09:22 Dose: 1 applic Ondansetron HCl (Zofran Odt) 4 mg PO Q6H PRN PRN Reason: Nausea/Vomiting Ondansetron HCl (Zofran) 4 mg IVP Q6H PRN PRN Reason: Nausea/Vomiting Last Admin: 11/22/17 11:39 Dose: 4 mg Saccharomyces Boulardii (Florastor) 250 mg PO BID [facility] Last Admin: 12/09/17 09:44 Dose: 250 mg Sodium Chloride (Flush - Normal Saline) 10 ml IVF Q12HR [facility] Last Admin: 12/09/17 10:58 Dose: 10 ml Sodium Chloride (Flush - Normal Saline) 10 ml IVF PRN PRN PRN Reason: Saline Flush Last Admin: 12/08/17 06:03 Dose: 10 ml
[2017-12-09] MEDS ORDERED: cefTRIAXone Sodium 2 MG in Syringe 0 ML IVPB SCH (19:30)
[2017-12-09] MEDS: Donepezil HCl 5 MG TAB PO SCH (20:18)
[2017-12-09] MEDS: Insulin Glargine 35 UNITS in Pre-Filled Syringe 1 EACH SC SCH (21:30)
[2017-12-10] MEDS: D5W-AA 4.25% with LYTES 1,000 ML IV SCH (04:27)
[2017-12-10] MEDS: Furosemide 20 MG/2 ML VIAL SLOW IVP SCH ×2 (05:46→15:49)
[2017-12-10 05:56] LABS: #Eosinphils 0.2 thou/uL (0.0-0.7); #Lymphocytes 1.9 thou/uL (1.20-3.40); #Neutrophils 8.8 thou/uL (1.40-6.50); %Basophils 0.1 % (0.0-1.0); %Eosinophils 1.5 % (0.0-10.0); %Lymphocytes 15.8 % (21.0-51.0); %Monocytes 8.4 % (0.0-10.0); %Neutrophils 74.2 % (42.0-75.0); Mean Corpuscular HGB CONC 32.5 g/dL (32.0-36.0); Mean Corpuscular Hemoglobin 27.9 pg (27.0-31.0); Mean Corpuscular Volume 85.9 fL (78.0-98.0); Platelet Count 301 thou/uL (130-400); RBC Distribution Width 15.1 % (11.5-14.5); Red Blood Cell (RBC) Count 3.23 mill/uL (4.20-5.40); White Blood Cell (WBC) Count 11.8 thou/uL (4.8-10.8)
[2017-12-10 06:14] LABS: Anion Gap 12 mmol/L (10-20); BUN (Urea Nitrogen) 22 mg/dL (9.8-20.1); Calc. Creatinine Clearance 87 mL/min (70-130); Carbon Dioxide 28 mmol/L (23-31); Chloride 104 mmol/L (98-107); Estimated GFR-MDRD 77; Glucose 174 mg/dL (83-110); Magnesium 1.3 mg/dL (1.6-2.6); Phosphorus 3.4 mg/dL (2.3-4.7); Potassium 3.7 mmol/L (3.5-5.1); Sodium 140 mmol/L (136-145)
--- NOTE | 2017-12-10 07:58 | RAD ---
SINGLE VIEW CHEST: Date: 12/10/17 COMPARISON: 12/04/17. HISTORY: Shortness of breath. FINDINGS: Single view of the chest shows an enlarged but stable cardiomediastinal silhouette with atherosclerot ic calcifications in the aorta. There is no evidence of consolidation, mass, or pleural effusion. IMPRESSION: No evidence of acute cardiopulmonary disease. POS: CET
[2017-12-10] MEDS: Acetaminophen 650 MG Suppository PR PRN ×2 (08:06→20:53)
[2017-12-10] MEDS: Saccharomyces boulardii 250 MG CAP PO SCH ×2 (08:15→20:53)
[2017-12-10] MEDS: Famotidine 20 MG TAB PO SCH ×2 (08:15→20:53)
[2017-12-10] MEDS: Apixaban 5 MG TAB PO SCH ×2 (08:15→20:53)
[2017-12-10] MEDS: Losartan 25 MG TAB PO SCH (08:15)
[2017-12-10] MEDS: Metoprolol Tartrate 50 MG TAB PO SCH (08:15)
[2017-12-10] MEDS: Magnesium Oxide 400 MG TAB PO SCH (08:15)
[2017-12-10] MEDS: DULoxetine 30 MG CAP PO SCH (08:15)
[2017-12-10] MEDS: Carbidopa/Levodopa 25-250 mg Tablet PO SCH ×3 (08:16→20:53)
[2017-12-10] MEDS: Ascorbic Acid 500 mg Chewable Tablet PO SCH (08:16)
[2017-12-10] MEDS: Insulin Glargine 35 UNITS in Pre-Filled Syringe 1 EACH SC SCH ×2 (09:23→21:37)
[2017-12-10] MEDS: Insulin Regular 300 UNITS/3 ML VIAL SC PRN ×2 (12:13→17:43)
--- NOTE | 2017-12-10 14:30 | PDOC.PN ---
- Subjective Encounter Start Date: 12/10/17 Encounter Start Time: 10:30 Subjective: pt up in bed more awake - Objective Resuscitation Status: Resuscitation Status DNR:Do Not Resuscitate Vital Signs & Weight: Vital Signs (12 hours) Temp Pulse Resp BP Pulse Ox 12/10/17 13:53 95 32 H 96 12/10/17 11:25 100.1 F H 95 28 H 132/76 96 12/10/17 09:43 99 18 97 12/10/17 09:00 101.0 F H 121 H 26 H 128/73 94 L 12/10/17 08:00 94 L 12/10/17 07:01 114 H 18 98 12/10/17 04:39 99 F 114 H 20 144/61 H 97 Weight Admit Weight 187 lb 14.4 oz Weight 187 lb 14.4 oz I&O: 12/09/17 12/10/17 12/11/17 06:59 06:59 06:59 Intake Total 600 1408 Output Total 403 Balance 600 1005 Result Diagrams: 12/10/17 04:56 12/10/17 04:56 Additional Labs: Accuchecks 12/10/17 12/10/17 12/09/17 11:29 05:48 20:51 POC Glucose 270 H 187 H 219 H 12/09/17 16:35 POC Glucose 254 H Phys Exam - Physical Examination Respiratory: no wheezing, no rales, no rhonchi, wheezing present, clear to auscultation bilateral Cardiovascular: RRR, no significant murmur, no rub, gallop, irregular Gastrointestinal: soft, non-tender, no distention, positive bowel sounds Musculoskeletal: no edema, pulses present, edema present awake oriented x1 Dx/Plan (1) Metabolic encephalopathy Code(s): G93.41 - METABOLIC ENCEPHALOPATHY Status: Acute Comment: Flucutating mental status, will continue furosemide (vol overload) (2) UTI (urinary tract infection) Status: Acute (3) Anasarca Code(s): R60.1 - GENERALIZED EDEMA Status: Acute Comment: Low albumin levels and immobility through recent illnesses. Has generalized edema, especially in UE's. On Eliquis and thrombus unlikely. Daily mild diuresis. (4) Aspiration pneumonia Code(s): J69.0 - PNEUMONITIS DUE TO INHALATION OF FOOD AND VOMIT Status: Acute (5) Physical deconditioning Code(s): R53.81 - OTHER MALAISE Status: Acute Comment: PT Consult. (6) Hypomagnesemia Code(s): E83.42 - HYPOMAGNESEMIA Status: Acute (7) Malnutrition of moderate degree Code(s): E44.0 - MODERATE PROTEIN-CALORIE MALNUTRITION Status: Acute - Plan pt's cxr no acute process -: no bacteria on UA, cx pending will start abx -: she is on ppn and not eating much -: will see how she does today. blood cx negative * . spoke with daughter and son at different times about her overall poor prognosis. Pt is not eating and i did talk about hospice but son wants to give her bit more time and has been avoiding the hospice topic. She is on antidepressant and was on appetite stimulant but it did not work for her since she started to become delirious. Review of Systems - Review of Systems Other: unable to do - Medications/Allergies Allergies/Adverse Reactions: Allergies Allergy/AdvReac Type Severity Reaction Status Date / Time azithromycin [From Zithromax] Allergy Verified 11/19/17 01:08 cefadroxil [From Duricef] Allergy Verified 11/19/17 01:08 erythromycin base Allergy Verified 11/19/17 01:08 influenza virus vaccine, Allergy Verified 11/19/17 01:08 specific Penicillins Allergy Verified 11/19/17 01:08 Medications: Current Medications Acetaminophen (Tylenol) 650 mg PO Q4H PRN PRN Reason: Headache/Fever or Pain Last Admin: 12/08/17 22:38 Dose: 650 mg Acetaminophen (Tylenol) 650 mg [place] Q4H PRN PRN Reason: Headache/Fever or MILD PAIN Last Admin: 12/10/17 08:06 Dose: 650 mg Albuterol/Ipratropium (Duoneb) 3 ml NEB [id number] [facility]ANDI Last Admin: 12/10/17 13:53 Dose: 3 ml Apixaban (Eliquis) 5 mg PO BID [facility] Last Admin: 12/10/17 08:15 Dose: 5 mg Ascorbic Acid (Vitamin C) 500 mg PO DAILY [facility] Last Admin: 12/10/17 08:16 Dose: 500 mg Bisacodyl (Dulcolax) 10 mg PO DAILYPRN PRN PRN Reason: Constipation Bismuth Subsalicylate (Pepto Bismol) 2 tab PO Q1H PRN PRN Reason: Diarrhea/Loose Stools Carbidopa/Levodopa (Sinemet 25-250) 1 tab PO TID [facility] Last Admin: 12/10/17 08:16 Dose: 1 tab Cholecalciferol (Vitamin D3) 1,000 units PO DAILY [facility] Last Admin: 12/10/17 08:16 Dose: 1,000 units Dextrose/Water (Dextrose 50%) 25 gm SLOW IVP PRN PRN PRN Reason: Hypoglycemia Donepezil HCl (Aricept) 5 mg PO [facility] Last Admin: 12/09/17 20:18 Dose: 5 mg Duloxetine HCl (Cymbalta) 30 mg PO DAILY [facility] Last Admin: 12/10/17 08:15 Dose: 30 mg Famotidine (Pepcid) 20 mg PO BID [facility] Last Admin: 12/10/17 08:15 Dose: 20 mg Furosemide (Lasix) 20 mg SLOW IVP 0600,1400 [facility] Last Admin: 12/10/17 05:46 Dose: 20 mg Glucagon (Glucagon) 1 mg IM PRN PRN PRN Reason: Hypoglycemia Guaifenesin/Dextromethorphan (Robitussin Dm) 15 ml PO Q4H PRN PRN Reason: Cough Hydralazine HCl (Apresoline) 10 mg SLOW IVP Q6H PRN PRN Reason: SBP > 180 Last Admin: 12/09/17 00:56 Dose: 10 mg Dextrose/Water (D5w) 1,000 mls @ 0 mls/hr IV .Q0M PRN PRN Reason: Hypoglycemia Amino Acids/Electrolytes/Dextrose (Clinimix E 4.25/5) 1,000 mls @ 42 mls/hr IV .[id number] [facility] Last Admin: 12/10/17 04:27 Dose: 1,000 mls Insulin Glargine 35 units/ (Miscellaneous Medication) 0.35 mls @ 0 mls/hr SC [facility] Last Admin: 12/09/17 21:30 Dose: Not Given Insulin Glargine 35 units/ (Miscellaneous Medication) 0.35 mls @ 0 mls/hr SC QAM [facility] Last Admin: 12/10/17 09:23 Dose: 0.35 mls Levofloxacin 500 mg/ Device 100 mls @ 100 mls/hr IVPB 2000 [facility] Last Admin: 12/09/17 20:18 Dose: 100 mls Insulin Human Regular (Humulin R) 0 units SC .AGGRESSIVE SLIDING PRN PRN Reason: Aggressive Sliding Scale Last Admin: 12/10/17 12:13 Dose: 9 unit Losartan Potassium (Cozaar) 25 mg PO DAILY [facility] Last Admin: 12/10/17 08:15 Dose: 25 mg Magnesium Oxide (Magnesium Oxide) 400 mg PO DAILY [facility] Last Admin: 12/10/17 08:15 Dose: 400 mg Metoprolol Tartrate (Lopressor) 50 mg PO DAILY [facility] Last Admin: 12/10/17 08:15 Dose: 50 mg Nystatin (Mycostatin Powder) 0 gm TOP PRN PRN PRN Reason: MASD Last Admin: 12/07/17 09:22 Dose: 1 applic Ondansetron HCl (Zofran Odt) 4 mg PO Q6H PRN PRN Reason: Nausea/Vomiting Ondansetron HCl (Zofran) 4 mg IVP Q6H PRN PRN Reason: Nausea/Vomiting Last Admin: 11/22/17 11:39 Dose: 4 mg Saccharomyces Boulardii (Florastor) 250 mg PO BID [facility] Last Admin: 12/10/17 08:15 Dose: 250 mg Sodium Chloride (Flush - Normal Saline) 10 ml IVF Q12HR [facility] Last Admin: 12/10/17 08:16 Dose: 10 ml Sodium Chloride (Flush - Normal Saline) 10 ml IVF PRN PRN PRN Reason: Saline Flush Last Admin: 12/08/17 06:03 Dose: 10 ml
[2017-12-10] MEDS: Donepezil HCl 5 MG TAB PO SCH (20:53)
[2017-12-11] MEDS: D5W-AA 4.25% with LYTES 1,000 ML IV SCH (04:34)
[2017-12-11] MEDS: Furosemide 20 MG/2 ML VIAL SLOW IVP SCH ×2 (05:10→15:07)
[2017-12-11] MEDS: Acetaminophen 650 MG Suppository PR PRN (06:26)
--- NOTE | 2017-12-11 09:56 | RAD ---
MODIFIED BARIUM SWALLOW: Date: 11-29-17 Provided Clinical History: Evidence for aspiration. FINDINGS: Multiple consistencies of oral barium were administered by the speech pathologist with video fluorosc opy performed. Premature spillage of contrast material into the valleculae and pyriform sinuses with evidence for penetration with most consistencies. Aspiration was noted with cough reflex with thin li quids. IMPRESSION: Please see speech therapy consultation for full details. POS: ANUJ
[2017-12-11 10:40] LABS: Band 16 % (5-11); Hemoglobin 9.3 g/dL (12.0-16.0); Lymphocytes 7 % (21-51); MDiff Complete? YES; Mean Corpuscular HGB CONC 31.4 g/dL (32.0-36.0); Mean Corpuscular Volume 86.2 fL (78.0-98.0); Mean Platelet Volume 7.8 fL (7.4-10.4); Monocytes 6 % (0-10); Neutrophil 71 % (42-75); PLT Morphology Comment Appears Adequate; Platelet Count 273 thou/uL (130-400); Polychromasia SLIGHT = 2-3 cells (100X) (0-2/hpf); RBC Distribution Width 15.2 % (11.5-14.5); Red Blood Cell (RBC) Count 3.45 mill/uL (4.20-5.40); White Blood Cell (WBC) Count 18.6 thou/uL (4.8-10.8)
[2017-12-11] MEDS: Ascorbic Acid 500 mg Chewable Tablet PO SCH (11:46)
[2017-12-11] MEDS: Apixaban 5 MG TAB PO SCH ×2 (11:46→19:58)
[2017-12-11] MEDS: Famotidine 20 MG TAB PO SCH ×2 (11:46→19:58)
[2017-12-11] MEDS: DULoxetine 30 MG CAP PO SCH (11:46)
[2017-12-11] MEDS: Losartan 25 MG TAB PO SCH (11:47)
[2017-12-11] MEDS: Insulin Glargine 35 UNITS in Pre-Filled Syringe 1 EACH SC SCH ×2 (11:47→20:10)
[2017-12-11] MEDS: Magnesium Oxide 400 MG TAB PO SCH (11:47)
[2017-12-11] MEDS: Metoprolol Tartrate 50 MG TAB PO SCH (11:47)
[2017-12-11] MEDS: Carbidopa/Levodopa 25-250 mg Tablet PO SCH ×3 (11:48→19:59)
[2017-12-11] MEDS: Saccharomyces boulardii 250 MG CAP PO SCH ×2 (11:48→19:58)
[2017-12-11] MEDS: Acetaminophen 325 MG TAB PO PRN ×3 (11:59→20:57)
--- NOTE | 2017-12-11 13:40 | PDOC.PN ---
- Subjective Encounter Start Date: 12/11/17 Encounter Start Time: 11:30 Subjective: pt awake in bed, spiked a temp - Objective Resuscitation Status: Resuscitation Status DNR:Do Not Resuscitate Vital Signs & Weight: Vital Signs (12 hours) Temp Pulse Resp BP Pulse Ox 12/11/17 10:25 121 H 28 H 98 12/11/17 08:22 102.1 F H 124 H 30 H 138/61 90 L 12/11/17 06:09 110 H 24 H 97 12/11/17 03:53 99.9 F H 107 H 20 132/76 97 12/11/17 02:24 118 H 20 96 Weight Admit Weight 187 lb 14.4 oz Weight 187 lb 14.4 oz I&O: 12/10/17 12/11/17 12/12/17 06:59 06:59 06:59 Intake Total 1408 1253 Output Total 403 3 Balance 1005 1250 Result Diagrams: 12/11/17 09:31 12/10/17 04:56 Additional Labs: Accuchecks 12/11/17 12/11/17 12/10/17 11:05 06:19 20:23 POC Glucose 247 H 189 H 202 H 12/10/17 16:42 POC Glucose 258 H Phys Exam - Physical Examination Neck: no nodes, no JVD, supple, full ROM Respiratory: no wheezing, no rales, no rhonchi, wheezing present, clear to auscultation bilateral Cardiovascular: RRR, no significant murmur, no rub, gallop, irregular Gastrointestinal: soft, non-tender, no distention, positive bowel sounds mild edema all over Dx/Plan (1) Metabolic encephalopathy Code(s): G93.41 - METABOLIC ENCEPHALOPATHY Status: Acute Comment: Flucutating mental status, will continue furosemide (vol overload) (2) UTI (urinary tract infection) Status: Acute (3) Anasarca Code(s): R60.1 - GENERALIZED EDEMA Status: Acute Comment: Low albumin levels and immobility through recent illnesses. Has generalized edema, especially in UE's. On Eliquis and thrombus unlikely. Daily mild diuresis. (4) Aspiration pneumonia Code(s): J69.0 - PNEUMONITIS DUE TO INHALATION OF FOOD AND VOMIT Status: Acute (5) Physical deconditioning Code(s): R53.81 - OTHER MALAISE Status: Acute Comment: PT Consult. (6) Hypomagnesemia Code(s): E83.42 - HYPOMAGNESEMIA Status: Acute (7) Malnutrition of moderate degree Code(s): E44.0 - MODERATE PROTEIN-CALORIE MALNUTRITION Status: Acute (8) Fever Code(s): R50.9 - FEVER, UNSPECIFIED Status: Acute Comment: Kristopher low grade fever last night. Will recheck UA and CXR. Will not discharge today. Continue to monitor temp. - Plan pt had temp today and elevated wbc of 18,000. -: No clear source, ua not impressive, blood cx neg, cxr no acute process -: will consult ID, will also check fungal cx, esr and crp -: she has no diarrhea and has been tx for aspiration pna and uti -: will start her on broad abx * . spoke with son who states he feels like every time she spikes a fever she declines and does not eat. He feels when she is afebrile she is more active and has an appetite. He wants to find the source of infection and why she is having fever before sending her to hospice. I did tell him will hold off on steroids for stimulating appetite due to her recent infection. Review of Systems - Review of Systems Other: unable to perform - Medications/Allergies Allergies/Adverse Reactions: Allergies Allergy/AdvReac Type Severity Reaction Status Date / Time azithromycin [From Zithromax] Allergy Verified 11/19/17 01:08 cefadroxil [From Duricef] Allergy Verified 11/19/17 01:08 erythromycin base Allergy Verified 11/19/17 01:08 influenza virus vaccine, Allergy Verified 11/19/17 01:08 specific Penicillins Allergy Verified 11/19/17 01:08 Medications: Current Medications Acetaminophen (Tylenol) 650 mg PO Q4H PRN PRN Reason: Headache/Fever or Pain Last Admin: 12/11/17 11:59 Dose: 650 mg Acetaminophen (Tylenol) 650 mg ND Q4H PRN PRN Reason: Headache/Fever or MILD PAIN Last Admin: 12/11/17 06:26 Dose: 650 mg Albuterol/Ipratropium (Duoneb) 3 ml NEB [id number] SANDI Last Admin: 12/11/17 10:25 Dose: 3 ml Apixaban (Eliquis) 5 mg PO BID [facility] Last Admin: 12/11/17 11:46 Dose: 5 mg Ascorbic Acid (Vitamin C) 500 mg PO DAILY [facility] Last Admin: 12/11/17 11:46 Dose: 500 mg Bisacodyl (Dulcolax) 10 mg PO DAILYPRN PRN PRN Reason: Constipation Bismuth Subsalicylate (Pepto Bismol) 2 tab PO Q1H PRN PRN Reason: Diarrhea/Loose Stools Carbidopa/Levodopa (Sinemet 25-250) 1 tab PO TID [facility] Last Admin: 12/11/17 11:48 Dose: 1 tab Cholecalciferol (Vitamin D3) 1,000 units PO DAILY [facility] Last Admin: 12/11/17 11:46 Dose: 1,000 units Dextrose/Water (Dextrose 50%) 25 gm SLOW IVP PRN PRN PRN Reason: Hypoglycemia Donepezil HCl (Aricept) 5 mg PO [facility] Last Admin: 12/10/17 20:53 Dose: 5 mg Duloxetine HCl (Cymbalta) 30 mg PO DAILY [facility] Last Admin: 12/11/17 11:46 Dose: 30 mg Famotidine (Pepcid) 20 mg PO BID [facility] Last Admin: 12/11/17 11:46 Dose: 20 mg Furosemide (Lasix) 20 mg SLOW IVP 0600,1400 [facility] Last Admin: 12/11/17 05:10 Dose: 20 mg Glucagon (Glucagon) 1 mg IM PRN PRN PRN Reason: Hypoglycemia Guaifenesin/Dextromethorphan (Robitussin Dm) 15 ml PO Q4H PRN PRN Reason: Cough Hydralazine HCl (Apresoline) 10 mg SLOW IVP Q6H PRN PRN Reason: SBP > 180 Last Admin: 12/09/17 00:56 Dose: 10 mg Dextrose/Water (D5w) 1,000 mls @ 0 mls/hr IV .Q0M PRN PRN Reason: Hypoglycemia Amino Acids/Electrolytes/Dextrose (Clinimix E 4.25/5) 1,000 mls @ 42 mls/hr IV .[id number] [facility] Last Admin: 12/11/17 04:34 Dose: 1,000 mls Insulin Glargine 35 units/ (Miscellaneous Medication) 0.35 mls @ 0 mls/hr SC [facility] Last Admin: 12/10/17 21:37 Dose: 0.35 mls Insulin Glargine 35 units/ (Miscellaneous Medication) 0.35 mls @ 0 mls/hr SC QAM [facility] Last Admin: 12/11/17 11:47 Dose: 0.35 mls Piperacillin Sod/Tazobactam (Sod 3.375 gm/ Sodium Chloride) 100 mls @ 200 mls/ hr IVPB 0300,0900,1500,2100 [facility] Vancomycin HCl 1 gm/ Device 200 mls @ 200 mls/hr IVPB 0200,1400 [facility] Insulin Human Regular (Humulin R) 0 units SC .AGGRESSIVE SLIDING PRN PRN Reason: Aggressive Sliding Scale Last Admin: 12/10/17 17:43 Dose: 9 unit Losartan Potassium (Cozaar) 25 mg PO DAILY [facility] Last Admin: 12/11/17 11:47 Dose: 25 mg Magnesium Oxide (Magnesium Oxide) 400 mg PO DAILY [facility] Last Admin: 12/11/17 11:47 Dose: 400 mg Metoprolol Tartrate (Lopressor) 50 mg PO DAILY [facility] Last Admin: 12/11/17 11:47 Dose: 50 mg Miscellaneous Medication (Pharmacy To Dose) 1 each IVPB PRN PRN PRN Reason: Pharmacy to dose Nystatin (Mycostatin Powder) 0 gm TOP PRN PRN PRN Reason: MASD Last Admin: 12/07/17 09:22 Dose: 1 applic Ondansetron HCl (Zofran Odt) 4 mg PO Q6H PRN PRN Reason: Nausea/Vomiting Ondansetron HCl (Zofran) 4 mg IVP Q6H PRN PRN Reason: Nausea/Vomiting Last Admin: 11/22/17 11:39 Dose: 4 mg Saccharomyces Boulardii (Florastor) 250 mg PO BID [facility] Last Admin: 12/11/17 11:48 Dose: 250 mg Sodium Chloride (Flush - Normal Saline) 10 ml IVF Q12HR [facility] Last Admin: 12/11/17 11:48 Dose: 10 ml Sodium Chloride (Flush - Normal Saline) 10 ml IVF PRN PRN PRN Reason: Saline Flush Last Admin: 12/08/17 06:03 Dose: 10 ml
[2017-12-11] MEDS ORDERED: ISOVUE-370 76%-LOCM 1 ML ONE (14:55)
[2017-12-11] MEDS: Vancomycin HCl 1 GM in Premix Bag 1 BAG IVPB SCH (15:07)
[2017-12-11] MEDS: Insulin Regular 300 UNITS/3 ML VIAL SC PRN ×2 (15:10→17:41)
[2017-12-11] MEDS: Piperacillin/Tazobactam 3.375 GM in Sodium Chloride 0.9% 100 ML IVPB SCH ×2 (16:15→19:59)
[2017-12-11] MEDS: Nystatin Powder 15 GM BOT TOP PRN (16:15)
[2017-12-11] MEDS ORDERED: Sodium Chloride 0.9% 500 ML IV SCH (17:00)
[2017-12-11] MEDS: Donepezil HCl 5 MG TAB PO SCH (19:59)
--- NOTE | 2017-12-11 21:47 | CT ---
CT ABDOMEN AND PELVIS WITH IV CONTRAST: 12/11/17 HISTORY: Abdominal guarding, dementia, fever. COMPARISON: None available. FINDINGS: There is a small to moderate sized right pleural effusion with small left pleural effusion. There is consolidation seen at each lung base, greater on the right probably related to passive atelectasis al though pneumonia cannot be entirely excluded. There are coronary artery calcifications as well as calcifications involving the mitral valve annulus . Calcified granulomata are seen at the right lung base. The liver, spleen, pancreas, bilateral adrenal glands, kidneys, and urinary bladder demonstrate a nor mal CT appearance. Vascular calcifications are seen in the abdominal aorta and involving the iliac arteries. There is evidence of hysterectomy. There is thickening of the ore[place] of the distal sigmoid colon and involving the rectum with moderate a mount of retained fecal material seen in this region. There is perirectal inflammatory changes identi fied. Stercoral colitis is a possibility. No free intraperitoneal gas is visualized. Tiny amount of f luid is seen in the presacral location, but no additional free fluid is seen in the abdomen or pelvis . There is no fluid collection seen to suggest an abscess. No enlarged lymph nodes are seen by CT siz e criteria. Multilevel degenerative changes are seen in the spine. There are prominent calcifications seen centrally within the pelvis which may represent a calcified l ymph node. There is mild subcutaneous edema seen in the lower lateral flank regions and lateral aspec t of the pelvis bilaterally. Heterotopic ossification is seen medial to the left proximal femur and hip. IMPRESSION: 1. Bowel wall thickening and mild distention of the distal sigmoid colon and rectum with adjacen t pericolonic inflammatory changes. Findings may be related to stercoral colitis. There is a moderate amount of retained fecal material within this portion of the colon. There is also suggestion of wall mild thickening involving a portion of the descending colon with minimal adjacent inflammatory drummond es also seen in this region which may be related to colitis. 2. No free intraperitoneal gas is seen. There is a very small amount of free fluid seen in the p resacral location. 3. Moderate right and small left pleural effusions with consolidation at each lung base probably related to passive atelectasis; although, pneumonia is a consideration, especially at the right lung base. 4. Remainder of the incidental findings are as described above. POS: [facility]
[2017-12-12] MEDS: Acetaminophen 325 MG TAB PO PRN ×4 (01:16→17:04)
[2017-12-12] MEDS ORDERED: Sodium Chloride 0.9% 1,000 ML IV SCH (01:30)
[2017-12-12] MEDS: Piperacillin/Tazobactam 3.375 GM in Sodium Chloride 0.9% 100 ML IVPB SCH ×2 (02:51→09:09)
[2017-12-12] MEDS: Vancomycin HCl 1 GM in Premix Bag 1 BAG IVPB SCH ×2 (03:57→14:58)
[2017-12-12 05:38] LABS: Band 12 % (5-11); Hemoglobin 9.5 g/dL (12.0-16.0); Lymphocytes 9 % (21-51); MDiff Complete? YES; Mean Corpuscular HGB CONC 31.3 g/dL (32.0-36.0); Mean Corpuscular Hemoglobin 27.4 pg (27.0-31.0); Mean Corpuscular Volume 87.6 fL (78.0-98.0); Mean Platelet Volume 8.2 fL (7.4-10.4); Monocytes 4 % (0-10); Neutrophil 75 % (42-75); Platelet Count 274 thou/uL (130-400); RBC Distribution Width 15.3 % (11.5-14.5); Red Blood Cell (RBC) Count 3.48 mill/uL (4.20-5.40); White Blood Cell (WBC) Count 29.5 thou/uL (4.8-10.8)
[2017-12-12 06:25] LABS: Anion Gap 14 mmol/L (10-20); BUN (Urea Nitrogen) 31 mg/dL (9.8-20.1); Calc. Creatinine Clearance 0 mL/min (70-130); Carbon Dioxide 23 mmol/L (23-31); Chloride 107 mmol/L (98-107); Estimated GFR-MDRD 41; Glucose 76 mg/dL (83-110); Potassium 3.3 mmol/L (3.5-5.1); Sodium 141 mmol/L (136-145)
[2017-12-12] MEDS ORDERED: Potassium Chloride 20 MEQ TAB PO SCH (09:00)
[2017-12-12] MEDS: Insulin Glargine 35 UNITS in Pre-Filled Syringe 1 EACH SC SCH ×2 (09:07→21:04)
[2017-12-12] MEDS: Ascorbic Acid 500 mg Chewable Tablet PO SCH (09:07)
[2017-12-12] MEDS: Magnesium Oxide 400 MG TAB PO SCH (09:07)
[2017-12-12] MEDS: Saccharomyces boulardii 250 MG CAP PO SCH ×2 (09:07→23:24)
[2017-12-12] MEDS: Famotidine 20 MG TAB PO SCH ×2 (09:07→23:24)
[2017-12-12] MEDS: Carbidopa/Levodopa 25-250 mg Tablet PO SCH ×3 (09:07→23:23)
[2017-12-12] MEDS: DULoxetine 30 MG CAP PO SCH (09:08)
[2017-12-12] MEDS: Apixaban 5 MG TAB PO SCH ×2 (09:08→23:23)
[2017-12-12] MEDS: Losartan 25 MG TAB PO SCH (09:16)
[2017-12-12] MEDS: Metoprolol Tartrate 50 MG TAB PO SCH (09:16)
[2017-12-12] MEDS: Nystatin Powder 15 GM BOT TOP PRN (09:25)
--- NOTE | 2017-12-12 11:11 | CON ---
DATE OF CONSULTATION: 12/11/2017 REASON FOR CONSULTATION: Fever. 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 A few days later, she developed diarrhea which was tested and the stool was found to be Clostridium difficile positive. She was started on oral vancomycin, but she continued to have diarrhea, continues to develop progression of her volume depletion and was admitted. Patient was brought to [facility] on 11/05/2017. On arrival, she was afebrile a little bit tachycardic. During the hospital stay, she was observed in telemetry. During those days at [place], she had a lowest of blood glucose of 40. Endocrinology was consulted and they held her long-acting insulin completely. Nutritional therapy was recommended. The patient started to improve her oral intake. The blood glucose was stabilized without any further hypoglycemic events. Metformin was discontinued and she was placed on low dose of long-acting insulin. Losartan was lowered as well and regarding the diarrhea, she did not have any bowel movements during the hospital stay. Since she has no evidence of leukocytosis or fever, she was placed on increased dose of vancomycin to 250 mL q.6 hour to complete a 14-day course with probiotics. A CT scan of the brain done during that admission showed moderate chronic microvascular ischemic disease, nasal bone fractures and a prominent right sphenoid sinus opacification with associated periosteal thickening indicating sequelae from chronic sinusitis, superimposed acute process was felt to be likely because of the interval progression. A chest x- ray done showed no evidence of infiltrates. No microbiology data was obtained during this visit. Subsequently, she went elsewhere and is not clear that she went to [facility], I contacted the custodial and they confirmed that she had not been back since she was transferred to [facility] at the end of October. She developed this worsening with lethargy, altered mental status and apparently she had some abdominal pain which was not able to interact properly with examiner. PAST MEDICAL HISTORY: Atrial fibrillation, vascular dementia with Parkinson disease, prior CVAs, type 2 diabetes, hypertension, and this evidence of sphenoid sinusitis with evidence of progression according to the CT scan done at the [facility] in October. SURGICAL HISTORY: Not significant. SOCIAL HISTORY: She had been from [facility]. No smoking history. FAMILY HISTORY: Noncontributory. ALLERGIES: ERYTHROMYCIN, INFLUENZA, VACCINE and AZITHROMYCIN. MEDICATIONS: Tylenol, DuoNeb, Clinimix Eliquis, vitamin C, Dulcolax, Pepto- Bismol, Sinemet, dextrose, Cymbalta, losartan, metoprolol, nystatin, Zosyn and vancomycin. PHYSICAL EXAMINATION: VITAL SIGNS: The patient has been afebrile on arrival and then temperature went up to 101.4 on 12/09/2017. She started having fevers consistently from the 26th through the 28th up to 102.5 and the other vital signs are not particularly remarkable except for tachycardia and tachypnea. O2 sats went up to 94-96. SKIN: Not remarkable. She had no areas of skin breakdown. The patient has peripheral IV access. HEENT: Patient keeps her eyes tightly closed, resists any attempts to open her eyes for visualization of the orbits. I could not get a good view of her eyes for evaluation. Likewise, she would press her jaws shunt and did not allow me to inspect her oral cavity. There is stiffness in the neck. LUNGS: She has bilateral lung sounds with faint basilar crackles. HEART: S1, S2, irregular rate and rhythm with a soft aortic murmur. ABDOMEN: Somewhat distended, but soft, some guarding in the upper segments of the abdomen and the right lower quadrant as well. No ascites noted. No bladder distention. EXTREMITIES: She is diffusely stiff. She does not follow commands, does not interact with examiner. There is clonus which was persistent in the right lower extremity. Plantar responses are upgoing bilaterally. Pulses are 1+ in dorsalis pedis. Trace edema in lower extremities. NEUROLOGIC: She again did not interact with examiner and she basically moaned and groaned during the examination. LABORATORY DATA: White cell count is up to 18.6, hemoglobin 9.3, platelets 273 with 71% neutrophils, 16% bands. The sodium 141, creatinine 1.27, calcium 9.0, magnesium 1.3 and the bilirubin total 0.5, AST 13, ALT 7, alkaline phosphatase 74. BNP was 159, albumin 2.6, globulin 2.4. TSH was 1.6. Microbiology with a urine culture on admission with Klebsiella pneumoniae with the broad susceptibility profile. Repeat urine culture with yeast and nonhemolytic Streptococcus. Blood cultures negative x4. We have a report of chest CT angio with no central or segmental pulmonary embolism, basilar atelectasis. Brain CT revealed acute sinusitis involving maxillary sinus and ethmoid air cells. She had abdomen and pelvis CT which showed thickening of the bowel, mild distention of the distal sigmoid colon with adjacent pericolonic inflammatory changes, moderate amount of retained fecal material, again at this point in the colon, mild thickening right on the portion of the ascending colon with minimal adjacent inflammatory changes. ASSESSMENT: 1. Atrial fibrillation with multi-infarct dementia and Parkinson disease. 2. Change in mental status with acute sphenoid and maxillary sinusitis which is progressing since the admission at [facility]. 3. Clostridium difficile colitis treated with still evidence of some inflammatory changes in the colon. DISCUSSION: The most likely scenario is sinusitis of the sphenoid and maxillary , more complicated clinical course with cavernous sinus thrombosis, meningitis is considered possible. The significance of the findings in the CT of abdomen is not clear, but she could still have active colitis. May consider fluoroscopy -guided spinal fluid evaluation and I would continue Zosyn and vancomycin or transition to Rocephin, Flagyl, and vancomycin since it would have better penetration in the central nervous system or Meropenem in view of her cefadroxil reported allergy history. [facility] CENTERRadha
[2017-12-12 11:16] LABS: Magnesium 1.3 mg/dL (1.6-2.6); Phosphorus 4.4 mg/dL (2.3-4.7)
[2017-12-12] MEDS: D5W-AA 4.25% with LYTES 1,000 ML IV SCH ×2 (12:26→22:56)
--- NOTE | 2017-12-12 13:50 | RAD ---
SINGLE VIEW OF THE CHEST: COMPARISON: 12/06/17, 12/10/17. HISTORY: Fever. Evaluate for infection. FINDINGS: A single view of the chest shows a normal-size cardiomediastinal silhouette. Low lung volumes are pr esent. There is an area of airspace opacity projecting into the right lower lobe which may represent an infiltrate. No pleural effusion is seen. IMPRESSION: Possible early right lower lobe infiltrate. POS: [facility]
[2017-12-12] MEDS ORDERED: Meropenem 2 GM, IV Admixture Fee-Chemo 1 UNITS in Sodium Chloride 0.9% 100 ML IVPB SCH (14:00)
[2017-12-12 14:39] LABS: Vancomycin, Trough 21.2 ug/mL
[2017-12-12] MEDS: metroNIDAZOLE 500 MG in Premix Bag 1 BAG IVPB SCH (16:54)
[2017-12-12] MEDS: Vancomycin HCl 25 MG/ML Oral PO SCH ×2 (16:59→23:24)
[2017-12-12] MEDS ORDERED: MEROPENEM 1 GM/50 ML 1 GM in Premix Bag 1 BAG IVPB SCH (17:00)
--- NOTE | 2017-12-12 17:47 | PDOC.PN ---
- Subjective Encounter Start Date: 12/12/17 Encounter Start Time: 17:47 Pt seen for followup re: c. difficile diarrhea. Lethargic, nonverbal, unable to complete ROS. - Objective Resuscitation Status: Resuscitation Status DNR:Do Not Resuscitate Vital Signs & Weight: Vital Signs (12 hours) Temp Pulse Pulse Resp BP BP Pulse Ox 12/12/17 17:13 102.5 F H 128 H 54 H 105/71 95 12/12/17 16:05 108 H 40 H 12/12/17 14:01 129 H 98/62 12/12/17 11:00 100.4 F H 131 H 56 H 101/69 97 12/12/17 10:35 131 H 48 H 95 12/12/17 09:52 108/72 12/12/17 08:53 101.6 F H 131 H 46 H 108/72 12/12/17 08:00 95 12/12/17 06:23 96 12/12/17 06:20 122 H 44 H 96 Pulse Ox 12/12/17 17:13 12/12/17 16:05 12/12/17 14:01 96 12/12/17 11:00 12/12/17 10:35 12/12/17 09:52 12/12/17 08:53 12/12/17 08:00 12/12/17 06:23 12/12/17 06:20 Weight Admit Weight 187 lb 14.4 oz Weight 187 lb 14.4 oz I&O: 12/11/17 12/12/17 12/13/17 06:59 06:59 06:59 Intake Total 1253 4297 Output Total 3 Balance 1250 4297 Result Diagrams: 12/12/17 04:29 12/12/17 04:29 Additional Labs: Accuchecks 12/12/17 12/12/17 12/12/17 16:51 10:59 04:50 POC Glucose 76 94 83 12/11/17 20:09 POC Glucose 164 H Phys Exam - Physical Examination Obese HEENT: moist MMs Neck: supple Respiratory: clear to auscultation bilateral Cardiovascular: RRR Gastrointestinal: soft Neurological: moves all 4 limbs Deviation from normal: Unable to assess Dx/Plan (1) Clostridium difficile diarrhea Code(s): A04.72 - ENTEROCOLITIS D/T CLOSTRIDIUM DIFFICILE, NOT SPCF RECUR Status: Acute Comment: start enteral vancomycin, iv metronidazole (2) Aspiration pneumonia Code(s): J69.0 - PNEUMONITIS DUE TO INHALATION OF FOOD AND VOMIT Status: Acute Comment: suspected, based on clinical presentation and chest x-ray. Continue empiric antibiotics as below to also cover other possible sources fo infection (3) Metabolic encephalopathy Code(s): G93.41 - METABOLIC ENCEPHALOPATHY Status: Acute Comment: Flucutating mental status, worse today (4) Hypertension Code(s): I10 - ESSENTIAL (PRIMARY) HYPERTENSION Status: Chronic Comment: controlled (5) Sacral decubitus ulcer, stage II Code(s): L89.152 - PRESSURE ULCER OF SACRAL REGION, STAGE 2 Status: Chronic (6) UTI due to Klebsiella species Code(s): N39.0 - URINARY TRACT INFECTION, SITE NOT SPECIFIED; B96.1 - KLEBSIELLA PNEUMONIAE THE CAUSE OF DISEASES CLASSD ELSWHR Status: Resolved - Plan * . Review of Systems - Medications/Allergies Allergies/Adverse Reactions: Allergies Allergy/AdvReac Type Severity Reaction Status Date / Time azithromycin [From Zithromax] Allergy Verified 11/19/17 01:08 cefadroxil [From Duricef] Allergy Verified 11/19/17 01:08 erythromycin base Allergy Verified 11/19/17 01:08 influenza virus vaccine, Allergy Verified 11/19/17 01:08 specific Penicillins Allergy Verified 11/19/17 01:08 Medications: Current Medications Acetaminophen (Tylenol) 650 mg PO Q4H PRN PRN Reason: Headache/Fever or Pain Last Admin: 12/12/17 17:04 Dose: 650 mg Acetaminophen (Tylenol) 650 mg LA Q4H PRN PRN Reason: Headache/Fever or MILD PAIN Last Admin: 12/11/17 06:26 Dose: 650 mg Albuterol/Ipratropium (Duoneb) 3 ml NEB [id number] SANDI Last Admin: 12/12/17 16:05 Dose: 3 ml Apixaban (Eliquis) 5 mg PO BID SANDI Last Admin: 12/12/17 09:08 Dose: 5 mg Ascorbic Acid (Vitamin C) 500 mg PO DAILY SANDI Last Admin: 12/12/17 09:07 Dose: 500 mg Bisacodyl (Dulcolax) 10 mg PO DAILYPRN PRN PRN Reason: Constipation Bismuth Subsalicylate (Pepto Bismol) 2 tab PO Q1H PRN PRN Reason: Diarrhea/Loose Stools Carbidopa/Levodopa (Sinemet 25-250) 1 tab PO TID [facility] Last Admin: 12/12/17 16:30 Dose: 1 tab Cholecalciferol (Vitamin D3) 1,000 units PO DAILY [facility] Last Admin: 12/12/17 09:07 Dose: 1,000 units Dextrose/Water (Dextrose 50%) 25 gm SLOW IVP PRN PRN PRN Reason: Hypoglycemia Donepezil HCl (Aricept) [address] [facility] Last Admin: 12/11/17 19:59 Dose: 5 mg Duloxetine HCl (Cymbalta) 30 mg PO DAILY [facility] Last Admin: 12/12/17 09:08 Dose: 30 mg Famotidine (Pepcid) 20 mg PO BID [facility] Last Admin: 12/12/17 09:07 Dose: 20 mg Glucagon (Glucagon) 1 mg IM PRN PRN PRN Reason: Hypoglycemia Guaifenesin/Dextromethorphan (Robitussin Dm) 15 ml PO Q4H PRN PRN Reason: Cough Hydralazine HCl (Apresoline) 10 mg SLOW IVP Q6H PRN PRN Reason: SBP > 180 Last Admin: 12/09/17 00:56 Dose: 10 mg Dextrose/Water (D5w) 1,000 mls @ 0 mls/hr IV .Q0M PRN PRN Reason: Hypoglycemia Amino Acids/Electrolytes/Dextrose (Clinimix E 4.25/5) 1,000 mls @ 42 mls/hr IV .[id number] [facility] Last Admin: 12/12/17 12:26 Dose: Not Given Insulin Glargine 35 units/ (Miscellaneous Medication) 0.35 mls @ 0 mls/hr SC [facility] Last Admin: 12/11/17 20:10 Dose: 0.35 mls Insulin Glargine 35 units/ (Miscellaneous Medication) 0.35 mls @ 0 mls/hr SC QAM [facility] Last Admin: 12/12/17 09:07 Dose: 0.35 mls Metronidazole 500 mg/ Device 100 mls @ 100 mls/hr IVPB 0800,1600,2359 [facility] Last Admin: 12/12/17 16:54 Dose: 100 mls Vancomycin HCl 1.25 gm/ Sodium (Chloride) 250 mls @ 166.667 mls/hr IVPB 1400 SANDI Meropenem 1 gm/ Device 50 mls @ 100 mls/hr IVPB Q8HR [facility] Insulin Human Regular (Humulin R) 0 units SC .AGGRESSIVE SLIDING PRN PRN Reason: Aggressive Sliding Scale Last Admin: 12/11/17 17:41 Dose: 9 unit Losartan Potassium (Cozaar) 25 mg PO DAILY [facility] Last Admin: 12/12/17 09:16 Dose: Not Given Magnesium Oxide (Magnesium Oxide) 400 mg PO DAILY [facility] Last Admin: 12/12/17 09:07 Dose: 400 mg Metoprolol Tartrate (Lopressor) 50 mg PO DAILY [facility] Last Admin: 12/12/17 09:16 Dose: Not Given Miscellaneous Medication (Pharmacy To Dose) 1 each IVPB PRN PRN PRN Reason: Pharmacy to dose Nystatin (Mycostatin Powder) 0 gm TOP PRN PRN PRN Reason: MASD Last Admin: 12/12/17 09:25 Dose: 1 applic Ondansetron HCl (Zofran Odt) 4 mg PO Q6H PRN PRN Reason: Nausea/Vomiting Ondansetron HCl (Zofran) 4 mg IVP Q6H PRN PRN Reason: Nausea/Vomiting Last Admin: 11/22/17 11:39 Dose: 4 mg Saccharomyces Boulardii (Florastor) 250 mg PO BID [facility] Last Admin: 12/12/17 09:07 Dose: 250 mg Sodium Chloride (Flush - Normal Saline) 10 ml IVF Q12HR [facility] Last Admin: 12/12/17 09:09 Dose: 10 ml Sodium Chloride (Flush - Normal Saline) 10 ml IVF PRN PRN PRN Reason: Saline Flush Last Admin: 12/08/17 06:03 Dose: 10 ml Vancomycin HCl (First Vancomycin) 125 mg PO QID [facility] Last Admin: 12/12/17 16:59 Dose: 125 mg
[2017-12-12] MEDS: Dextrose 50% Abboject 50 ML SYRINGE SLOW IVP PRN (20:44)
[2017-12-12] MEDS: MEROPENEM 1 GM/50 ML 1 GM in Premix Bag 1 BAG IVPB SCH (20:45)
[2017-12-12] MEDS: Acetaminophen 650 MG Suppository PR PRN (21:05)
[2017-12-12] MEDS: Donepezil HCl 5 MG TAB PO SCH (23:24)
[2017-12-13] MEDS: metroNIDAZOLE 500 MG in Premix Bag 1 BAG IVPB SCH ×4 (00:54→21:29)
[2017-12-13] MEDS: Acetaminophen 650 MG Suppository PR PRN ×3 (00:55→10:58)
[2017-12-13] MEDS ORDERED: Sodium Chloride 0.9% 500 ML IV SCH (03:45)
--- NOTE | 2017-12-13 04:41 | PDOC.EVN ---
Event Note - Event Note Event Note: pt has continued to deteriorate, persistent fever, tachypnea, not improving even with strong ABT's, we have reviewed chart and primary team plan of care, I have had discussion regarding goals of care with daughter(POA), son, and , given deterioration, daughter has stated that the pt did not want to be intubated, resuscitated, no to be treated aggressively, therefore decision in the room was to place her in comfort care, except for the antibiotics that they would like to continue , they are not willing for the pt to have lumbar punction.
[2017-12-13] MEDS: Dextrose 50% Abboject 50 ML SYRINGE SLOW IVP PRN ×2 (05:11→09:06)
[2017-12-13] MEDS: Morphine 2 MG/ML SYRINGE SLOW IVP PRN ×2 (05:12→09:25)
[2017-12-13] MEDS: MEROPENEM 1 GM/50 ML 1 GM in Premix Bag 1 BAG IVPB SCH (05:30)
[2017-12-13 05:53] LABS: Magnesium 1.9 mg/dL (1.6-2.6); Phosphorus 5.4 mg/dL (2.3-4.7)
[2017-12-13 08:48] LABS: Band 24 % (5-11); Hemoglobin 9.2 g/dL (12.0-16.0); Lymphocytes 6 % (21-51); Mean Corpuscular HGB CONC 30.1 g/dL (32.0-36.0); Mean Corpuscular Hemoglobin 26.6 pg (27.0-31.0); Mean Corpuscular Volume 88.4 fL (78.0-98.0); Mean Platelet Volume 8.5 fL (7.4-10.4); Monocytes 1 % (0-10); Neutrophil 69 % (42-75); Platelet Count 302 thou/uL (130-400); RBC Distribution Width 15.8 % (11.5-14.5); Red Blood Cell (RBC) Count 3.46 mill/uL (4.20-5.40); White Blood Cell (WBC) Count 38.2 thou/uL (4.8-10.8)
[2017-12-13 08:49] LABS: MDiff Complete? YES
[2017-12-13 08:51] LABS: Anion Gap 17 mmol/L (10-20); BUN (Urea Nitrogen) 48 mg/dL (9.8-20.1); Calc. Creatinine Clearance 25 mL/min (70-130); Calcium 7.9 mg/dL (7.8-10.44); Carbon Dioxide 22 mmol/L (23-31); Chloride 109 mmol/L (98-107); Estimated GFR-MDRD 19; Glucose 32 mg/dL (83-110); Potassium 3.9 mmol/L (3.5-5.1); Sodium 144 mmol/L (136-145)
[2017-12-13] MEDS: Vancomycin HCl 25 MG/ML Oral PO SCH ×4 (09:30→21:29)
[2017-12-13] MEDS: Ascorbic Acid 500 mg Chewable Tablet PO SCH (09:33)
[2017-12-13] MEDS: Apixaban 5 MG TAB PO SCH ×2 (09:33→21:28)
[2017-12-13] MEDS: Carbidopa/Levodopa 25-250 mg Tablet PO SCH ×3 (09:34→21:28)
[2017-12-13] MEDS: DULoxetine 30 MG CAP PO SCH (09:35)
[2017-12-13] MEDS: Insulin Glargine 35 UNITS in Pre-Filled Syringe 1 EACH SC SCH (09:40)
[2017-12-13] MEDS: Famotidine 20 MG TAB PO SCH ×2 (09:40→21:29)
[2017-12-13] MEDS: Losartan 25 MG TAB PO SCH (09:41)
[2017-12-13] MEDS: Metoprolol Tartrate 50 MG TAB PO SCH (09:41)
[2017-12-13] MEDS: Magnesium Oxide 400 MG TAB PO SCH (09:41)
[2017-12-13] MEDS: Saccharomyces boulardii 250 MG CAP PO SCH ×2 (09:41→21:29)
[2017-12-13] MEDS: Nystatin Powder 15 GM BOT TOP PRN (11:00)
[2017-12-13] MEDS ORDERED: Lorazepam 2 MG/ML VIAL SLOW IVP PRN (13:12)
[2017-12-13] MEDS ORDERED: Morphine 2 MG/ML SYRINGE SLOW IVP PRN (13:12)
[2017-12-13] MEDS ORDERED: Vancomycin HCl 1.25 GM in Sodium Chloride 0.9% 250 ML 250 ML IVPB SCH (14:00)
--- NOTE | 2017-12-13 14:02 | PDOC.PN ---
- Subjective Encounter Start Date: 12/13/17 Encounter Start Time: 14:00 Pt seen for followup re: acute encephalopathy. Nonverbal, unable to complete ROS. - Objective Resuscitation Status: Resuscitation Status DNR:Do Not Resuscitate MAR Reviewed: Yes Vital Signs & Weight: Vital Signs (12 hours) Temp Pulse Resp BP Pulse Ox 12/13/17 11:30 98.1 F 12/13/17 09:55 40 H 99 12/13/17 09:34 126 H 45 H 98 12/13/17 08:00 101.7 F H 126 H 95/51 L 99 12/13/17 05:45 131 H 45 H 94 L Weight Admit Weight 187 lb 14.4 oz Weight 187 lb 14.4 oz I&O: 12/12/17 12/13/17 12/14/17 06:59 06:59 06:59 Intake Total 4297 2170 0 Balance 4297 2170 0 Result Diagrams: 12/13/17 04:49 12/13/17 04:49 Additional Labs: Accuchecks 12/13/17 12/13/17 12/12/17 11:07 05:09 21:59 POC Glucose 123 H 52 L* 102 12/12/17 12/12/17 20:28 16:51 POC Glucose 57 L* 76 Labs reviewed by me Phys Exam - Physical Examination Obese HEENT: moist MMs Neck: supple Respiratory: clear to auscultation bilateral Cardiovascular: RRR Gastrointestinal: soft Musculoskeletal: edema present Neurological: moves all 4 limbs Deviation from normal: Unable to assess Dx/Plan (1) Metabolic encephalopathy Code(s): G93.41 - METABOLIC ENCEPHALOPATHY Status: Acute Comment: Pt worse today. (2) Clostridium difficile diarrhea Code(s): A04.72 - ENTEROCOLITIS D/T CLOSTRIDIUM DIFFICILE, NOT SPCF RECUR Status: Acute (3) Aspiration pneumonia Code(s): J69.0 - PNEUMONITIS DUE TO INHALATION OF FOOD AND VOMIT Status: Acute (4) Hypertension Code(s): I10 - ESSENTIAL (PRIMARY) HYPERTENSION Status: Chronic (5) Sacral decubitus ulcer, stage II Code(s): L89.152 - PRESSURE ULCER OF SACRAL REGION, STAGE 2 Status: Chronic (6) UTI due to Klebsiella species Code(s): N39.0 - URINARY TRACT INFECTION, SITE NOT SPECIFIED; B96.1 - KLEBSIELLA PNEUMONIAE THE CAUSE OF DISEASES CLASSD ELSWHR Status: Resolved - Plan * . I discussed with patient's daughter Clau earlier today. Palliative care team also discussed with daughter. Family does not want hospice but want patient to be comfort measures only, no antibiotics or blood work. Pt to be started on PRN morphine and Ativan and oxygen for comfort measures. Prognosis poor. Review of Systems - Medications/Allergies Allergies/Adverse Reactions: Allergies Allergy/AdvReac Type Severity Reaction Status Date / Time azithromycin [From Zithromax] Allergy Verified 11/19/17 01:08 cefadroxil [From Duricef] Allergy Verified 11/19/17 01:08 erythromycin base Allergy Verified 11/19/17 01:08 influenza virus vaccine, Allergy Verified 11/19/17 01:08 specific Penicillins Allergy Verified 11/19/17 01:08 Medications: Current Medications Acetaminophen (Tylenol) 650 mg PO Q4H PRN PRN Reason: Headache/Fever or Pain Last Admin: 12/12/17 17:04 Dose: 650 mg Acetaminophen (Tylenol) 650 mg [place] Q4H PRN PRN Reason: Headache/Fever or MILD PAIN Last Admin: 12/13/17 10:58 Dose: 650 mg Albuterol/Ipratropium (Duoneb) 3 ml NEB Q4H PRN PRN Reason: Dyspnea/Wheezing/SOB Apixaban (Eliquis) 5 mg PO BID [facility] Last Admin: 12/13/17 09:33 Dose: Not Given Ascorbic Acid (Vitamin C) 500 mg PO DAILY [facility] Last Admin: 12/13/17 09:33 Dose: Not Given Bisacodyl (Dulcolax) 10 mg PO DAILYPRN PRN PRN Reason: Constipation Bismuth Subsalicylate (Pepto Bismol) 2 tab PO Q1H PRN PRN Reason: Diarrhea/Loose Stools Carbidopa/Levodopa (Sinemet 25-250) 1 tab PO TID [facility] Last Admin: 12/13/17 09:34 Dose: Not Given Cholecalciferol (Vitamin D3) 1,000 units PO DAILY [facility] Last Admin: 12/13/17 09:34 Dose: Not Given Dextrose/Water (Dextrose 50%) 25 gm SLOW IVP PRN PRN PRN Reason: Hypoglycemia Last Admin: 12/13/17 09:06 Dose: 25 gm Donepezil HCl (Aricept) 5 mg PO HS [facility] Last Admin: 12/12/17 23:24 Dose: Not Given Duloxetine HCl (Cymbalta) 30 mg PO DAILY [facility] Last Admin: 12/13/17 09:35 Dose: Not Given Famotidine (Pepcid) 20 mg PO BID [facility] Last Admin: 12/13/17 09:40 Dose: Not Given Glucagon (Glucagon) 1 mg IM PRN PRN PRN Reason: Hypoglycemia Guaifenesin/Dextromethorphan (Robitussin Dm) 15 ml PO Q4H PRN PRN Reason: Cough Hydralazine HCl (Apresoline) 10 mg SLOW IVP Q6H PRN PRN Reason: SBP > 180 Last Admin: 12/09/17 00:56 Dose: 10 mg Dextrose/Water (D5w) 1,000 mls @ 0 mls/hr IV .Q0M PRN PRN Reason: Hypoglycemia Amino Acids/Electrolytes/Dextrose (Clinimix E 4.25/5) 1,000 mls @ 42 mls/hr IV .[id number] [facility] Last Admin: 12/12/17 22:56 Dose: 1,000 mls Metronidazole 500 mg/ Device 100 mls @ 100 mls/hr IVPB 0800,1600,2359 [facility] Last Admin: 12/13/17 09:22 Dose: 100 mls Insulin Human Regular (Humulin R) 0 units SC .AGGRESSIVE SLIDING PRN PRN Reason: Aggressive Sliding Scale Last Admin: 12/11/17 17:41 Dose: 9 unit Lorazepam (Ativan) 0.5 mg SLOW IVP Q4H PRN PRN Reason: Anxiety/Agitation Losartan Potassium (Cozaar) 25 mg PO DAILY [facility] Last Admin: 12/13/17 09:41 Dose: Not Given Magnesium Oxide (Magnesium Oxide) 400 mg PO DAILY [facility] Last Admin: 12/13/17 09:41 Dose: Not Given Metoprolol Tartrate (Lopressor) 50 mg PO DAILY [facility] Last Admin: 12/13/17 09:41 Dose: Not Given Morphine Sulfate (Morphine) 1 mg SLOW IVP Q4H PRN PRN Reason: Severe Pain (7-10) Last Admin: 12/13/17 09:25 Dose: 1 mg Morphine Sulfate (Morphine) 2 mg SLOW IVP Q4H PRN PRN Reason: Pain Nystatin (Mycostatin Powder) 0 gm TOP PRN PRN PRN Reason: MASD Last Admin: 12/13/17 11:00 Dose: 1 applic Ondansetron HCl (Zofran Odt) 4 mg PO Q6H PRN PRN Reason: Nausea/Vomiting Ondansetron HCl (Zofran) 4 mg IVP Q6H PRN PRN Reason: Nausea/Vomiting Last Admin: 11/22/17 11:39 Dose: 4 mg Saccharomyces Boulardii (Florastor) 250 mg PO BID [facility] Last Admin: 12/13/17 09:41 Dose: Not Given Sodium Chloride (Flush - Normal Saline) 10 ml IVF Q12HR [facility] Last Admin: 12/13/17 09:30 Dose: 10 ml Sodium Chloride (Flush - Normal Saline) 10 ml IVF PRN PRN PRN Reason: Saline Flush Last Admin: 12/08/17 06:03 Dose: 10 ml Vancomycin HCl (First Vancomycin) 125 mg PO QID [facility] Last Admin: 12/13/17 09:30 Dose: Not Given
[2017-12-13] MEDS ORDERED: Morphine 10 MG/0.5 ML ORAL SYRINGE SL PRN (19:42)
[2017-12-13 21:08] VITALS: BP 58/39; TEMP 101.3
[2017-12-13] MEDS: Donepezil HCl 5 MG TAB PO SCH (21:29)
--- NOTE | 2017-12-15 00:07 | DIS ---
SUMMARY PRIMARY CARE PROVIDER: RADHA MARTÍNEZ M.D. DATE OF ADMISSION: 11/19/2017 DATE OF : Patient on 12/13/2017. DISCHARGE DIAGNOSES: 1. Toxic metabolic encephalopathy. 2. Aspiration pneumonia. 3. Urinary tract infection. 4. Clostridium difficile colitis. 5. Physical deconditioning. 6. Moderate protein-calorie malnutrition. 7. Sacral decubitus stage II ulcer, present on admission. CONSULTATIONS DURING THIS HOSPITALIZATION: Neurology, Dr. Carrol De La Rosa and Infectious Diseases, Dr. Richardson. HOSPITAL COURSE: Ms. Garcia is a very pleasant, 77-year-old lady, who was admitted to [facility] on 11/19/2017 for encephalopathy. Please refer to Dr. Carpenter's history and physic al note dated 11/19/2017 for further details regarding this admission. She was started on ceftriaxon e for urinary tract infection. Urine cultures grew pansensitive Klebsiella pneumoniae. Blood cultur es were negative. On 11/24/2017, she had a left upper extremity swelling. There was no DVT on ultrasound. There are a lso no acute changes on x-ray images. She also had diarrhea that day, but Clostridium difficile test was negative. She received Lasix for possible volume overload. She was also subsequently treated with intravenous Zosyn and vancomycin for aspiration pneumonia. After discussions with family regarding her poor oral intake, NG tube placement was attempted on 11/15, but unsuccessful. She was started on PPN on 12/01/2017. On 12/06/2017, antibiotics were dis continued because patient was afebrile. On 12/11/2017, she had a CT scan of the abdomen and pelvis, which showed bowel wall thickening and mild distention of the distal sigmoid colon and rectum with ad jacent pericolonic inflammatory changes, likely related to stercoral colitis. On 12/12/2017, she was found to have Clostridium difficile infection. She was seen by Infectious Dis eases service. She was treated with meropenem and vancomycin. Family did not wish for patient to sandoval ve lumbar puncture to look for any CHEMIST INSTRUMENTATION infection. The patient had fluctuating mental status throughout this hospitalization. Towards the end of the ho spital stay, she continued to decline markedly. On 12/13/2017, family wanted withdrawal of active tr eatments. Palliative care team was also following and was in discussions with the family. Palliativ e care recommended hospice care, but family did not wish to have hospice care. They wanted patient t o be only on comfort measures, either in the hospital or at a correction facility, but without i nvolvement of hospice care. DISCHARGE MEDICATIONS: All active treatments were withdrawn and comfort measures were initiated. Th e patient at 2330 hours on 12/13/2017. Many thanks for allowing me to participate in your patient's care. Please feel free to contact me wi th any questions or concerns.
== END 2017-12-13 23:30 | disposition expired | DRG 689 ==
LOC: ERS 12:45 → T4-B 17:13 → OBSVTOIN 11-20 08:02
PROVIDERS: ADMIT Internal Medicine Infectious Disease; ATTEND Internal Medicine Infectious Disease
DX: N39.0 Urinary tract infection, site not specified (principal); G92 Toxic encephalopathy; J69.0 Pneumonitis due to inhalation of food and vomit; A04.72 Enterocolitis due to Clostridium difficile, not specified as recurrent; E44.0 Moderate protein-calorie malnutrition; G20 Parkinson's disease; F02.80 Dementia in other diseases classified elsewhere, unspecified severity, without behavioral disturbance, psychotic disturbance, mood disturbance, and anxiety; Z86.73 Personal history of transient ischemic attack (TIA), and cerebral infarction without residual deficits; I48.91 Unspecified atrial fibrillation; E11.9 Type 2 diabetes mellitus without complications; I10 Essential (primary) hypertension; Z88.1 Allergy status to other antibiotic agents; Z88.7 Allergy status to serum and vaccine; L89.152 Pressure ulcer of sacral region, stage 2; Z68.30 Body mass index [BMI] 30.0-30.9, adult; B96.1 Klebsiella pneumoniae [K. pneumoniae] as the cause of diseases classified elsewhere; Z51.5 Encounter for palliative care; J01.00 Acute maxillary sinusitis, unspecified; J01.30 Acute sphenoidal sinusitis, unspecified; E83.42 Hypomagnesemia; R53.81 Other malaise; E86.0 Dehydration; R13.10 Dysphagia, unspecified; L71.9 Rosacea, unspecified; R00.0 Tachycardia, unspecified
CPT/HCPCS: 36415; 36416; 51701; 70450; 71045; 71275; 74177; 74230; 80048; 80053; 80202; 81003; 81015; 82040; 82140; 82553; 82565; 82805; 83605; 83735; 83880; 84100; 84443; 84478; 84484; 85014; 85018; 85025; 85049; 85652; 86140; 87040; 87077; 87086; 87103; 87186; 87324; 87449; 93005; 94640; 96361; 96365; A4216; A4353; G8978-GP-CM; G8978-GP-CN; G8979-GP-CL; G8987-GO-CM; G8987-GO-CN; G8988-GO-CK; G8988-GO-CN; G8989-GO-CN; G8996-GN-CI; G8996-GN-CK; G8997-GN-CI; J0360; J0696; J1815; J1940; J1956; J2185; J2270; J2405; J2543; J2930; J3370; J3475; J3480; J7050; J7612; J7620; J7644; P9047; Q0167